=== PATIENT | female | born 1960 | race Caucasian/White ===

== ENCOUNTER 2018-01-19 13:10 | Outpatient (CLI) | payer MEDICAID ==
[~2018-01-19] VITALS: Ht 165.1 cm; Wt 91.6 kg
[~2018-01-19 13:10] MED LIST: ALBUNEBRX IH; BLAC80CA PO; CMBV14.7IN IH; CYCL10TA45 GT; DEXL60CA PO; DICL100G13 TOP; DULO60CA6 PO; FENO145T20 PO; FLUT1DIS26 IH; FLUT50DI IH; GABA600T PO; GINK120C PO; LEVO125T6 PO; LISI10TA2 PO; OMG1KC PO; ROSU20TA14 PO; VIT1CAPS16 PO; VIT1TABL57 PO; ZINC50TA49 PO
[2018-01-19] MEDS ORDERED: PREG300C PO (15:22)
[2018-01-19] MEDS ORDERED: DEXL60CA PO (15:22)
[2018-01-19] MEDS ORDERED: ARIP5TAB12 PO (15:22)
[2018-01-19] MEDS ORDERED: FLUT16SP22 NSEACH (15:22)
[2018-01-19] MEDS ORDERED: CYAN10006 PO (15:22)
[2018-01-19] MEDS ORDERED: DULO60CA58 PO (15:22)
[2018-01-19] MEDS ORDERED: GINK120C PO (15:22)
[2018-01-19] MEDS ORDERED: LEVO112T55 PO (15:22)
[2018-01-19] MEDS ORDERED: IPRA4AER IH (15:22)
[2018-01-19] MEDS ORDERED: CYCL10TA9 PO (15:22)
[2018-01-19] MEDS ORDERED: ROSU20TA31 PO (15:22)
[2018-01-19] MEDS ORDERED: CHOL100045 PO (15:22)
[2018-01-19] MEDS ORDERED: LOSA100T8 PO (15:22)
[2018-01-19] MEDS ORDERED: BUDE10.2 IH (15:22)
[2018-01-19] MEDS ORDERED: DICL100G18 TP (15:22)
== END 2018-01-19 15:23 | disposition home or self-care (01) ==
LOC: PREOP 13:10
PROVIDERS: ATTEND Surgery
DX: Z01.818 Encounter for other preprocedural examination (principal)

== ENCOUNTER 2018-01-25 09:16 | Day surgery (SDC) | payer MEDICARE, MEDICAID ==
[~2018-01-25] VITALS: Ht 165.1 cm; Wt 91.6 kg
[~2018-01-25 09:16] MED LIST changes: +ARIP5TAB12 PO; +BUDE10.2 IH; +CHOL100045 PO; +CYAN10006 PO; +CYCL10TA9 PO; +DICL100G18 TP; +DULO60CA58 PO; +FLUT16SP22 NSEACH; +IPRA4AER IH; +LEVO112T55 PO; +LOSA100T8 PO; +PREG300C PO; +ROSU20TA31 PO
--- OUTSIDE RECORDS SUMMARY | 2018-01-25 09:20 | XMS REPORT | Continuity of Care Document ---
Author Author [facility] Organization [facility] Address Unknown Phone Unavailable Allergies Active Description Code Type Severity Reaction Onset Reported/Identified Relationship to Patient Clinical Status Yes No Known Drug Allergies [id number] Drug Allergy Unknown N/A 10/10/2010 Medications There is no data. Problems Date Dx Coded Attending Type Code Diagnosis Diagnosed By 01/19/2018 CHACE BASSETT, JASMIN Myers Ot Z01.818 ENCOUNTER FOR OTHER PREPROCEDURAL EXAMIN 01/19/2018 JASMIN MAS MD Ot Z01.818 ENCOUNTER FOR OTHER PREPROCEDURAL EXAMIN 01/19/2018 JASMIN MAS MD Ot Z01.818 ENCOUNTER FOR OTHER PREPROCEDURAL EXAMIN Procedures There is no data. Results There is no data. Encounters ACCT No. Visit Date/Time Discharge Status Pt. Type Provider Facility Loc./Unit Complaint [id number] 01/19/2018 13:10:00 01/19/2018 15:23:00 DIS Outpatient JASMIN MAS MD [facility] PREOP EGD [id number] 04/11/2013 09:17:00 04/11/2013 12:00:00 DIS Outpatient [id number] 04/07/2013 07:11:00 04/07/2013 23:59:59 CLS Outpatient [id number] 01/25/2018 09:16:00 ACT Outpatient JASMIN MAS MD [facility] ENDO MORRIS'S/GERD 61 01/25/2018 08:51:52 ACT Outpatient Pamela Edwards
[2018-01-25] MEDS ORDERED: NS IV 500 ML 500 ML IV PRN (09:24)
[2018-01-25] MEDS ORDERED: HURRICAINE EXT TUBE (BENZOCAINE) XX PRN (09:30)
[2018-01-25] MEDS ORDERED: MIDAZOLAM 2 MG/2 ML (VERSED) VIAL IVP ONE (09:30)
[2018-01-25] MEDS ORDERED: fentaNYL INJECTION 100 MCG/2 ML AMP IVP ONE (09:30)
[2018-01-25] MEDS ORDERED: MIDAZOLAM 2 MG/2 ML (VERSED) VIAL ONE ×3 (09:36→09:37)
--- NOTE | 2018-01-25 09:36 | History & Physicial ---
History of Present Illness History of Present Illness Reason for visit/HPI to undergo an upper endoscopy regarding previously found Frances's esophagitis and ongoing symptoms of reflux. Date of Admission 01/25/18 Date Seen by a Provider: Jan 25, 2018 Time Seen by a Provider: 09:31 I consulted on this patient on 01/25/18 09:31 Attending Physician Jasmin Diaz MD Admitting Physician Pamela Edwards DO Consult Allergies and Home Medications Allergies Coded Allergies: No Known Drug Allergies (Unverified , 10/10/10) Home Medications Albuterol/Ipratropium 4 Gm Aero, 2 PUFF IH Q4H PRN for WHEEZING, (Reported) Aripiprazole 5 Mg Tablet, 5 MG PO DAILY, (Reported) Budesonide/Formoterol Fumarate 10.2 Gm Hfa.aer.ad, 2 PUFF IH BID, (Reported) Cholecalciferol (Vitamin D3) 1,000 Unit Tablet, 4,000 UNIT PO DAILY, (Reported) Cyanocobalamin (Vitamin B-12) 1,000 Mcg Tablet, 1,000 MCG PO DAILY, (Reported) Cyclobenzaprine HCl 10 Mg Tablet, 10 MG PO TID, (Reported) Dexlansoprazole 60 Mg Cap.dr.bp, 60 MG PO DAILY, (Reported) Diclofenac Sodium 100 Gm Gel..gram., 2 GM TP TID PRN for JOINT PAIN, (Reported) Duloxetine HCl 60 Mg Capsule.dr, 60 MG PO BID, (Reported) Fluticasone Propionate 16 Gm [place].susp, 2 SPRAY NSEACH DAILY, (Reported) Ginkgo Biloba Extract 120 Mg Capsule, 120 MG PO DAILY, (Reported) Levothyroxine Sodium 112 Mcg Tablet, 112 MCG PO DAILY, (Reported) Losartan Potassium 100 Mg Tablet, 100 MG PO DAILY, (Reported) Pregabalin 300 Mg Capsule, 300 MG PO TID, (Reported) Rosuvastatin Calcium 20 Mg Tablet, 20 MG PO DAILY, (Reported) Patient Home Medication List Home Medication List Reviewed: Yes Past Cyfqswe-Pzkddg-Uxxtpn Hx Patient Social History Marrital Status: Employed/Student: retired Type Used: Cigarettes Recent Foreign Travel: No Contact w/other who traveled: No Recent Hopitalizations: No Immunizations Up To Date Date of Pneumonia Vaccine: Mar 03, 2012 Date of Influenza Vaccine: Jan 11, 2018 Seasonal Allergies Seasonal Allergies: Yes Surgeries Adenoidectomy, Gallbladder, Hysterectomy, Thyroidectomy, Tonsillectomy, Tubal Ligation Respiratory Yes COPD Cardiovascular Yes Hypertension Neurological Yes Headaches /Migraines, Neuropathy 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 0.0oz. [id number]; 33.6 BMI Method: General Appearance: Anxious Neck: Normal Inspection Respiratory: Lungs Clear Cardiovascular: Regular Rate, Rhythm Gastrointestinal: Non Tender, Soft Extremity: Normal Inspection Neurologic/Psychiatric: Alert, Oriented x3 Skin: Warm/Dry Assessment/Plan Assessment and Plan lady with symptoms of reflux disease and previous Frances's esophagitis. Reports of dysphagia. For upper endoscopy with possible balloon dilatation Admission Diagnosis Admission Status: Other (Outpt Proc) JASMIN DIAZ MD Jan 25, 2018 09:36
[2018-01-25] MEDS ORDERED: HURRICAINE EXT TUBE (BENZOCAINE) ONE (09:37)
[2018-01-25] MEDS ORDERED: fentaNYL INJECTION 100 MCG/2 ML AMP ONE (09:37)
--- NOTE | 2018-01-25 09:38 | Conscious Sedation/ASA ---
Conscious Sedation Pre-Proced Time 09:38 ASA Score 2 For ASA 3 and 4: Consider anesthesia and medical clearance. Also, for patients with a history of failed moderate sedation consider anesthesia. Airway Lungs Heart ASA score ASA 1: a normal healthy patient ASA 2: a patient with a mild systemic disease (mid diabetes, controlled hypertension, obesity ASA 3: a patient with a severe systemic disease that limits activity (angina , COPD, prior Myocardial infarction) ASA 4: a patient with an incapacitating disease that is a constant threat to life (CHF, renal failure) ASA 5: a moribund patient not expected to survive 24 hrs. (ruptured aneurysm) ASA 6: a declared brain patient whose organs are being harvested. For emergent operations, add the letter E after the classification Mallampati Classification Grade 2 Sedation Plan Discussed options with patient/fam The patient is an appropriate candidate to undergo the planned procedure, sedation, and anesthesia. The patient immediately re-assessed prior to indication. JASMIN MAS MD Jan 25, 2018 09:38
[2018-01-25 09:41] VITALS: BP 110/86
--- NOTE | 2018-01-25 09:47 | Endo Procedure Record ---
Endo Procedure Report Date of Procedure Last Colonoscopy: No Jan 25, 2018 Surgeon (s) JASMIN MAS MD Post Procedure/Op Diagnosis Hiatal hernia with esophagitis. Distal esophageal stricture Procedure Performed EGD with antral biopsy for H. pylori Balloon dilatation of esophageal stricture Description of Procedure Anesthesia Type: Conscious Sedation Specimen(s) collected/removed antral mucosa for H. pylori Description of the Procedure indication for the procedure: This LADY came in for an upper endoscopy to evaluate and possibly treat ongoing dysphagia. In the past, she had undergone balloon dilatation of an esophageal stricture with relief of her symptoms. Informed consent was obtained after reviewing the procedure in detail. Description of procedure: She was placed in left lateral decubitus position and her vital signs were monitored. Conscious sedation was achieved using Versed and fentanyl. The FLEXIBLE gastroscope was then introduced down the esophagus, past the stomach, into proximal DUODENUM. Findings: Esophagus: Hiatal hernia with esophagitis. Strips of gastric mucosa creeping up the distal esophagus, up to 38 cm were also identified. In addition, a smooth, concentric peptic stricture was encountered at the distal end of the esophagus. It was dilated to 20 mm with a balloon. Stomach: Previously found gastric ulcers have healed. Antral biopsy was repeated. Duodenum: Normal She tolerated the procedure well and was taken back to the nursing area in a stable condition. Impression Recurrent peptic esophageal stricture. Balloon dilatation completed. Copy Copies To 1: GAVIN WAGNER XAVIER M MD Jan 25, 2018 09:47
--- NOTE | 2018-01-25 10:11 | Discharge Inst-Simple/Standard ---
Discharge Inst-Standard Discharge Medications New, Converted or Re-Newed RX: Other Patient Instructions/Follow Up Plan of Care/Instructions/FU: follow-up with Dr. Edwards Activity as Tolerated: Yes Discharge Diet: No Restrictions JASMIN MAS MD Jan 25, 2018 10:11
[2018-01-25 10:30] VITALS: BP 116/63
[2018-01-25 10:50] VITALS: BP 118/65
[2018-01-25 10:56] VITALS: BP 118/65
== END 2018-01-25 10:57 | disposition home or self-care (01) ==
LOC: ENDO 09:16
PROVIDERS: ATTEND Surgery
DX: K22.2 Esophageal obstruction (principal); K44.9 Diaphragmatic hernia without obstruction or gangrene; K21.0 Gastro-esophageal reflux disease with esophagitis; F17.210 Nicotine dependence, cigarettes, uncomplicated; J44.9 Chronic obstructive pulmonary disease, unspecified; I10 Essential (primary) hypertension; F41.9 Anxiety disorder, unspecified; F32.9 Major depressive disorder, single episode, unspecified; G62.9 Polyneuropathy, unspecified; Z79.899 Other long term (current) drug therapy
CPT/HCPCS: 88305

== ENCOUNTER 2018-08-22 15:52 | Inpatient (IN) | payer MEDICARE, MEDICAID ==
[~2018-08-22] VITALS: Ht 162.6 cm; Wt 93.0 kg
[~2018-08-22 15:52] MED LIST changes: +FLUT16SP22 NS; -FLUT16SP22 NSEACH; +LOSA100T57 PO; -LOSA100T8 PO
[2018-08-22] MEDS ORDERED: RT-ALBUTEROL SULF 2.5 MG/3 ML PRE-MIX VIAL INH STA ×2 (16:11→18:16)
[2018-08-22] MEDS ORDERED: methylPREDNISolone 125 MG (Solu-MEDROL) VIAL IV STA (16:11)
[2018-08-22] MEDS ORDERED: RT-ALBUTEROL/IPRATROPIUM 3 ML (DUONEB) VIAL INH ONE (16:15)
--- NOTE | 2018-08-22 16:33 | ED General ---
General Chief Complaint: Lower Extremity Stated Complaint: LEG NUMBNESS Nursing Triage Note: pt was trying to get in her car et her bilateral legs were numb. Pt doesn't feel numb upon arrival. Pt was seen for this not to long ago and nothing was done she states. No other symptoms. No pain. Pt is wheezy bialterally. Pt is a smoker Nursing Sepsis Screen: No Definite Risk Source of Information: Patient Exam Limitations: No Limitations History of Present Illness Date Seen by Provider: Aug 22, 2018 Time Seen by Provider: 16:05 Initial Comments Here with report of numbness to the lower legs. She gets this occasionally. She was at the [facility] and was trying to get back to her car. She got there and was weak and was unable to get in. She was assisted to the ground. EMS was summoned and found her to have an initial O2 sat of 83% on room air. She is not normally on oxygen but does have COPD. She was initiated on oxygen and that did help. States her numbness is actually getting a little better now. She is wheezing quite a bit. Still has some weakness but that is better. Follows with Dr. Edwards. Timing/Duration: 1/2 Hour Severity: Moderate Modifying Factors: improves with Rest Associated Systoms: No Chest Pain, No Cough, No Fever/Chills, No Headaches, No Nausea/Vomiting; Shortness of Air, Weakness Allergies and Home Medications Allergies Coded Allergies: No Known Drug Allergies (Unverified , 10/10/10) Home Medications Albuterol/Ipratropium 4 Gm Aero, 2 PUFF IH Q4H PRN for WHEEZING, (Reported) Aripiprazole 5 Mg Tablet, 5 MG PO DAILY, (Reported) Budesonide/Formoterol Fumarate 10.2 Gm Hfa.aer.ad, 2 PUFF IH BID, (Reported) Cholecalciferol (Vitamin D3) 1,000 Unit Tablet, 4,000 UNIT PO DAILY, (Reported) Cyanocobalamin (Vitamin B-12) 1,000 Mcg Tablet, 1,000 MCG PO DAILY, (Reported) Cyclobenzaprine HCl 10 Mg Tablet, 10 MG PO TID, (Reported) Dexlansoprazole 60 Mg Jorge.bp, 60 MG PO DAILY, (Reported) Diclofenac Sodium 100 Gm Gel..gram., 2 GM TP TID PRN for JOINT PAIN, (Reported) Duloxetine HCl 60 Mg Capsule.dr, 60 MG PO BID, (Reported) Fluticasone Propionate 16 Gm [place].susp, 2 SPRAY NSEACH DAILY, (Reported) Ginkgo Biloba Extract 120 Mg Capsule, 120 MG PO DAILY, (Reported) Levothyroxine Sodium 112 Mcg Tablet, 112 MCG PO DAILY, (Reported) Losartan Potassium 100 Mg Tablet, 100 MG PO DAILY, (Reported) Pregabalin 300 Mg Capsule, 300 MG PO TID, (Reported) Rosuvastatin Calcium 20 Mg Tablet, 20 MG PO DAILY, (Reported) Patient Home Medication List Home Medication List Reviewed: Yes Review of Systems Review of Systems Constitutional: see HPI; No chills, No fever; weakness EENTM: no symptoms reported Respiratory: see HPI, dyspnea on exertion, wheezing Cardiovascular: No edema, No palpitations Gastrointestinal: No abdominal pain, No nausea, No vomiting Genitourinary: decreased output; No dysuria : No Musculoskeletal: No muscle pain; muscle weakness Skin: No change in color, No dryness Psychiatric/Neurological: Numbness, Tingling Hematologic/Lymphatic: No Symptoms Reported Immunological/Allergic: no symptoms reported All Other Systems Reviewed Negative Unless Noted: Yes Past Cbogemz-Gbbfkr-Iwonjv Hx Past Med/Social Hx: Reviewed Nursing Past Med/Soc Hx Patient Social History Alcohol Use: Denies Use Recreational Drug Use: No Smoking Status: Current Everyday Smoker Type Used: Cigarettes Recent Foreign Travel: No Contact w/Someone Who Travel: No Recent Infectious Disease Expo: No Recent Hopitalizations: No Immunizations Up To Date Date of Pneumonia Vaccine: Mar 03, 2012 Date of Influenza Vaccine: Jan 11, 2018 Seasonal Allergies Seasonal Allergies: Yes Past Medical History Adenoidectomy, Gallbladder, Hysterectomy, Thyroidectomy, Tonsillectomy, Tubal Ligation Respiratory: Yes COPD Cardiac: Yes Hypertension Neurological: Yes 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 0.0oz. 95.213111no; 33.6 BMI Method:Stated General Appearance: No Apparent Distress, WD/WN HEENT: PERRL/EOMI, Pharynx Normal Neck: Non Tender, Supple Respiratory: Lungs Clear, Decreased Breath Sounds, Wheezing Cardiovascular: Regular Rate, Rhythm, No Murmur Gastrointestinal: Non Tender, Soft Back: Normal Inspection, No CVA Tenderness, No Vertebral Tenderness Extremity: Normal Range of Motion, No Pedal Edema Neurologic/Psychiatric: Alert, Oriented x3, Sensory Deficit (reports tingling to both feet) Skin: Normal Color, Warm/Dry Comments Dorsalis pedis and posterior tibial pulses normal and equal bilateral Progress/Results/Core Measures Suspected Sepsis Recent Fever Within 48 Hours: No Infection Criteria Present: None New/Unexplained Altered Menta: No Sepsis Screen: No Definite Risk SIRS Temperature:98.9 Pulse: 95 Respiratory Rate: 22 Laboratory Tests 08/22/18 16:37: White Blood Count 11.8H Blood Pressure 99 /53 Mean: 68 Laboratory Tests 08/22/18 16:37: Creatinine 0.84, Platelet Count 256, Total Bilirubin 0.4 Results/Orders Lab Results Laboratory Tests Test 08/22/18 16:37 08/22/18 17:43 Range/Units White Blood Count 11.8 H 4.3-11.0 10^3/uL Red Blood Count 3.99 L 4.35-5.85 10^6/uL Hemoglobin 11.8 11.5-16.0 G/DL Hematocrit 34 L 35-52 % Mean Corpuscular Volume 85 80-99 FL Mean Corpuscular Hemoglobin 30 25-34 PG Mean Corpuscular Hemoglobin Concent 35 32-36 G/DL Red Cell Distribution Width 16.7 H 10.0-14.5 % Platelet Count 256 130-400 10^3/uL Mean Platelet Volume 9.6 7.4-10.4 FL Neutrophils (%) (Auto) 80 H 42-75 % Lymphocytes (%) (Auto) 16 12-44 % Monocytes (%) (Auto) 4 0-12 % Eosinophils (%) (Auto) 0 0-10 % Basophils (%) (Auto) 0 0-10 % Neutrophils # (Auto) 9.4 H 1.8-7.8 X 10^3 Lymphocytes # (Auto) 1.9 1.0-4.0 X 10^3 Monocytes # (Auto) 0.5 0.0-1.0 X 10^3 Eosinophils # (Auto) 0.0 0.0-0.3 10^3/uL Basophils # (Auto) 0.0 0.0-0.1 10^3/uL Sodium Level 125 *L 135-145 MMOL/L Potassium Level 3.2 L 3.6-5.0 MMOL/L Chloride Level 91 L 98-107 MMOL/L Carbon Dioxide Level 21 21-32 MMOL/L Anion Gap 13 5-14 MMOL/L Blood Urea Nitrogen 4 L 7-18 MG/DL Creatinine 0.84 0.60-1.30 MG/DL Estimat Glomerular Filtration Rate > 60 BUN/Creatinine Ratio 5 Glucose Level 90 70-105 MG/DL Calcium Level 7.4 L 8.5-10.1 MG/DL Corrected Calcium 8.4 L 8.5-10.1 MG/DL Magnesium Level 1.2 L 1.8-2.4 MG/DL Total Bilirubin 0.4 0.1-1.0 MG/DL Aspartate Amino Transf (AST/SGOT) 11 5-34 U/L Alanine Aminotransferase (ALT/SGPT) 9 0-55 U/L Alkaline Phosphatase 123 40-136 U/L C-Reactive Protein High Sensitivity 4.89 H 0.00-0.50 MG/DL Total Protein 4.9 L 6.4-8.2 GM/DL Albumin 2.8 L 3.2-4.5 GM/DL Urine Color YELLOW Urine Clarity CLEAR Urine pH 6 5-9 Urine Specific [place] 1.010 L 1.016-1.022 Urine Protein NEGATIVE NEGATIVE Urine Glucose (UA) NEGATIVE NEGATIVE Urine Ketones NEGATIVE NEGATIVE Urine Nitrite NEGATIVE NEGATIVE Urine Bilirubin NEGATIVE NEGATIVE Urine Urobilinogen NORMAL NORMAL MG/DL Urine Leukocyte Esterase NEGATIVE NEGATIVE Urine RBC (Auto) NEGATIVE NEGATIVE Urine RBC NONE /HPF Urine WBC NONE /HPF Urine Squamous Epithelial Cells 0-2 /HPF Urine Crystals NONE /LPF Urine Bacteria NEGATIVE /HPF Urine Casts NONE /LPF Urine Mucus NEGATIVE /LPF Urine Culture Indicated NO My Orders Orders - ASTRID PONCE MD Chest 1 View, Ap/Pa Only (08/22/18 16:11) Cbc With Automated Diff (08/22/18 16:11) Comprehensive Metabolic Panel (08/22/18 16:11) Hs C Reactive Protein (08/22/18 16:11) Magnesium (08/22/18 16:11) Ua Culture If Indicated (08/22/18 16:11) Albuterol Pre-Mix Nebs (Rt) (Proventil (08/22/18 16:11) Albuterol/Ipra Inhalation Soln (Duoneb I (08/22/18 16:15) Methylprednisolone Sod Succ (Solu-Medrol (08/22/18 16:11) Svn Small Volume Nebulizer (08/22/18 16:11) Svn Small Volume Nebulizer (08/22/18 16:11) Albuterol Pre-Mix Nebs (Rt) (Proventil (08/22/18 18:16) Ipratropium 0.02% Neb Solution (Atrovent (08/22/18 18:30) Svn Small Volume Nebulizer (08/22/18 18:16) Svn Small Volume Nebulizer (08/22/18 18:16) Medications Given in ED Current Medications Medications Dose Ordered Sig/Allan Route Start Time Stop Time Status Last Admin Dose Admin Albuterol/ Ipratropium 3 ml ONCE ONCE INH 08/22/18 16:15 08/22/18 16:16 DC 08/22/18 16:21 3 ML Vital Signs/I&O 08/22/18 08/22/18 15:58 16:22 Temp 98.9 Pulse 95 Resp 22 B/P (MAP) 99/53 (68) Pulse Ox 95 97 O2 Delivery Room Air Nasal Cannula O2 Flow Rate 2.00 2.00 Capillary Refill : Less Than 3 Seconds Blood Pressure Mean: 68 Progress Note : Progress Note Seen and evaluated. IV by EMS with normal saline 1 L bolus running. This will continue. Solu-Medrol 125 mg IV ordered. Duo neb treatment and albuterol treatment 3 ordered. Monitor patient. This did improve her symptoms a bit. 1816: Patient now requiring oxygen again. States not at baseline. COPD acute exacerbation noted. Continuous hour-long treatment ordered. Patient also noted to have hyponatremia. We will fluid restrict and continue normal saline. I did discuss the case with Dr. Ni and she accepts patient for admission, inpatient status for Dr. Edwards. We will continue inpatient nebulizer treatments as well as Solu-Medrol 60 mg IV every 6 hours. Patient agrees with admission. Diagnostic Imaging Diagonstic Imaging: Xray Plain Films/CT/US/NM/MRI: chest Comments [facility], [place] NAME: [facility] REC#: [id number] PT STATUS: REG ER : 1960 PHYSICIAN: ASTRID PONCE MD ADMIT DATE: 08/22/18/ER Draft Date of Exam:08/22/18 CHEST 1 VIEW, AP/PA ONLY INDICATION: Wheezing. Comparison with 10/10/2010. FINDINGS: Portable chest. Lungs are well-aerated without evidence of air trapping. There are no infiltrates. Heart is not enlarged. No pulmonary edema. No hilar adenopathy. No bony abnormalities. IMPRESSION: Normal portable chest. Dictated on workstation # [id number] Dict: 08/22/18 1724 Trans: 08/22/18 1727 [id number] Interpreted by: LUCRECIA KIRAN MD Electronically signed by: Departure Communication (Admissions) Time/Spoke to Admitting Phy: 18:17 Impression Primary Impression: COPD with acute exacerbation Additional Impression: Hyponatremia Disposition: ADMITTED INPATIENT Condition: Stable Admissions Decision to Admit Reason: Admit from ER (General) Decision to Admit/Date: Aug 22, 2018 Time/Decision to Admit Time: 18:17 Departure-Patient Inst. Referrals: GAVIN EDWARDS DO (PCP/Family) Primary Care Physician ASTRID PONCE MD Aug 22, 2018 16:33
[2018-08-22 16:44] LABS: BASOPHILS % (AUTO) 0 % (0-10); EOSINOPHILS % (AUTO) 0 % (0-10); HEMATOCRIT 34 % (35-52); HEMOGLOBIN 11.8 G/DL (11.5-16.0); LYMPHOCYTES # (AUTO) 1.9 X 10^3 (1.0-4.0); LYMPHOCYTES % (AUTO) 16 % (12-44); MEAN CORPUSCULAR HEMOGLOBIN 30 PG (25-34); MEAN CORPUSCULAR HGB CONC 35 G/DL (32-36); MEAN CORPUSCULAR VOLUME 85 FL (80-99); MEAN PLATELET VOLUME 9.6 FL (7.4-10.4); MONOCYTES # (AUTO) 0.5 X 10^3 (0.0-1.0); MONOCYTES % (AUTO) 4 % (0-12); NEUTROPHILS # (AUTO) 9.4 X 10^3 (1.8-7.8); NEUTROPHILS % (AUTO) 80 % (42-75); PLATELET COUNT 256 10^3/uL (130-400); RED CELL DISTRIBUTION WIDTH 16.7 % (10.0-14.5); WHITE BLOOD COUNT 11.8 10^3/uL (4.3-11.0)
--- NOTE | 2018-08-22 16:52 | NUR ---
pt resting with eyes closed. In no apparent distress at this time
[2018-08-22 17:07] LABS: ALANINE AMINOTRANSFERASE 9 U/L (0-55); ALBUMIN 2.8 GM/DL (3.2-4.5); ALKALINE PHOSPHATASE 123 U/L (40-136); BILIRUBIN,TOTAL 0.4 MG/DL (0.1-1.0); BUN/CREATININE RATIO 5; CALCIUM 7.4 MG/DL (8.5-10.1); CARBON DIOXIDE 21 MMOL/L (21-32); CHLORIDE 91 MMOL/L (98-107); CREATININE SERUM 0.84 MG/DL (0.60-1.30); GFR ESTIMATED > 60; GLUCOSE 90 MG/DL (70-105); MAGNESIUM 1.2 MG/DL (1.8-2.4); POTASSIUM 3.2 MMOL/L (3.6-5.0); TOTAL PROTEIN 4.9 GM/DL (6.4-8.2)
[2018-08-22 17:13] LABS: SODIUM 125 MMOL/L (135-145)
--- NOTE | 2018-08-22 17:13 | NUR ---
lab called, sodium is 125
--- NOTE | 2018-08-22 17:21 | NUR ---
pt has two pressure sores on her buttocks, she says it has had drainage
--- NOTE | 2018-08-22 17:27 | Diagnostic Imaging Report ---
INDICATION: Wheezing. Comparison with 10/10/2010. FINDINGS: Portable chest. Lungs are well-aerated without evidence of air trapping. There are no infiltrates. Heart is not enlarged. No pulmonary edema. No hilar adenopathy. No bony abnormalities. IMPRESSION: Normal portable chest. Dictated by: Dictated on workstation # [id number]
[2018-08-22 17:48] LABS: BILIRUBIN,URINE NEGATIVE (NEGATIVE); CLARITY,URINE CLEAR; COLOR,URINE YELLOW; GLUCOSE, URINE (UA) NEGATIVE (NEGATIVE); KETONES,URINE NEGATIVE (NEGATIVE); LEUKOCYTE ESTERASE ,URINE NEGATIVE (NEGATIVE); NITRITE,URINE NEGATIVE (NEGATIVE); PH,URINE 6 (5-9); PROTEIN,URINE NEGATIVE (NEGATIVE); UROBILINOGEN,URINE NORMAL (NORMAL)
[2018-08-22 17:54] LABS: BACTERIA,URINE NEGATIVE /HPF; SQUAMOUS EPITHELIAL CELL,UR 0-2 /HPF
--- NOTE | 2018-08-22 18:00 | NUR ---
tried to wean pt off oxygen since she is now on oxygen at home but patient did not tolerate.
--- NOTE | 2018-08-22 18:26 | NUR ---
pt lungs sound clear bilateral. Pt is complaining of pain on her buttocks from the sores
[2018-08-22] MEDS ORDERED: RT-IPRATROPIUM (ATROVENT) 0.5MG/2.5ML AMP IH ONE (18:30)
--- NOTE | 2018-08-22 18:55 | NUR ---
REC'D PER CART FROM ED. ORIENTED TO ROOM AND SURROUNDINGS. REPORT TO ONCOMING RN JUAN DAVID FOR ADMISSION. IV INFUSING AND RT RX CONTINUES.
[2018-08-22 19:07] VITALS: BP 109/57
[2018-08-22 19:47] VITALS: BP 109/57
[2018-08-22] MEDS ORDERED: RT-ALBUTEROL SULF 2.5 MG/3 ML PRE-MIX VIAL INH PRN (20:30)
[2018-08-22] MEDS: RT-ALBUTEROL/IPRATROPIUM 3 ML (DUONEB) VIAL INH SCH (21:14)
[2018-08-22] MEDS: NS IV 1000 ML 1,000 ML IV SCH (21:45)
[2018-08-22] MEDS: methylPREDNISolone 125 MG (Solu-MEDROL) VIAL IVP SCH (21:54)
[2018-08-23] VITALS: BP 92/55
[2018-08-23] MEDS: RT-ALBUTEROL/IPRATROPIUM 3 ML (DUONEB) VIAL INH SCH ×6 (01:02→21:52)
[2018-08-23 04:00] VITALS: BP 101/51
[2018-08-23] MEDS: methylPREDNISolone 125 MG (Solu-MEDROL) VIAL IVP SCH ×4 (04:18→21:16)
[2018-08-23 06:39] LABS: BASOPHILS % (AUTO) 0 % (0-10); EOSINOPHILS % (AUTO) 0 % (0-10); HEMATOCRIT 36 % (35-52); LYMPHOCYTES # (AUTO) 0.6 X 10^3 (1.0-4.0); LYMPHOCYTES % (AUTO) 6 % (12-44); MEAN CORPUSCULAR HEMOGLOBIN 29 PG (25-34); MEAN CORPUSCULAR HGB CONC 33 G/DL (32-36); MEAN CORPUSCULAR VOLUME 87 FL (80-99); MEAN PLATELET VOLUME 9.7 FL (7.4-10.4); MONOCYTES # (AUTO) 0.2 X 10^3 (0.0-1.0); MONOCYTES % (AUTO) 2 % (0-12); NEUTROPHILS # (AUTO) 10.5 X 10^3 (1.8-7.8); NEUTROPHILS % (AUTO) 93 % (42-75); PLATELET COUNT 249 10^3/uL (130-400); RED CELL DISTRIBUTION WIDTH 17.1 % (10.0-14.5); WHITE BLOOD COUNT 11.3 10^3/uL (4.3-11.0)
[2018-08-23 07:03] LABS: ALANINE AMINOTRANSFERASE 11 U/L (0-55); ALBUMIN 2.9 GM/DL (3.2-4.5); ALKALINE PHOSPHATASE 123 U/L (40-136); BILIRUBIN,TOTAL 0.2 MG/DL (0.1-1.0); BUN/CREATININE RATIO 6; CALCIUM 8.4 MG/DL (8.5-10.1); CARBON DIOXIDE 24 MMOL/L (21-32); CHLORIDE 98 MMOL/L (98-107); CREATININE SERUM 0.81 MG/DL (0.60-1.30); GFR ESTIMATED > 60; GLUCOSE 191 MG/DL (70-105); POTASSIUM 3.6 MMOL/L (3.6-5.0); SODIUM 131 MMOL/L (135-145); TOTAL PROTEIN 5.2 GM/DL (6.4-8.2)
[2018-08-23 07:24] LABS: BAND NEUTROPHILS 0 %; BASOPHILS % (MANUAL) 0 %; EOSINOPHILS % (MANUAL) 0 %; LYMPHOCYTES % (MANUAL) 1 %; MONOCYTES % (MANUAL) 3 %; NEUTROPHILS % (MANUAL) 96 %
[2018-08-23 07:25] LABS: ANISOCYTOSIS MODERATE
[2018-08-23 08:00] VITALS: BP 120/67
[2018-08-23] MEDS ORDERED: PREG100C PO (11:34)
[2018-08-23] MEDS ORDERED: ARIP5TAB20 PO (11:34)
[2018-08-23] MEDS ORDERED: CALC-901 PO (11:34)
[2018-08-23] MEDS ORDERED: ALBU2.5V4 NEB (11:41)
--- NOTE | 2018-08-23 11:41 | NUR ---
SPOKE WITH THE PATIENT ABOUT HER MEDICATIONS. WE WENT OVER THE EXT MED HX AND SHE STATES SHE HAD REQUESTED A MED LIST BE SENT OVER FROM HER DR.OFFICE. SHE VERIFIED HOW SHE TAKES THE MEDICATIONS FILLED ON THE EXT MED HX AND I COMPARED THAT WITH THE LIST FROM THE DR. OFFICE. SHE TAKES VITAMIN B 12, CALCIUM +D, AND GINKGO BILOBA OTC. SHE STATES SHE HAS RECEIVED SAMPLES OF HER SYMBICORT IN THE PAST. I ADDED ALBUTEROL NEBULIZER SOLUTION TO THE MED REC SINCE IT WAS RECENTLY ORDERED ON THE LIST FROM THE OFFICE.
[2018-08-23 12:00] VITALS: BP 105/58
[2018-08-23 15:30] VITALS: BP 106/55
[2018-08-23] MEDS: NS IV 1000 ML 1,000 ML IV SCH (16:10)
[2018-08-23] MEDS: CALCIUM CARB + VIT D 600 MG (CALCARB + D) TAB PO SCH (16:10)
[2018-08-23] MEDS: RT-ADVAIR HFA 115/21 MCG PER PUFF IH SCH (18:20)
[2018-08-23 19:58] VITALS: BP 143/65
--- NOTE | 2018-08-23 20:55 | History & Physicial ---
History of Present Illness History of Present Illness Reason for visit/HPI This is a 58 year old female who was at the [facility] and was on her way back to her car when she became weak and her legs went numb. She was brought to the emergency room where she was found to be hypoxic with an oxygen saturation of 83%. She was also found to be hyponatremic with a sodium of 125. She was found to be in an acute COPD exacerbation. She placed on oxygen, started on IVFs and admitted for further treatment. Date of Admission Aug 22, 2018 at 18:17 Date Seen by a Provider: Aug 23, 2018 Time Seen by a Provider: 12:30 I consulted on this patient on 08/23/18 20:49 Attending Physician Pamela Edwards DO Admitting Physician Pamela Edwards DO Consult Allergies and Home Medications Allergies Coded Allergies: No Known Drug Allergies (Unverified , 10/10/10) Home Medications Albuterol Sulfate 2.5 Mg/3 Ml Vial.neb, 2.5 MG NEB EVERY 4-6 HOURS PRN for SHORTNESS OF BREATH, (Reported) Albuterol/Ipratropium 4 Gm Aero, 2 PUFF IH Q4H PRN for WHEEZING, (Reported) Aripiprazole 5 Mg Tablet, 5 MG PO DAILY, (Reported) Budesonide/Formoterol Fumarate 10.2 Gm Hfa.aer.ad, 2 PUFF IH BID, (Reported) Calcium Carbonate/Vitamin D3 1 Each Tablet, 1 TAB PO HS, (Reported) Cyanocobalamin (Vitamin B-12) 1,000 Mcg Tablet, 1,000 MCG PO HS, (Reported) Cyclobenzaprine HCl 10 Mg Tablet, 10 MG PO TID, (Reported) Dexlansoprazole 60 Mg Cap.dr.bp, 60 MG PO DAILY, (Reported) Diclofenac Sodium 100 Gm Gel..gram., 2 GM TP TID PRN for JOINT PAIN, (Reported) Duloxetine HCl 60 Mg Capsule.dr, 60 MG PO BID, (Reported) Fluticasone Propionate 16 Gm [place].susp, 2 SPRAYS NS DAILY, (Reported) Ginkgo Biloba Extract 120 Mg Capsule, 120 MG PO HS, (Reported) Levothyroxine Sodium 112 Mcg Tablet, 112 MCG PO DAILY, (Reported) Losartan Potassium 100 Mg Tablet, 100 MG PO DAILY, (Reported) Pregabalin 100 Mg Capsule, 100 MG PO TID, (Reported) Rosuvastatin Calcium 20 Mg Tablet, 20 MG PO DAILY, (Reported) Patient Home Medication List Home Medication List Reviewed: Yes Past Ckjmaeq-Gvuooi-Sjtynu Hx Patient Social History Alcohol Use: Denies Use Recreational Drug Use: No Smoking Status: Current Everyday Smoker Type Used: Cigarettes Recent Foreign Travel: No Contact w/other who traveled: No Recent Hopitalizations: No Recent Infectious Disease Expo: No Immunizations Up To Date Date of Pneumonia Vaccine: Mar 03, 2012 Date of Influenza Vaccine: Jan 11, 2018 Seasonal Allergies Seasonal Allergies: Yes Surgeries Adenoidectomy, Gallbladder, Hysterectomy, Thyroidectomy, Tonsillectomy, Tubal Ligation Respiratory Yes COPD Cardiovascular Yes Hypertension Neurological Yes Headaches /Migraines, Neuropathy Reproductive System [employer] History: Hysterectomy Gastrointestinal Yes Gastroesophageal Reflux Musculoskeletal Yes Arthritis Psychosocial History of Psychiatric Problem: Yes Behavioral Health Disorders: Anxiety, Depression Family Medical History Significant Family History: No Pertinent Family Hx Family Hx: Copd 19 FATHER 19 MOTHER Diabetes mellitus 19 MOTHER Hypertension 19 FATHER G8 SISTER Myocardial infarction 19 FATHER 19 MOTHER Review of Systems Constitutional: weakness EENTM: No see HPI, No no symptoms reported, No ear discharge, No hearing loss, No ear pain, No blurred vision, No double vision, No eye pain, No tearing, No vision loss, No dental problems, No hoarseness, No mouth pain, No mouth swelling, No epistaxis, No nose congestion, No nose pain, No throat pain, No throat swelling, No other Respiratory: cough, dyspnea on exertion, short of breath, wheezing Cardiovascular: No no symptoms reported, No see HPI, No chest pain, No edema, No Hx of Intervention, No palpitations, No syncope, No vascular heart diseas, No other Gastrointestinal: No RUQ, No LUQ, No RLQ, No LLQ, No no symptoms reported, No see HPI, No abdominal pain, No constipation, No diarrhea, No dysphagia, No hematemesis, No heartburn, No jaundice, No loss of appetite, No melena, No nausea, No vomiting, No other Genitourinary: No no symptoms reported, No see HPI, No decreased output, No discharge, No dysuria, No frequency, No hematuria, No hesitancy, No incontinenc e, No nocturia, No pain, No other Musculoskeletal: muscle weakness Skin: No no symptoms reported, No see HPI, No change in color, No change in hair/nails, No dryness, No hx of skin cancer, No lesions, No lumps, No pruritus, No rash, No other Psychiatric/Neurological: Numbness (of legs) Physical Exam Vital Signs Vital Signs - First Documented 08/22/18 08/22/18 15:58 20:11 Temp 98.9 Pulse 95 Resp 22 B/P (MAP) 99/53 (68) Pulse Ox 95 O2 Delivery Room Air O2 Flow Rate 2.00 FiO2 28 Capillary Refill : Less Than 3 Seconds Height, Weight, BMI Height: 5'4.00" Weight: 205lbs. 0.0oz. 92.287894di; 35.2 BMI Method:Stated General Appearance: No Apparent Distress HEENT: Normal ENT Inspection Neck: Supple Respiratory: Lungs Clear, Decreased Breath Sounds Cardiovascular: Regular Rate, Rhythm, Systolic Murmur Gastrointestinal: Normal Bowel Sounds, Non Tender, Soft Rectal: Deferred Back: No CVA Tenderness Extremity: Non Tender, No Calf Tenderness, No Pedal Edema Neurologic/Psychiatric: Alert, Oriented x3 Skin: Warm/Dry Comments Laboratory Tests 08/23/18 06:30: White Blood Count 11.3H, Red Blood Count 4.12L, Hemoglobin 12.0, Hematocrit 36, Mean Corpuscular Volume 87, Mean Corpuscular Hemoglobin 29, Mean Corpuscular Hemoglobin Concent 33, Red Cell Distribution Width 17.1H, Platelet Count 249, Mean Platelet Volume 9.7, Neutrophils (%) (Auto) 93H, Lymphocytes (%) (Auto) 6L, Monocytes (%) (Auto) 2, Eosinophils (%) (Auto) 0, Basophils (%) (Auto) 0, Neutrophils # (Auto) 10.5H, Lymphocytes # (Auto) 0.6L, Monocytes # (Auto) 0.2, Eosinophils # (Auto) 0.0, Basophils # (Auto) 0.0, Neutrophils % (Manual) 96, Lym phocytes % (Manual) 1, Monocytes % (Manual) 3, Eosinophils % (Manual) 0, Basophils % (Manual) 0, Band Neutrophils 0, Anisocytosis MODERATE, Blood Morphology Comment , Sodium Level 131L, Potassium Level 3.6, Chloride Level 98, Carbon Dioxide Level 24, Anion Gap 9, Blood Urea Nitrogen 5L, Creatinine 0.81, Estimat Glomerular Filtration Rate > 60, BUN/Creatinine Ratio 6, Glucose Level 191H, Calcium Level 8.4L, Corrected Calcium 9.3, Total Bilirubin 0.2, Aspartate Amino Transf (AST/SGOT) 12, Alanine Aminotransferase (ALT/SGPT) 11, Alkaline Phosphatase 123, Total Protein 5.2L, Albumin 2.9L Assessment/Plan Assessment and Plan 1. Acute Hypoxia--improved with oxygen 2. Acute Exacerbation of COPD--SVNs with duoneb, IV solumedrol 3. Acute Hyponatremia--IVFs and monitor Admission Diagnosis Admission Status: Inpatient Order (span 2 midnights) Reason for Inpatient Admission: Will need IV solumedrol, IVFs and monitoring Clinical Quality Measures DVT/VTE Risk/Contraindication: Risk Factor Score Per Nursin RFS Level Per Nursing on Admit: 4+=Very High PAMELA EDWARDS DO Aug 23, 2018 20:55
[2018-08-23] MEDS ORDERED: NON-FORMULARY MEDICATION 1 EA EA (Calcium Carbonate/Vitamin D3 (Calcium 600 + Vit D 800 Ta PO SCH (21:00)
[2018-08-23] MEDS ORDERED: NON-FORMULARY MEDICATION 1 EA EA (Budesonide/Formoterol Fumarate (Symbicort 160-4.5 Mcg In IH SCH (21:00)
[2018-08-23] MEDS ORDERED: NON-FORMULARY MEDICATION 1 EA EA (Duloxetine HCl 60 MG) PO SCH (21:00)
[2018-08-23] MEDS: CYCLOBENZAPRINE 10 MG (FLEXERIL) TAB PO PRN (21:15)
[2018-08-23] MEDS: DULoxetine 30 MG (CYMBALTA) CAP PO SCH (21:15)
[2018-08-23] MEDS ORDERED: ACETAMINOPHEN 325 MG TABLET PO PRN (21:15)
[2018-08-23] MEDS: PREGABALIN 100 MG (LYRICA) CAPSULE PO SCH (21:15)
[2018-08-24 00:20] VITALS: BP 126/60
[2018-08-24] MEDS: RT-ALBUTEROL/IPRATROPIUM 3 ML (DUONEB) VIAL INH SCH ×6 (02:51→22:24)
[2018-08-24] MEDS: methylPREDNISolone 125 MG (Solu-MEDROL) VIAL IVP SCH ×2 (03:13→10:50)
[2018-08-24 04:00] VITALS: BP 113/64
[2018-08-24 05:49] LABS: BASOPHILS % (AUTO) 0 % (0-10); EOSINOPHILS % (AUTO) 0 % (0-10); HEMATOCRIT 35 % (35-52); HEMOGLOBIN 11.4 G/DL (11.5-16.0); LYMPHOCYTES # (AUTO) 0.6 X 10^3 (1.0-4.0); LYMPHOCYTES % (AUTO) 3 % (12-44); MEAN CORPUSCULAR HEMOGLOBIN 29 PG (25-34); MEAN CORPUSCULAR HGB CONC 32 G/DL (32-36); MEAN CORPUSCULAR VOLUME 89 FL (80-99); MEAN PLATELET VOLUME 9.5 FL (7.4-10.4); MONOCYTES # (AUTO) 0.4 X 10^3 (0.0-1.0); MONOCYTES % (AUTO) 2 % (0-12); NEUTROPHILS # (AUTO) 17.2 X 10^3 (1.8-7.8); NEUTROPHILS % (AUTO) 94 % (42-75); PLATELET COUNT 295 10^3/uL (130-400); WHITE BLOOD COUNT 18.2 10^3/uL (4.3-11.0)
[2018-08-24] MEDS: NS IV 1000 ML 1,000 ML IV SCH (05:58)
[2018-08-24 06:01] LABS: ALANINE AMINOTRANSFERASE 10 U/L (0-55); ALBUMIN 2.9 GM/DL (3.2-4.5); ALKALINE PHOSPHATASE 107 U/L (40-136); BILIRUBIN,TOTAL 0.2 MG/DL (0.1-1.0); BUN/CREATININE RATIO 12; CALCIUM 8.8 MG/DL (8.5-10.1); CARBON DIOXIDE 26 MMOL/L (21-32); CHLORIDE 100 MMOL/L (98-107); CREATININE SERUM 0.77 MG/DL (0.60-1.30); GFR ESTIMATED > 60; GLUCOSE 154 MG/DL (70-105); MAGNESIUM 1.9 MG/DL (1.8-2.4); POTASSIUM 3.9 MMOL/L (3.6-5.0); SODIUM 137 MMOL/L (135-145); TOTAL PROTEIN 5.1 GM/DL (6.4-8.2)
[2018-08-24] MEDS: LEVOTHYROXINE 112 MCG (LEVOTHROID) TAB PO SCH (06:26)
[2018-08-24] MEDS: PANTOPRAZOLE 40 MG (PROTONIX) TAB PO SCH (06:26)
[2018-08-24] MEDS: RT-ADVAIR HFA 115/21 MCG PER PUFF IH SCH ×3 (07:08→18:45)
[2018-08-24 08:00] VITALS: BP 133/74
[2018-08-24] MEDS ORDERED: NON-FORMULARY MEDICATION 1 EA EA (Aripiprazole 5 MG) PO SCH (09:00)
[2018-08-24] MEDS ORDERED: NON-FORMULARY MEDICATION 1 EA EA (Dexlansoprazole (Dexilant) 60 MG) PO SCH (09:00)
[2018-08-24] MEDS: DULoxetine 30 MG (CYMBALTA) CAP PO SCH ×2 (09:10→21:15)
[2018-08-24] MEDS: FLUTICASONE NASAL SPRAY (FLONASE) 16 GM BTL NS SCH (09:10)
[2018-08-24] MEDS: PREGABALIN 100 MG (LYRICA) CAPSULE PO SCH ×3 (09:10→21:15)
[2018-08-24] MEDS: LOSARTAN 100 MG (COZAAR) TABLET PO SCH (09:10)
[2018-08-24] MEDS: ROSUVASTATIN 20 MG (CRESTOR) TABLET PO SCH (09:10)
[2018-08-24 12:00] VITALS: BP 138/71
--- NOTE | 2018-08-24 14:14 | Progress Note (SOAP) ---
Subjective Date Seen by a Provider: Aug 24, 2018 Time Seen by a Provider: 12:35 Subjective/Events-last exam Fwup hypoxia, COPD exacerbation, leg numbness, hyponatremia. C/O pain with urination and low back pain. Objective Exam Vital Signs Date Time Temp Pulse Resp B/P (MAP) Pulse Ox O2 Delivery O2 Flow Rate FiO2 08/24/18 12:00 97.1 114 20 138/71 (93) 96 Nasal Cannula 2.00 08/24/18 11:17 92 Room Air 08/24/18 08:00 98.1 98 20 133/74 (93) 94 Nasal Cannula 2.00 08/24/18 08:00 93 Nasal Cannula 2.00 08/24/18 07:08 84 Room Air 08/24/18 04:00 96.5 94 20 113/64 (80) 96 Nasal Cannula 2.00 08/24/18 02:51 90 Nasal Cannula 2.00 08/24/18 00:20 96.8 86 18 126/60 (82) 95 Nasal Cannula 2.00 08/23/18 21:52 90 Room Air 08/23/18 20:00 93 Nasal Cannula 2.00 08/23/18 19:58 98.2 103 20 143/65 (91) 93 Nasal Cannula 2.00 08/23/18 18:20 90 Room Air 08/23/18 15:46 93 Nasal Cannula 2.00 08/23/18 15:30 96.0 94 20 106/55 (72) 99 Nasal Cannula 2.00 I & O 08/24/18 07:00 Intake Total 1242 ml Output Total 2200 ml Balance -958 ml Capillary Refill : Less Than 3 Seconds General Appearance: No Apparent Distress Neck: Supple Respiratory: Lungs Clear Cardiovascular: Regular Rate, Rhythm Gastrointestinal: normal bowel sounds, non tender, soft Extremity: Non Tender, No Calf Tenderness, No Pedal Edema Neurologic/Psychiatric: Alert, Oriented x3 Results Lab Laboratory Tests 08/24/18 05:20: White Blood Count 18.2H, Red Blood Count 3.99L, Hemoglobin 11.4L, Hematocrit 35, Mean Corpuscular Volume 89, Mean Corpuscular Hemoglobin 29, Mean Corpuscular Hemoglobin Concent 32, Red Cell Distribution Width 18.0H, Platelet Count 295, Mean Platelet Volume 9.5, Neutrophils (%) (Auto) 94H, Lymphocytes (%) (Auto) 3L, Monocytes (%) (Auto) 2, Eosinophils (%) (Auto) 0, Basophils (%) (Auto) 0, Melodie trophils # (Auto) 17.2H, Lymphocytes # (Auto) 0.6L, Monocytes # (Auto) 0.4, Eosinophils # (Auto) 0.0, Basophils # (Auto) 0.0, Sodium Level 137, Potassium Level 3.9, Chloride Level 100, Carbon Dioxide Level 26, Anion Gap 11, Blood Urea Nitrogen 9, Creatinine 0.77, Estimat Glomerular Filtration Rate > 60, BUN/Creatinine Ratio 12, Glucose Level 154H, Calcium Level 8.8, Corrected Calcium 9.7, Magnesium Level 1.9, Total Bilirubin 0.2, Aspartate Amino Transf (AST/SGOT) 9, Alanine Aminotransferase (ALT/SGPT) 10, Alkaline Phosphatase 107, Total Protein 5.1L, Albumin 2.9L Assessment/Plan Assessment/Plan Assess & Plan/Chief Complaint 1. Acute Exacerbation of COPD--improving so will decrease IV solumedrol dose 2. Hypoxia--improved with O2 3. Hyponatremia--improved, [place] IV fluids and lift fluid restriction and repeat labs in AM 4. Dysuria with Leukocytosis--check UA 5. Leg Numbness/Weakness--up to chair and start PT Clinical Quality Measures Admission Status Admission Dx 1. Acute Hypoxia--improved with oxygen 2. Acute Exacerbation of COPD--SVNs with duoneb, IV solumedrol 3. Acute Hyponatremia--IVFs and monitor DVT/VTE Risk/Contraindication: Risk Factor Score Per Nursin RFS Level Per Nursing on Admit: 4+=Very High GAVIN WAGNER DO Aug 24, 2018 14:14
[2018-08-24] MEDS ORDERED: KETOROLAC 30 MG/ML VIAL IVP NR (14:15)
--- NOTE | 2018-08-24 15:21 | Physical Therapy Evaluation ---
PT Evaluation-General Medical Diagnosis Admission Date Aug 22, 2018 at 18:17 Medical Diagnosis: COPD/hyponatremia Onset Date: Aug 22, 2018 Therapy Diagnosis Therapy Diagnosis: debility Height/Weight Height (Feet): 5 Height (Inches): 4.00 Weight (Pounds): 205 Weight (Ounces): 0.0 Precautions Precautions/Isolations: Fall Prevention, Standard Precautions Referral Physician: Jerry Reason for Referral: Evaluation/Treatment Medical History Pertinent Medical History: COPD, GERD, HTN, Smoking Current History ED secondary to bilateral LE numbness assisted [place] 83% RA Reviewed History: Yes Social History Home: Apartment Current Living Status: Spouse Entry Into Home: Level Entry Prior/Core FIM Prior Level of Function Therapy Code Descriptions/Definitions Functional [place] Measure: 0=Not Assessed/NA 4=Minimal Assistance 1=Total Assistance 5=Supervision or Setup 2=Maximal Assistance 6=Modified [place] 3=Moderate Assistance 7=Complete [place] Therapy Quality Codes: 6 Independent with activity with or without an assistive device 5 Patient requires set up or clean up by helper. Patient completes activity by themselves 4 Supervision or touching assist (CGA). [place] provide cues , steadying assist 3 The helper provides less than half the effort to complete the activity 2 The helper provides more than half the effort to complete the activity 1 Dependent. The helper does all the effort to complete an activity 7 Patient refused to complete or attempt activity 9 The patient did not perform the activity before the current illness or injury 88 Not attempted due to Medical conditions or safety concerns Functional Abilities and Goals: Independent: Patient completed the activities by him/herself, with or without an assistive device, with no assistance from a helper. Needed Some Help: Patient needed partial assistance from another person to complete activities. Dependent: A helper completed the activities for the patient. Unknown: Not Applicable: Bed Mobility: 6 Transfers (B,C,W/C) (FIM): 6 Gait: 6 Indoor Mobility (Ambulation): Independent Prior Devices Use: Walker Prior Device Use: 4WW PT Evaluation-Current Subjective Patient agrees to PT. Objective Patient Orientation: Normal For Age Problem Solving: Good ROM/Strength ROM Lower Extremities bilateral LE WFL Strength Lower Extremities 4/5 bilateral LE Integumentary/Posture Integumentary refer to nursing notes Bowel Incontinence: No Bladder Incontinence: Yes Posture slight trunk flexed posture Neuromuscular (Tone, Coordination, Reflexes) grossly intact Sensory Vision: Functional Hearing: Functional Sensation Right Lower Extremit: Impaired Sensation Left Lower Extremity: Impaired Transfers Therapy Code Descriptions/Definitions Functional [place] Measure: 0=Not Assessed/NA 4=Minimal Assistance 1=Total Assistance 5=Supervision or Setup 2=Maximal Assistance 6=Modified [place] 3=Moderate Assistance 7=Complete [place] Transfers (B, C, W/C) (FIM): 6 Scootin Rollin Supine to/from Sit: 6 Sit to/from Stand: 6 Gait Mode of Locomotion: Walk Anticipated Mode of Locomotion: Walk Gait (FIM): 6 Distance (FIM): 3=150 ft Distance: 275' Gait Level of Assist: 6 Gait Assistive Device: FWW Comments/Gait Description safe and steady gait sequence with FWW Balance Sitting Static: Normal Sitting Dynamic: Normal Standing Static: Normal Standing Dynamic: Normal Assessment/Needs 58 y.o. female, is currently at [facility] with all gross motor skills and does not require skilled therapy intervention. Patient has been instructed to ambulate PRN in hallway with supervision of nursing staff. Rehab Potential: Fair Post Rehab Potential-Barriers: compliance PT Plan Treatment/Plan Treatment Plan: Discontinue PT, goals met Treatment Plan: Other Treatment Duration: Aug 24, 2018 Frequency: 1 time per week Estimated Hrs Per Day: .25 hour per day Patient and/or Family Agrees t: Yes Time/GCodes Time In: 1500 Time Out: 1512 Total Billed Treatment Time: 12 Total Billed Treatment 1 visit EVLowC 12 min PITA COLBY PT Aug 24, 2018 15:21
[2018-08-24 16:26] VITALS: BP 147/77
--- NOTE | 2018-08-24 17:26 | Diagnostic Imaging Report ---
EXAMINATION: Lumbar spine series. INDICATION: Low back pain. COMPARISON: No comparison available. FINDINGS: There is mild dextroscoliosis of the lumbar spine. Lateral view demonstrates slight anterolisthesis of L5 on S1. The vertebral body heights are maintained. Disc space height loss most advanced at L5-S1 appearing mild. There is advanced L5-S1 facet arthropathy and also moderate facet arthropathy at L4-L5. There are no findings to suggest a pars defect. The visualized bones of the pelvis demonstrate no acute process. There are osteoarthritic changes of the SI joints and within both hips. IMPRESSION: 1. Lumbar degenerative disc disease and facet arthropathy most advanced at L5-S1 where there is a slight grade 1 anterolisthesis. 2. SI joint and hip osteoarthritic changes. Dictated by: Dictated on workstation # [id number]
[2018-08-24] MEDS: CALCIUM CARB + VIT D 600 MG (CALCARB + D) TAB PO SCH (17:44)
[2018-08-24] MEDS ORDERED: methylPREDNISolone 125 MG (Solu-MEDROL) VIAL IVP SCH (21:00)
[2018-08-24] MEDS: methylPREDNISolone 40 MG/ML (Solu-MEDROL) VIAL IV SCH (21:15)
[2018-08-25] VITALS: BP 150/80
[2018-08-25] MEDS: CYCLOBENZAPRINE 10 MG (FLEXERIL) TAB PO PRN (00:10)
[2018-08-25] MEDS: RT-ALBUTEROL/IPRATROPIUM 3 ML (DUONEB) VIAL INH SCH ×6 (02:33→21:49)
[2018-08-25] MEDS: LEVOTHYROXINE 112 MCG (LEVOTHROID) TAB PO SCH (05:10)
[2018-08-25] MEDS: PANTOPRAZOLE 40 MG (PROTONIX) TAB PO SCH (05:10)
[2018-08-25] MEDS: RT-ADVAIR HFA 115/21 MCG PER PUFF IH SCH ×2 (07:11→07:18)
[2018-08-25 08:15] VITALS: BP 153/70
--- NOTE | 2018-08-25 08:38 | NUR ---
CM/CELESTE spoke with the patient. She would like a standard FWW. She has a walker with a seat on it and feels it is too big to navigate in her home well. Information was sent to [facility] to see if her insurance will cover another walker, if has been long enough. Addendum: 08/25/18 at 1002 by TARA ALONSO DME returned call and patient is not eligible for insurance to pay for walker until 2019. That will be the five yrs since coverage of last walker. Updated the patient.
[2018-08-25] MEDS: DULoxetine 30 MG (CYMBALTA) CAP PO SCH ×2 (09:31→20:54)
[2018-08-25] MEDS: FLUTICASONE NASAL SPRAY (FLONASE) 16 GM BTL NS SCH (09:31)
[2018-08-25] MEDS: methylPREDNISolone 40 MG/ML (Solu-MEDROL) VIAL IV SCH (09:31)
[2018-08-25] MEDS: ROSUVASTATIN 20 MG (CRESTOR) TABLET PO SCH (09:31)
[2018-08-25] MEDS: LOSARTAN 100 MG (COZAAR) TABLET PO SCH (09:31)
[2018-08-25] MEDS: PREGABALIN 100 MG (LYRICA) CAPSULE PO SCH ×3 (09:31→20:54)
[2018-08-25] MEDS ORDERED: AZITHROMYCIN INJECTION 500 MG in NS (IVPB) 250 ML IV SCH (13:00)
[2018-08-25 13:53] LABS: BILIRUBIN,URINE NEGATIVE (NEGATIVE); CLARITY,URINE CLEAR; COLOR,URINE YELLOW; GLUCOSE, URINE (UA) NEGATIVE (NEGATIVE); KETONES,URINE NEGATIVE (NEGATIVE); LEUKOCYTE ESTERASE ,URINE 2+ (NEGATIVE); NITRITE,URINE POSITIVE (NEGATIVE); PH,URINE 6 (5-9); PROTEIN,URINE NEGATIVE (NEGATIVE); UROBILINOGEN,URINE NORMAL (NORMAL)
[2018-08-25 14:04] LABS: BACTERIA,URINE FEW /HPF; SQUAMOUS EPITHELIAL CELL,UR RARE /HPF
[2018-08-25] MEDS: cefTRIAXone FOR IV USE 1,000 MG in WATER (STERILE) FOR INJECTION 10 ML IV SCH (15:00)
[2018-08-25 16:13] VITALS: BP_SYST 153; BP_SYST 164; BP_DIAS 70; BP_DIAS 76
[2018-08-25] MEDS: CALCIUM CARB + VIT D 600 MG (CALCARB + D) TAB PO SCH (18:09)
[2018-08-25] MEDS: predniSONE 20 MG TAB PO SCH (20:54)
[2018-08-26 00:18] VITALS: BP 130/95
[2018-08-26] MEDS: RT-ALBUTEROL/IPRATROPIUM 3 ML (DUONEB) VIAL INH SCH ×3 (02:40→09:21)
[2018-08-26] MEDS: LEVOTHYROXINE 112 MCG (LEVOTHROID) TAB PO SCH (05:43)
[2018-08-26] MEDS: PANTOPRAZOLE 40 MG (PROTONIX) TAB PO SCH (05:44)
[2018-08-26 06:07] LABS: BASOPHILS % (AUTO) 0 % (0-10); EOSINOPHILS % (AUTO) 0 % (0-10); HEMATOCRIT 37 % (35-52); HEMOGLOBIN 11.9 G/DL (11.5-16.0); LYMPHOCYTES # (AUTO) 1.3 X 10^3 (1.0-4.0); LYMPHOCYTES % (AUTO) 12 % (12-44); MEAN CORPUSCULAR HEMOGLOBIN 28 PG (25-34); MEAN CORPUSCULAR HGB CONC 32 G/DL (32-36); MEAN CORPUSCULAR VOLUME 87 FL (80-99); MEAN PLATELET VOLUME 9.3 FL (7.4-10.4); MONOCYTES # (AUTO) 0.7 X 10^3 (0.0-1.0); MONOCYTES % (AUTO) 7 % (0-12); NEUTROPHILS # (AUTO) 8.8 X 10^3 (1.8-7.8); NEUTROPHILS % (AUTO) 82 % (42-75); PLATELET COUNT 277 10^3/uL (130-400); RED CELL DISTRIBUTION WIDTH 17.2 % (10.0-14.5); WHITE BLOOD COUNT 10.8 10^3/uL (4.3-11.0)
[2018-08-26 06:27] LABS: BUN/CREATININE RATIO 16; CALCIUM 9.2 MG/DL (8.5-10.1); CARBON DIOXIDE 26 MMOL/L (21-32); CHLORIDE 95 MMOL/L (98-107); CREATININE SERUM 0.73 MG/DL (0.60-1.30); GFR ESTIMATED > 60; GLUCOSE 99 MG/DL (70-105); POTASSIUM 4.7 MMOL/L (3.6-5.0); SODIUM 133 MMOL/L (135-145)
[2018-08-26 08:00] VITALS: BP 114/61
[2018-08-26] MEDS ORDERED: AZITHROMYCIN 250 MG TAB (ZITHROMAX) PO SCH (09:00)
[2018-08-26] MEDS: RT-ADVAIR HFA 115/21 MCG PER PUFF IH SCH (09:21)
[2018-08-26] MEDS: predniSONE 20 MG TAB PO SCH (09:46)
[2018-08-26] MEDS: ROSUVASTATIN 20 MG (CRESTOR) TABLET PO SCH (09:46)
[2018-08-26] MEDS: LOSARTAN 100 MG (COZAAR) TABLET PO SCH (09:46)
[2018-08-26] MEDS: DULoxetine 30 MG (CYMBALTA) CAP PO SCH (09:47)
[2018-08-26] MEDS: PREGABALIN 100 MG (LYRICA) CAPSULE PO SCH ×2 (09:47→14:18)
[2018-08-26] MEDS: FLUTICASONE NASAL SPRAY (FLONASE) 16 GM BTL NS SCH (09:49)
--- NOTE | 2018-08-26 10:58 | NUR ---
PTS SP02 DROPPED TO 83% ON RA AFTER 15MINS. 3LPM APPLIED. SP02 RETURNED TO 94% AFTER 3 MINS. PT QUALIFIES FOR HOME 02 AT 3LPM. Addendum: 08/26/18 at 1059 by HENRRY SOLANO RT Amended: Links added.
--- NOTE | 2018-08-26 12:00 | NUR ---
FLEXERIL 10 PO FOR MUSCLE SPASMS.
[2018-08-26] MEDS: CYCLOBENZAPRINE 10 MG (FLEXERIL) TAB PO PRN (12:02)
[2018-08-26] MEDS ORDERED: AZIT250T12 PO (12:59)
[2018-08-26] MEDS ORDERED: PRD20T PO (12:59)
[2018-08-26] MEDS ORDERED: CEFD300C3 PO (12:59)
--- NOTE | 2018-08-26 13:00 | NUR ---
IV REMOVED. AWAITING O2 DELIVERY. READY FOR DC.
--- NOTE | 2018-08-26 14:16 | NUR ---
RX UNABLE TO BE TRANSMITTED. CALLED TO [facility] PT REQUESTED.
[2018-08-26] MEDS: cefTRIAXone FOR IV USE 1,000 MG in WATER (STERILE) FOR INJECTION 10 ML IV SCH (14:17)
--- NOTE | 2018-08-26 15:04 | NUR ---
CM/SS spoke with patient for discharge planning. patient qualifies for home oxygen and would like to use [facility]. Information faxed to [facility] and they will deliver portable oxygen this day. Choice form in chart.
--- NOTE | 2018-08-26 15:31 | NUR ---
O2 DELIVERED. INSTRUCTIONS GIVEN AND VERBALIZED UNDERSTANDING. DC'D PER WC WITH FRIEND AND BLOOD BANK CALENDAR CONTROL CLERK.
== END 2018-08-26 15:35 | disposition home or self-care (01) | DRG 191 ==
LOC: EDUNIT# 15:52 → ER 15:54 → 4TH 18:17
PROVIDERS: ADMIT Internal Medicine; ATTEND Family Medicine
DX: J44.1 Chronic obstructive pulmonary disease with (acute) exacerbation (principal); R09.02 Hypoxemia; E87.1 Hypo-osmolality and hyponatremia; R30.0 Dysuria; M54.5 Low back pain; I10 Essential (primary) hypertension; F17.210 Nicotine dependence, cigarettes, uncomplicated; E89.0 Postprocedural hypothyroidism; R20.0 Anesthesia of skin; R53.1 Weakness; J30.2 Other seasonal allergic rhinitis; G43.909 Migraine, unspecified, not intractable, without status migrainosus; G62.9 Polyneuropathy, unspecified; K21.9 Gastro-esophageal reflux disease without esophagitis; M19.91 Primary osteoarthritis, unspecified site; F41.9 Anxiety disorder, unspecified; F32.9 Major depressive disorder, single episode, unspecified
CPT/HCPCS: 36415; 51702; 71045; 72110; 80048; 80053; 81000; 83735; 85007; 85025; 85027; 86141; 87077; 87088; 87186; 94640; 94664; 94760; 94761; 96374

== ENCOUNTER → 2018-09-16 | Outpatient (CLI) | payer MEDICARE, MEDICAID ==
[~2018-09-16] MED LIST changes: +ALBU2.5V4 NEB; +ARIP5TAB20 PO; +AZIT250T12 PO; +CALC-901 PO; +CEFD300C3 PO; +PRD20T PO; +PREG100C PO
== END ==
LOC: WOUNDCARE 09:14
PROVIDERS: ATTEND Nurse Practitioner
DX: L89.313 Pressure ulcer of right buttock, stage 3 (principal); L89.323 Pressure ulcer of left buttock, stage 3
CPT/HCPCS: 99214

== ENCOUNTER 2018-09-20 13:32 | Outpatient (RCR) | payer MEDICARE, MEDICAID ==
[~2018-09-20] VITALS: Ht 162.6 cm; Wt 89.4 kg
[~2018-09-20 13:32] MED LIST changes: +CYAN-41 PO; -CYAN10006 PO; -DULO60CA58 PO; +DULO60CA59 PO; -ROSU20TA31 PO; +ROSU20TA32 PO
[2018-09-20 13:40] VITALS: BP 115/60
== END 2018-12-19 | disposition home or self-care (01) ==
LOC: PULM 13:32
PROVIDERS: ATTEND Family Medicine
DX: J44.1 Chronic obstructive pulmonary disease with (acute) exacerbation (principal)
CPT/HCPCS: 99211

== ENCOUNTER → 2018-09-30 | Outpatient (CLI) | payer MEDICARE, MEDICAID ==
[~2018-09-30] MED LIST changes: -CYAN-41 PO; +CYAN10006 PO; +DULO60CA58 PO; -DULO60CA59 PO; +ROSU20TA31 PO; -ROSU20TA32 PO
== END ==
LOC: WOUNDCARE 10:27
PROVIDERS: ATTEND Nurse Practitioner
DX: L89.323 Pressure ulcer of left buttock, stage 3 (principal); L89.313 Pressure ulcer of right buttock, stage 3
CPT/HCPCS: 11042; 87070; 87075; 87077; 87186; 87205

== ENCOUNTER → 2018-10-07 | Outpatient (CLI) | payer MEDICARE, MEDICAID | LOC: WOUNDCARE 10:21 | PROVIDERS: ATTEND Nurse Practitioner | DX: L89.323 Pressure ulcer of left buttock, stage 3 (principal); L89.313 Pressure ulcer of right buttock, stage 3; I96 Gangrene, not elsewhere classified | CPT/HCPCS: 11042 ==

== ENCOUNTER → 2018-10-14 | Outpatient (CLI) | payer MEDICARE, MEDICAID ==
[~2018-10-14] MED LIST changes: +CYAN-41 PO; -CYAN10006 PO; -DULO60CA58 PO; +DULO60CA59 PO; -ROSU20TA31 PO; +ROSU20TA32 PO
== END ==
LOC: WOUNDCARE 10:27
PROVIDERS: ATTEND Nurse Practitioner
DX: L97.313 Non-pressure chronic ulcer of right ankle with necrosis of muscle (principal); L97.323 Non-pressure chronic ulcer of left ankle with necrosis of muscle; I96 Gangrene, not elsewhere classified
CPT/HCPCS: 11042

== ENCOUNTER → 2018-10-21 | Outpatient (CLI) | payer MEDICARE, MEDICAID | LOC: WOUNDCARE 10:26 | PROVIDERS: ATTEND Surgery | DX: L89.323 Pressure ulcer of left buttock, stage 3 (principal); L89.313 Pressure ulcer of right buttock, stage 3; T65.222A Toxic effect of tobacco cigarettes, intentional self-harm, initial encounter; F17.218 Nicotine dependence, cigarettes, with other nicotine-induced disorders | CPT/HCPCS: 99213 ==

== ENCOUNTER → 2018-10-28 | Outpatient (CLI) | payer MEDICARE, MEDICAID | LOC: WOUNDCARE 10:23 | PROVIDERS: ATTEND Nurse Practitioner | DX: L89.323 Pressure ulcer of left buttock, stage 3 (principal); L89.313 Pressure ulcer of right buttock, stage 3; I96 Gangrene, not elsewhere classified; T65.222A Toxic effect of tobacco cigarettes, intentional self-harm, initial encounter; F17.218 Nicotine dependence, cigarettes, with other nicotine-induced disorders | CPT/HCPCS: 99213 ==

== ENCOUNTER → 2018-11-04 | Outpatient (CLI) | payer MEDICARE, MEDICAID | LOC: WOUNDCARE 10:18 | PROVIDERS: ATTEND Nurse Practitioner | DX: L89.313 Pressure ulcer of right buttock, stage 3 (principal); L89.323 Pressure ulcer of left buttock, stage 3; I96 Gangrene, not elsewhere classified; T65.222A Toxic effect of tobacco cigarettes, intentional self-harm, initial encounter; F17.218 Nicotine dependence, cigarettes, with other nicotine-induced disorders | CPT/HCPCS: 11042 ==

== ENCOUNTER → 2018-11-11 | Outpatient (CLI) | payer MEDICARE, MEDICAID | LOC: WOUNDCARE 09:56 | PROVIDERS: ATTEND Nurse Practitioner | DX: L89.323 Pressure ulcer of left buttock, stage 3 (principal); L89.313 Pressure ulcer of right buttock, stage 3; T65.222A Toxic effect of tobacco cigarettes, intentional self-harm, initial encounter; F17.218 Nicotine dependence, cigarettes, with other nicotine-induced disorders; I96 Gangrene, not elsewhere classified | CPT/HCPCS: 11042 ==

== ENCOUNTER → 2018-11-18 | Outpatient (CLI) | payer MEDICARE, MEDICAID | LOC: WOUNDCARE 10:27 | PROVIDERS: ATTEND Nurse Practitioner | DX: L89.323 Pressure ulcer of left buttock, stage 3 (principal); L89.313 Pressure ulcer of right buttock, stage 3; T65.222A Toxic effect of tobacco cigarettes, intentional self-harm, initial encounter; F17.219 Nicotine dependence, cigarettes, with unspecified nicotine-induced disorders; I96 Gangrene, not elsewhere classified | CPT/HCPCS: 11042 ==

== ENCOUNTER → 2018-11-25 | Outpatient (CLI) | payer OTHER, MEDICAID | LOC: WOUNDCARE 10:18 | PROVIDERS: ATTEND Nurse Practitioner | DX: L89.313 Pressure ulcer of right buttock, stage 3 (principal); L89.323 Pressure ulcer of left buttock, stage 3; T65.222A Toxic effect of tobacco cigarettes, intentional self-harm, initial encounter; F17.218 Nicotine dependence, cigarettes, with other nicotine-induced disorders; I96 Gangrene, not elsewhere classified | CPT/HCPCS: 97597 ==

== ENCOUNTER → 2018-12-02 | Outpatient (CLI) | payer OTHER, MEDICAID | LOC: WOUNDCARE 10:29 | PROVIDERS: ATTEND Nurse Practitioner | DX: L89.313 Pressure ulcer of right buttock, stage 3 (principal); L89.323 Pressure ulcer of left buttock, stage 3; T65.222A Toxic effect of tobacco cigarettes, intentional self-harm, initial encounter; F17.218 Nicotine dependence, cigarettes, with other nicotine-induced disorders | CPT/HCPCS: 99212 ==

== ENCOUNTER 2018-12-23 18:21 | Inpatient (IN) | payer OTHER, MEDICAID ==
[~2018-12-23] VITALS: Ht 165 cm; Wt 87.0 kg
[2018-12-23] MEDS ORDERED: NS IV 1000 ML 2,000 ML ONE (18:37)
--- NOTE | 2018-12-23 18:44 | ED Integumentary General ---
General Chief Complaint: Skin/Wound Problems Stated Complaint: BOIL ON R LEG Source: patient Exam Limitations: no limitations History of Present Illness Date Seen by Provider: Dec 23, 2018 Time Seen by Provider: 18:42 Initial Comments To ER with an "boil" on the right leg for about 2-3 days. she tried popping this herself at home twice with minimal drainage. This affects the right labia. No history of this. Timing/Duration: constant, getting worse Severity: moderate Possible Cause: no cause identified Associated Symptoms: denies symptoms Lactate Level 12/23/18 18:35: Lactic Acid Level 2.09*H 12/23/18 20:35: Time of Focused Exam: 19:58 Respiratory: Wheezing Cardiovascular: Tachycardia Skin: normal color, warm/dry Lactic Acid Level Laboratory Tests Test 12/23/18 18:35 12/23/18 20:35 Lactic Acid Level 2.09 MMOL/L (0.50-2.00) *H Within 3hrs of presentation: Admin fluids, Admin 30ml/kg IBW due to BMI>30, Admin ABX, Blood cultures prior to ABX's, Focus exam, Lactate level Allergies and Home Medications Allergies Coded Allergies: No Known Drug Allergies (Unverified , 10/10/10) Home Medications Albuterol Sulfate 2.5 Mg/3 Ml Vial.neb, 2.5 MG NEB EVERY 4-6 HOURS PRN for SHORTNESS OF BREATH, (Reported) Albuterol/Ipratropium 4 Gm Aero, 2 PUFF IH Q4H PRN for WHEEZING, (Reported) Aripiprazole 5 Mg Tablet, 5 MG PO DAILY, (Reported) Azithromycin 250 Mg Tablet, 500 MG PO DAILY Prescribed by: GAVIN EDWARDS on 08/26/18 1259 Budesonide/Formoterol Fumarate 10.2 Gm Hfa.aer.ad, 2 PUFF IH BID, (Reported) Calcium Carbonate/Vitamin D3 1 Each Tablet, 1 TAB PO HS, (Reported) Cefdinir 300 Mg Capsule, 300 MG PO BID Prescribed by: GAVIN EDWARDS on 08/26/18 1259 Cyanocobalamin (Vitamin B-12) 1,000 Mcg Tablet, 1,000 MCG PO HS, (Reported) Cyclobenzaprine HCl 10 Mg Tablet, 10 MG PO TID, (Reported) Dexlansoprazole 60 Mg bp, 60 MG PO DAILY, (Reported) Diclofenac Sodium 100 Gm Gel..gram., 2 GM TP TID PRN for JOINT PAIN, (Reported) Duloxetine HCl 60 Mg Capsule.dr, 60 MG PO BID, (Reported) Fluticasone Propionate 16 Gm Magnolia.susp, 2 SPRAYS NS DAILY, (Reported) Ginkgo Biloba Extract 120 Mg Capsule, 120 MG PO HS, (Reported) Levothyroxine Sodium 112 Mcg Tablet, 112 MCG PO DAILY, (Reported) Losartan Potassium 100 Mg Tablet, 100 MG PO DAILY, (Reported) Prednisone 20 Mg Tab, 20 MG PO BID Prescribed by: GAVIN EDWARDS on 08/26/18 1259 Pregabalin 100 Mg Capsule, 100 MG PO TID, (Reported) Rosuvastatin Calcium 20 Mg Tablet, 20 MG PO DAILY, (Reported) Patient Home Medication List Home Medication List Reviewed: Yes Review of Systems Review of Systems Constitutional: see HPI; No chills, No fever EENTM: see HPI Respiratory: no symptoms reported Cardiovascular: no symptoms reported Genitourinary: no symptoms reported Musculoskeletal: no symptoms reported Skin: no symptoms reported Psychiatric/Neurological: No Symptoms Reported Endocrine: No Symptoms Reported Past Fqnehsn-Vgmtgu-Psacsw Hx Patient Social History Type Used: Cigarettes Recent Foreign Travel: No Contact w/Someone Who Travel: No Recent Hopitalizations: No Immunizations Up To Date Date of Pneumonia Vaccine: Mar 03, 2012 Date of Influenza Vaccine: Jan 11, 2018 Seasonal Allergies Seasonal Allergies: Yes Past Medical History Adenoidectomy, Gallbladder, Hysterectomy, Thyroidectomy, Tonsillectomy, Tubal Ligation Respiratory: Yes COPD Cardiac: Yes Hypertension Neurological: Yes Headaches /Migraines, Neuropathy [employer] History: Hysterectomy Gastrointestinal: Yes Gastroesophageal Reflux Musculoskeletal: Yes Arthritis Psychosocial: Yes Anxiety, Depression Family Medical History Copd 19 FATHER 19 MOTHER Diabetes mellitus 19 MOTHER Hypertension 19 FATHER G8 SISTER Myocardial infarction 19 FATHER 19 MOTHER No Pertinent Family Hx Physical Exam Vital Signs Vital Signs - First Documented 12/23/18 18:37 Temp 37.8 Pulse 122 Resp 20 B/P (MAP) 84/35 (51) Pulse Ox 93 O2 Delivery Nasal Cannula O2 Flow Rate 3.00 Capillary Refill : General Appearance: WD/WN, no apparent distress, other (initial blood pressure on arrival 85/34 on the first reading, consistently in the mid 80s systolic checked twice on 1 arm and a third time on the other arm to verify and exclude a subclavian stenosis. ) HEENT: normal ENT inspection Neck: non-tender, full range of motion Respiratory: no respiratory distress, no accessory muscle use, wheezing Gastrointestinal: normal bowel sounds, non tender Extremities: normal range of motion, non-tender Neurologic/Psychiatric: alert, normal mood/affect, oriented x 3 Skin: normal color, warm/dry Skin Problem Location: other (to the mons pubis there is edema without crepitus or fluctuance. There is induration erythema and a quarter-sized area of ecchymosis to the right labia. The erythema extends anteriorly to the mons pubis and posteriorly to the mid right buttock, inferiorly to the right inguinal fold.) Procedures/Interventions Lumen: triple Central Line Procedure: betadine prep, sterile drapes applied, sterile dressing applied Position: internal jugular (R) Anesthesia: Lidocaine Post Position: sutured, good blood return, position confirmed w/ CXR Progress/Results/Core Measures Results/Orders Lab Results Laboratory Tests Test 12/23/18 18:35 12/23/18 20:35 Range/Units White Blood Count 30.1 *H 4.3-11.0 10^3/uL Red Blood Count 4.54 4.35-5.85 10^6/uL Hemoglobin 14.0 11.5-16.0 G/DL Hematocrit 40 35-52 % Mean Corpuscular Volume 87 80-99 FL Mean Corpuscular Hemoglobin 31 25-34 PG Mean Corpuscular Hemoglobin Concent 35 32-36 G/DL Red Cell Distribution Width 16.4 H 10.0-14.5 % Platelet Count 293 130-400 10^3/uL Mean Platelet Volume 9.9 7.4-10.4 FL Neutrophils (%) (Auto) 84 H 42-75 % Lymphocytes (%) (Auto) 6 L 12-44 % Monocytes (%) (Auto) 10 0-12 % Eosinophils (%) (Auto) 0 0-10 % Basophils (%) (Auto) 0 0-10 % Neutrophils # (Auto) 25.3 H 1.8-7.8 X 10^3 Lymphocytes # (Auto) 1.8 1.0-4.0 X 10^3 Monocytes # (Auto) 2.9 H 0.0-1.0 X 10^3 Eosinophils # (Auto) 0.1 0.0-0.3 10^3/uL Basophils # (Auto) 0.0 0.0-0.1 10^3/uL Neutrophils % (Manual) 82 % Lymphocytes % (Manual) 6 % Monocytes % (Manual) 8 % Eosinophils % (Manual) 1 % Basophils % (Manual) 0 % Band Neutrophils 3 % Toxic Granulation 1+ Anisocytosis SLIGHT Sodium Level 123 *L 135-145 MMOL/L Potassium Level 3.8 3.6-5.0 MMOL/L Chloride Level 89 L 98-107 MMOL/L Carbon Dioxide Level 23 21-32 MMOL/L Anion Gap 11 5-14 MMOL/L Blood Urea Nitrogen 22 H 7-18 MG/DL Creatinine 1.55 H 0.60-1.30 MG/DL Estimat Glomerular Filtration Rate 34 BUN/Creatinine Ratio 14 Glucose Level 121 H 70-105 MG/DL Lactic Acid Level 2.09 *H 0.50-2.00 MMOL/L Calcium Level 8.3 L 8.5-10.1 MG/DL Corrected Calcium 8.7 8.5-10.1 MG/DL Total Bilirubin 1.2 H 0.1-1.0 MG/DL Aspartate Amino Transf (AST/SGOT) 18 5-34 U/L Alanine Aminotransferase (ALT/SGPT) 14 0-55 U/L Alkaline Phosphatase 131 40-136 U/L Total Protein 6.7 6.4-8.2 GM/DL Albumin 3.5 3.2-4.5 GM/DL My Orders Orders - OLIVER GUTIERREZ DEXTRINE MIXER Cbc With Automated Diff (12/23/18 18:35) Comprehensive Metabolic Panel (12/23/18 18:35) Ua Culture If Indicated (12/23/18 18:35) Ed Iv/Invasive Line Start (12/23/18 18:35) Blood Culture (12/23/18 18:35) Lactic Acid Analyzer (12/23/18 18:35) Ns Iv 1000 Ml (Sodium Chloride 0.9%) (12/23/18 18:37) Ns Iv 1000 Ml (Sodium Chloride 0.9%) (12/23/18 18:45) Ns Iv 1000 Ml (Sodium Chloride 0.9%) (12/23/18 18:45) Manual Differential (12/23/18 18:35) Piperacillin Sodium/Tazobactam (Zosyn Vi (12/23/18 19:15) Iohexol Injection (Omnipaque 350 Mg/Ml 1 (12/23/18 19:15) Received Contrast (Hold Metformin- Contr (12/23/18 19:15) Ns (Ivpb) (Sodium Chloride 0.9% Ivpb Bag (12/23/18 19:15) Albuterol/Ipra Inhalation Soln (Duoneb I (12/23/18 19:15) Svn Small Volume Nebulizer (12/23/18 19:09) Albuterol/Ipra Inhalation Soln (Duoneb I (12/23/18 19:16) Ct Abdomen/Pelvis Wo (12/23/18 19:18) Chest 1 View, Ap/Pa Only (12/23/18 20:29) Medications Given in ED Current Medications Medications Dose Ordered Sig/Allan Route Start Time Stop Time Status Last Admin Dose Admin Albuterol/ Ipratropium 3 ml ONCE ONCE INH 12/23/18 19:15 12/23/18 19:17 DC 12/23/18 19:20 3 ML Piperacillin Sod/ Tazobactam Sod 4.5 gm/Sodium Chloride 100 ml @ 200 mls/hr ONCE ONCE IV 12/23/18 19:15 12/23/18 19:44 DC 12/23/18 19:49 200 MLS/HR Vital Signs/I&O 12/23/18 12/23/18 18:37 19:22 Temp 37.8 Pulse 122 Resp 20 B/P (MAP) 84/35 (51) Pulse Ox 93 99 O2 Delivery Nasal Cannula Nasal Cannula O2 Flow Rate 3.00 3.00 Diagnostic Imaging Diagonstic Imaging: CT Comments NAME: TOMI [place] [facility] REC#: [id number] PT STATUS: REG ER : 1960 PHYSICIAN: OLIVER GUTIERREZ APRN ADMIT DATE: 12/23/18/ER Draft Date of Exam:12/23/18 CT ABDOMEN/PELVIS WO PROCEDURE: CT abdomen and pelvis without contrast. TECHNIQUE: Multiple contiguous axial images were obtained through the abdomen and pelvis without the use of intravenous contrast. Auto Exposure Controls were utilized during the CT exam to meet ALARA standards for radiation dose reduction. INDICATION: Abdominal pain. COMPARISON: None. FINDINGS: Cholecystectomy. The liver, pancreas, spleen, adrenals, kidneys, collecting systems and bladder are negative on this noncontrast exam. Hysterectomy. The appendix is not identified and may be surgically absent. No suspicious inflammatory findings in the region of the cecum. No free intraperitoneal air/fluid, lymphadenopathy or evidence of bowel obstruction. No acute osseous findings. IMPRESSION: No acute CT findings in the abdomen or pelvis on this noncontrast exam. Dictated on workstation # [id number] Dict: 12/23/182020 Trans: 12/23/182025 [facility] [id number] Interpreted by: BETTINA RAE MD Electronically signed by: Departure Communication (Admissions) Time/Spoke to Admitting Phy: 20:[address] Edwards, we'll admit to the ICU, consult Dr. Gunn from surgery. Spoke with Dr. Gunn agrees with plan of care. There is no fluctuant draining abscess visualized no free air or subcutaneous air seen on the CT. I spoke with the radiologist directly about this as it was not mentioned on the initial CT report. There is no drainable fluid collection. 1756-2 IVs were started she was given 2 L bolus of IV fluids. Blood pressure alice only to about 96 systolic. She states that she did take her daily dose of losartan 100 mg today. Will proceed with central line placement. Impression Primary Impression: Right labial cellulitis Disposition: ADMITTED INPATIENT Condition: Stable Admissions Decision to Admit Reason: Admit from ER (General) Decision to Admit/Date: Dec 23, 2018 Time/Decision to Admit Time: 19:53 Departure-Patient Inst. Referrals: GAVIN EDWARDS DO (PCP/Family) Primary Care Physician OLIVER GUTIERREZ APRN Dec 23, 2018 18:44
[2018-12-23 18:45] LABS: BASOPHILS % (AUTO) 0 % (0-10); EOSINOPHILS # (AUTO) 0.1 10^3/uL (0.0-0.3); EOSINOPHILS % (AUTO) 0 % (0-10); HEMATOCRIT 40 % (35-52); LYMPHOCYTES # (AUTO) 1.8 X 10^3 (1.0-4.0); LYMPHOCYTES % (AUTO) 6 % (12-44); MEAN CORPUSCULAR HEMOGLOBIN 31 PG (25-34); MEAN CORPUSCULAR HGB CONC 35 G/DL (32-36); MEAN CORPUSCULAR VOLUME 87 FL (80-99); MEAN PLATELET VOLUME 9.9 FL (7.4-10.4); MONOCYTES # (AUTO) 2.9 X 10^3 (0.0-1.0); MONOCYTES % (AUTO) 10 % (0-12); NEUTROPHILS # (AUTO) 25.3 X 10^3 (1.8-7.8); NEUTROPHILS % (AUTO) 84 % (42-75); PLATELET COUNT 293 10^3/uL (130-400); RED CELL DISTRIBUTION WIDTH 16.4 % (10.0-14.5)
[2018-12-23] MEDS ORDERED: NS IV 1000 ML 1,000 ML IV SCH ×2 (18:45)
[2018-12-23 18:53] LABS: WHITE BLOOD COUNT 30.1 10^3/uL (4.3-11.0)
[2018-12-23] MEDS ORDERED: HOLD METFORMIN - RECEIVED CONTRAST 20 ML VIAL IV SCH (19:15)
[2018-12-23] MEDS ORDERED: RT-ALBUTEROL/IPRATROPIUM 3 ML (DUONEB) VIAL INH ONE (19:15)
[2018-12-23] MEDS ORDERED: IOHEXOL 350 MG/ML 100 ML (OMNIPAQUE 350) VIAL IV ONE (19:15)
[2018-12-23] MEDS ORDERED: PIPERACILLIN SODIUM/TAZOBACTAM 4.5 GM in NS (IVPB) 100 ML IV ONE (19:15)
[2018-12-23] MEDS ORDERED: NS 100 ML (IVPB) BAG IV ONE (19:15)
[2018-12-23 19:16] LABS: ALBUMIN 3.5 GM/DL (3.2-4.5); BILIRUBIN,TOTAL 1.2 MG/DL (0.1-1.0); CALCIUM 8.3 MG/DL (8.5-10.1); CREATININE SERUM 1.55 MG/DL (0.60-1.30); POTASSIUM 3.8 MMOL/L (3.6-5.0); TOTAL PROTEIN 6.7 GM/DL (6.4-8.2)
[2018-12-23] MEDS ORDERED: RT-ALBUTEROL/IPRATROPIUM 3 ML (DUONEB) VIAL ONE (19:16)
--- NOTE | 2018-12-23 19:24 | NUR ---
pt to CT to obtain images at this time
[2018-12-23 19:39] LABS: BAND NEUTROPHILS 3 %; BASOPHILS % (MANUAL) 0 %; EOSINOPHILS % (MANUAL) 1 %; LYMPHOCYTES % (MANUAL) 6 %; MONOCYTES % (MANUAL) 8 %; NEUTROPHILS % (MANUAL) 82 %
[2018-12-23 19:41] LABS: ANISOCYTOSIS SLIGHT
[2018-12-23 19:42] LABS: TOXIC GRANULATION/VACUOLAZATIO 1+
--- NOTE | 2018-12-23 20:26 | Diagnostic Imaging Report ---
PROCEDURE: CT abdomen and pelvis without contrast. TECHNIQUE: Multiple contiguous axial images were obtained through the abdomen and pelvis without the use of intravenous contrast. Auto Exposure Controls were utilized during the CT exam to meet ALARA standards for radiation dose reduction. INDICATION: Abdominal pain. COMPARISON: None. FINDINGS: Cholecystectomy. The liver, pancreas, spleen, adrenals, kidneys, collecting systems and bladder are negative on this noncontrast exam. Hysterectomy. The appendix is not identified and may be surgically absent. No suspicious inflammatory findings in the region of the cecum. No free intraperitoneal air/fluid, lymphadenopathy or evidence of bowel obstruction. No acute osseous findings. Nonspecific edema in the subcutaneous tissues overlying the anterior pelvis extending into the perineum, right greater than left. There are no associated fluid collections or subcutaneous gas. IMPRESSION: 1. No acute CT findings in the abdomen or pelvis on this noncontrast exam. 2. Nonspecific subcutaneous edema in the soft tissues overlying the anterior pelvis extending into the perineum. No fluid collections or subcutaneous gas. Dictated by: Dictated on workstation # [id number]
--- NOTE | 2018-12-23 20:28 | NUR ---
tony Styles with Central line placement, consent signed prior to procedure, pt claribel procedure well, vs assessed and stable, pt denies any needs or c/o at this time, will continue to monitor
--- NOTE | 2018-12-23 20:35 | NUR ---
REPEAT LACTIC ACID OBTAINED FROM CENTRAL LINE AND SENT TO LAB
[2018-12-23] MEDS ORDERED: CYAN500T44 PO (20:49)
--- NOTE | 2018-12-23 21:07 | Diagnostic Imaging Report ---
EXAM: CHEST 1 VIEW, AP/PA ONLY INDICATION: Lower extremity swelling. COMPARISON: 08/22/2018. FINDINGS: Normal heart size and pulmonary vascularity. No dense consolidation, pleural effusion or pneumothorax. No acute osseous findings. No significant change. IMPRESSION: 1. No acute cardiopulmonary findings. 2. Unidentified catheter overlying the upper mediastinum may be external to the patient. Dictated by: Dictated on workstation # [id number]
[2018-12-23 21:15] VITALS: BP 90/80
--- NOTE | 2018-12-23 21:20 | NUR ---
pt to ICU room 6 via stretcher, with monitor and chart, report given to Shea RIVAS
[2018-12-23] MEDS ORDERED: NS IV 1000 ML 1,000 ML ONE (21:21)
[2018-12-23] MEDS ORDERED: VANCOMYCIN 1000 MG/VIAL ONE (21:23)
[2018-12-23] MEDS ORDERED: NS (IVPB) 250 ML ONE (21:24)
[2018-12-23 22:00] VITALS: BP 106/45
[2018-12-23] MEDS ORDERED: EPINEPHrine 1 MG INJECTION 2 MG in NS (IVPB) 250 ML IV SCH (22:15)
[2018-12-23] MEDS ORDERED: ONDANSETRON 4 MG/2 ML (SDV) Z0FRAN IV PRN (22:15)
[2018-12-23] MEDS ORDERED: NS IV ONE (22:15)
[2018-12-23] MEDS ORDERED: IBUPROFEN 600 MG (MOTRIN) TAB PO PRN (22:15)
[2018-12-23] MEDS ORDERED: ACETAMINOPHEN 325 MG TABLET PO PRN (22:15)
[2018-12-23] MEDS ORDERED: VANCOMYCIN 750 MG/NS 250 ML IVPB IV ONE ×2 (22:30)
[2018-12-23] MEDS: VASOPRESSIN INJECTION 20 UNIT in NORMAL SALINE 100 ML IV SCH (22:57)
[2018-12-23] MEDS: NOREPINEPHRINE 4 MG in NS (IVPB) 250 ML IV SCH (22:57)
[2018-12-23 23:00] VITALS: BP 102/53
[2018-12-23] MEDS: NS IV 1000 ML 1,000 ML IV SCH ×3 (23:22)
[2018-12-24] VITALS (29 sets, daily range): BP systolic 73–126; BP diastolic 42–96
[2018-12-24] MEDS ORDERED: NS (IVPB) 100 ML ONE (01:04)
[2018-12-24] MEDS ORDERED: PIPERACILLIN/TAZO 4.5 GM VIAL (ZOSYN) IV ONE (01:04)
[2018-12-24] MEDS: NS IV 1000 ML 1,000 ML IV SCH ×11 (01:20→22:44)
[2018-12-24] MEDS: PIPERACILLIN/TAZOBACTAM (BULK) 4.5 GM in NS (IVPB) 100 ML IV SCH ×3 (01:21→18:08)
[2018-12-24] MEDS: HYDROcodone/APAP 5 MG/325 MG (LORTAB) TAB PO PRN (03:20)
[2018-12-24 03:29] LABS: BASOPHILS % (AUTO) 0 % (0-10); EOSINOPHILS % (AUTO) 0 % (0-10); HEMATOCRIT 33 % (35-52); HEMOGLOBIN 11.2 G/DL (11.5-16.0); LYMPHOCYTES % (AUTO) 5 % (12-44); MEAN CORPUSCULAR HEMOGLOBIN 30 PG (25-34); MEAN CORPUSCULAR HGB CONC 34 G/DL (32-36); MEAN CORPUSCULAR VOLUME 89 FL (80-99); MEAN PLATELET VOLUME 9.7 FL (7.4-10.4); MONOCYTES # (AUTO) 1.9 X 10^3 (0.0-1.0); MONOCYTES % (AUTO) 9 % (0-12); NEUTROPHILS # (AUTO) 18.7 X 10^3 (1.8-7.8); NEUTROPHILS % (AUTO) 86 % (42-75); PLATELET COUNT 221 10^3/uL (130-400); RED CELL DISTRIBUTION WIDTH 16.3 % (10.0-14.5); WHITE BLOOD COUNT 21.7 10^3/uL (4.3-11.0)
[2018-12-24 03:47] LABS: ALANINE AMINOTRANSFERASE 13 U/L (0-55); ALBUMIN 2.5 GM/DL (3.2-4.5); ALKALINE PHOSPHATASE 90 U/L (40-136); BILIRUBIN,TOTAL 0.9 MG/DL (0.1-1.0); BUN/CREATININE RATIO 16; CARBON DIOXIDE 19 MMOL/L (21-32); CHLORIDE 99 MMOL/L (98-107); CREATININE SERUM 0.88 MG/DL (0.60-1.30); GFR ESTIMATED > 60; GLUCOSE 114 MG/DL (70-105); MAGNESIUM 1.3 MG/DL (1.6-2.4); PHOSPHORUS 2.3 MG/DL (2.3-4.7); POTASSIUM 3.3 MMOL/L (3.6-5.0); SODIUM 127 MMOL/L (135-145); TOTAL PROTEIN 4.9 GM/DL (6.4-8.2)
[2018-12-24] MEDS: POTASSIUM CL 10MEQ/50ML IVPB 50 ML IV SCH ×3 (04:02→06:01)
[2018-12-24] MEDS: KCL 20 MEQ TAB (K-DUR) PO SCH (04:02)
[2018-12-24] MEDS: MAGNESIUM 1 GM/100 ML IVPB 100 ML IV SCH ×3 (04:02→06:01)
[2018-12-24] MEDS: NOREPINEPHRINE 4 MG in NS (IVPB) 250 ML IV SCH ×3 (04:40→20:37)
[2018-12-24] MEDS: VASOPRESSIN INJECTION 20 UNIT in NORMAL SALINE 100 ML IV SCH ×3 (06:36→23:18)
--- NOTE | 2018-12-24 07:50 | Consultation - Surgery ---
KEIKO FLORES,MED STUDENT 12/24/18 0750: History of Present Illness History of Present Illness Patient Consulted On(mimi/time) 12/24/18 07:44 Date Seen by Provider: Dec 24, 2018 Time Seen by Provider: 07:40 History of Present Illness Surgical consult for right labial cellulitis HPI per ED:To ER with an "boil" on the right leg for about 2-3 days. she tried popping this herself at home twice with minimal drainage. This affects the right labia. No history of this. Timing/Duration: constant, getting worse Severity: moderate Possible Cause: no cause identified Associated Symptoms: denies symptoms Patient states she began to notice a "boil" on her right inner leg 3 days ago. She states it has increased in pain and size since then. She states she has boils in her vaginal area previously but has never been hospitalized or had to have them drained prior and they have never been this large. She pushed a safety pin in the area twice and drained blood. She continues to have pain and swelling in the area. No dysuria, fevers, or chills. She complains of shortness of breath but states it is typical for her and no worse than usual. She requires 3L O2 at home Allergies and Home Medications Allergies Coded Allergies: No Known Drug Allergies (Unverified , 10/10/10) Home Medications Albuterol Sulfate 2.5 Mg/3 Ml Vial.neb, 2.5 MG NEB EVERY 4-6 HOURS PRN for SHORTNESS OF BREATH, (Reported) Albuterol/Ipratropium 4 Gm Aero, 2 PUFF IH Q4H PRN for WHEEZING, (Reported) Aripiprazole 5 Mg Tablet, 5 MG PO DAILY, (Reported) Azithromycin 250 Mg Tablet, 500 MG PO DAILY Prescribed by: GAVIN WAGNER on 08/26/18 1259 Budesonide/Formoterol Fumarate 10.2 Gm Hfa.aer.ad, 2 PUFF IH BID, (Reported) Calcium Carbonate/Vitamin D3 1 Each Tablet, 1 TAB PO HS, (Reported) Cefdinir 300 Mg Capsule, 300 MG PO BID Prescribed by: GAVIN WAGNER on 08/26/18 1259 Cyanocobalamin (Vitamin B-12) 1,000 Mcg Tablet, 1,000 MCG PO HS, (Reported) Cyanocobalamin (Vitamin B-12) 500 Mcg Tablet, 500 MCG PO DAILY, (Reported) Cyclobenzaprine HCl 10 Mg Tablet, 10 MG PO TID, (Reported) Dexlansoprazole 60 Mg Cap.dr.bp, 60 MG PO DAILY, (Reported) Diclofenac Sodium 100 Gm Gel..gram., 2 GM TP TID PRN for JOINT PAIN, (Reported) Duloxetine HCl 60 Mg Capsule.dr, 60 MG PO BID, (Reported) Fluticasone Propionate 16 Gm [place].susp, 2 SPRAYS NS DAILY, (Reported) Ginkgo Biloba Extract 120 Mg Capsule, 120 MG PO HS, (Reported) Levothyroxine Sodium 112 Mcg Tablet, 112 MCG PO DAILY, (Reported) Losartan Potassium 100 Mg Tablet, 100 MG PO DAILY, (Reported) Prednisone 20 Mg Tab, 20 MG PO BID Prescribed by: GAVIN WAGNER on 08/26/18 1259 Pregabalin 100 Mg Capsule, 100 MG PO TID, (Reported) Rosuvastatin Calcium 20 Mg Tablet, 20 MG PO DAILY, (Reported) Past Zhlymjm-Mwlstj-Abyyfl Hx Patient Social History Alcohol Use: Denies Use Recreational Drug Use: No Smoking Status: Current Everyday Smoker Cigarettes Per Day: 20 Type Used: Cigarettes 2nd Hand Smoke Exposure: Yes Recent Foreign Travel: No Contact w/Someone Who Travel: No Recent Infectious Disease Expo: No Recent Hopitalizations: No Immunizations Up To Date Tetanus Booster (TDap): Unknown Date of Pneumonia Vaccine: Mar 03, 2012 Date of Influenza Vaccine: Jan 11, 2018 Seasonal Allergies Seasonal Allergies: Yes Surgeries History of Surgeries: Yes (neck, rotator cuff repair) Surgeries: Adenoidectomy, Gallbladder, Hysterectomy, Thyroidectomy, Tonsillectomy, Tubal Ligation Respiratory History of Respiratory Disorde: Yes Respiratory Disorders: COPD (on home O2 at 3L) Cardiovascular History of Cardiac Disorders: Yes Cardiac Disorders: Hypertension Neurological History of Neurological Disord: Yes Neurological Disorders: Headaches /Migraines, Neuropathy Reproductive System : No 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 Gastrointestinal History of Gastrointestinal Di: Yes Gastrointestinal Disorders: Gastroesophageal Reflux Musculoskeletal History of Musculoskeletal Dis: Yes Musculoskeletal Disorders: Arthritis Endocrine History of Endocrine Disorders: Yes HEENT Loss of Vision: Denies Hearing Impairment: Denies Cancer History of Cancer: No Psychosocial History of Psychiatric Problem: Yes Behavioral Health Disorders: Anxiety, Depression Integumentary History of Skin or Integumenta: No Blood Transfusions History of Blood Disorders: No Family Medical History Significant Family History: Heart Disease, Cancer (mother: cervical), COPD, Diabetes (mother and grandmother), Hypertension Family Medial History: Copd 19 FATHER 19 MOTHER Diabetes mellitus 19 MOTHER Hypertension 19 FATHER G8 SISTER Myocardial infarction 19 FATHER 19 MOTHER Review of Systems-General Constitutional: No chills, No fever EENTM: nose congestion (with seasonal allergies); No blurred vision, No throat pain Respiratory: cough (chronic), short of breath Cardiovascular: No chest pain, No edema Gastrointestinal: No constipation; diarrhea, heartburn; No melena, No nausea, No vomiting Genitourinary: No dysuria, No hematuria Musculoskeletal: back pain, joint pain (left shoulder) Skin: No pruritus; other (right labial swelling) Psychiatric/Neurological: Denies Anxiety, Denies Depressed, Denies Headache, Denies Weakness Other no history of easy bleeding Physical Exam-General Problems Physical Exam Vital Signs Vital Signs - First Documented 12/23/18 12/23/18 18:37 23:08 Temp 37.8 Pulse 122 Resp 20 B/P (MAP) 84/35 (51) Pulse Ox 93 O2 Delivery Nasal Cannula O2 Flow Rate 3.00 FiO2 96 Capillary Refill : Less Than 3 Seconds General Appearance: WD/WN, no apparent distress Eyes: Bilateral Eye PERRL, Bilateral Eye EOMI HEENT: PERRL/EOMI, other (mucous membrances moist) Neck: non-tender, supple Respiratory: no respiratory distress, decreased breath sounds, wheezing Cardiovascular: regular rate, rhythm, no murmur Peripheral Pulses: 2+ Radial Pulses (R), 2+ Radial Pulses (L) Gastrointestinal: normal bowel sounds, non tender, soft Genital/Rectal: other (see skin exam) Extremities: no pedal edema, no calf tenderness Neurologic/Psychiatric: alert, oriented x 3 Skin: other (swelling and erythema nothed along right labia and mons pubis that extends to the back and the right groin. small area on right labia of broken skin with small bleeding ) Data Review Labs Laboratory Tests 12/23/18 18:35: White Blood Count 30.1*H, Red Blood Count 4.54, Hemoglobin 14.0, Hematocrit 40, Mean Corpuscular Volume 87, Mean Corpuscular Hemoglobin 31, Mean Corpuscular Hemoglobin Concent 35, Red Cell Distribution Width 16.4H, Platelet Count 293, Mean Platelet Volume 9.9, Neutrophils (%) (Auto) 84H, Lymphocytes (%) (Auto) 6L, Monocytes (%) (Auto) 10, Eosinophils (%) (Auto) 0, Basophils (%) (Auto) 0, Neutrophils # (Auto) 25.3H, Lymphocytes # (Auto) 1.8, Monocytes # (Auto) 2.9H, Eosinophils # (Auto) 0.1, Basophils # (Auto) 0.0, Neutrophils % (Manual) 82, Lymphocytes % (Manual) 6, Monocytes % (Manual) 8, Eosinophils % (Manual) 1, Basophils % (Manual) 0, Band Neutrophils 3, Toxic Granulation 1+, Anisocytosis SLIGHT, Sodium Level 123*L, Potassium Level 3.8, Chloride Level 89L, Carbon Dioxide Level 23, Anion Gap 11, Blood Urea Nitrogen 22H, Creatinine 1.55H, Estimat Glomerular Filtration Rate 34, BUN/Creatinine Ratio 14, Glucose Level 121H, Lactic Acid Level 2.09*H, Calcium Level 8.3L, Corrected Calcium 8.7, Total Bilirubin 1.2H, Aspartate Amino Transf (AST/SGOT) 18, Alanine Aminotransferase (ALT/SGPT) 14, Alkaline Phosphatase 131, Total Protein 6.7, Albumin 3.5 12/23/18 20:35: Lactic Acid Level 0.87 12/24/18 03:20: White Blood Count 21.7H, Red Blood Count 3.70L, Hemoglobin 11.2L, Hematocrit 33L , Mean Corpuscular Volume 89, Mean Corpuscular Hemoglobin 30, Mean Corpuscular Hemoglobin Concent 34, Red Cell Distribution Width 16.3H, Platelet Count 221, Mean Platelet Volume 9.7, Neutrophils (%) (Auto) 86H, Lymphocytes (%) (Auto) 5L, Monocytes (%) (Auto) 9, Eosinophils (%) (Auto) 0, Basophils (%) (Auto) 0, Neutrophils # (Auto) 18.7H, Lymphocytes # (Auto) 1.0, Monocytes # (Auto) 1.9H, Eosinophils # (Auto) 0.0, Basophils # (Auto) 0.0, Sodium Level 127L, Potassium Level 3.3L, Chloride Level 99, Carbon Dioxide Level 19L, Anion Gap 9, Blood Urea Nitrogen 14, Creatinine 0.88, Estimat Glomerular Filtration Rate > 60, BUN/Creatinine Ratio 16, Glucose Level 114H, Calcium Level 7.0L, Corrected Calcium 8.2L, Total Bilirubin 0.9, Aspartate Amino Transf (AST/SGOT) 14, Alanine Aminotransferase (ALT/SGPT) 13, Alkaline Phosphatase 90, Total Protein 4.9L, Albumin 2.5L, Phosphorus Level 2.3, Magnesium Level 1.3L Radiology Abdomen/Pelvis CT: No acute CT findings in the abdomen or pelvis on this noncontrast exam. Nonspecific subcutaneous edema in the soft tissues overlying the anterior pelvis extending into the perineum. No fluid collections or subcutaneous gas. Assessment/Plan Assessment/Plan Assessment/Plan Right Labial Cellulitis continue IVF, IV Abx. Antiemetics and pain control as needed. Will continue to monitor to see if surgical intervention or debridement is needed. Clinical Quality Measures DVT/VTE Risk/Contraindication: Risk Factor Score Per Nursin RFS Level Per Nursing on Admit: 3=High LUCRECIA BELLA DO 12/24/18 1000: History of Present Illness History of Present Illness Time Seen by Provider: 09:23 History of Present Illness Pt states she can't see down there, so she does not know if it is worse. Thinks pain is about the same. Allergies and Home Medications Allergies Coded Allergies: No Known Drug Allergies (Unverified , 10/10/10) Home Medications Albuterol Sulfate 2.5 Mg/3 Ml Vial.neb, 2.5 MG NEB EVERY 4-6 HOURS PRN for SHORTNESS OF BREATH, (Reported) Albuterol/Ipratropium 4 Gm Aero, 2 PUFF IH Q4H PRN for WHEEZING, (Reported) Aripiprazole 5 Mg Tablet, 5 MG PO DAILY, (Reported) Azithromycin 250 Mg Tablet, 500 MG PO DAILY Prescribed by: GAVIN WAGNER on 08/26/18 1259 Budesonide/Formoterol Fumarate 10.2 Gm Hfa.aer.ad, 2 PUFF IH BID, (Reported) Calcium Carbonate/Vitamin D3 1 Each Tablet, 1 TAB PO HS, (Reported) Cefdinir 300 Mg Capsule, 300 MG PO BID Prescribed by: GAVIN WAGNER on 08/26/18 1259 Cyanocobalamin (Vitamin B-12) 1,000 Mcg Tablet, 1,000 MCG PO HS, (Reported) Cyanocobalamin (Vitamin B-12) 500 Mcg Tablet, 500 MCG PO DAILY, (Reported) Cyclobenzaprine HCl 10 Mg Tablet, 10 MG PO TID, (Reported) Dexlansoprazole 60 Mg Cap.bp, 60 MG PO DAILY, (Reported) Diclofenac Sodium 100 Gm Gel..gram., 2 GM TP TID PRN for JOINT PAIN, (Reported) Duloxetine HCl 60 Mg Capsule.dr, 60 MG PO BID, (Reported) Fluticasone Propionate 16 Gm [place].susp, 2 SPRAYS NS DAILY, (Reported) Ginkgo Biloba Extract 120 Mg Capsule, 120 MG PO HS, (Reported) Levothyroxine Sodium 112 Mcg Tablet, 112 MCG PO DAILY, (Reported) Losartan Potassium 100 Mg Tablet, 100 MG PO DAILY, (Reported) Prednisone 20 Mg Tab, 20 MG PO BID Prescribed by: GAVIN WAGNER on 08/26/18 1259 Pregabalin 100 Mg Capsule, 100 MG PO TID, (Reported) Rosuvastatin Calcium 20 Mg Tablet, 20 MG PO DAILY, (Reported) Patient Home Medication List Home Medication List Reviewed: Yes Past Jffysgy-Wqngqc-Naccbn Hx Family Medical History Family Medial History: Copd 19 FATHER 19 MOTHER Diabetes mellitus 19 MOTHER Hypertension 19 FATHER G8 SISTER Myocardial infarction 19 FATHER 19 MOTHER Physical Exam-General Problems Physical Exam Skin: other (swelling and erythema nothed along right labia and mons pubis that extends to the back and the right groin. small area on right labia of broken skin with small bleeding and possible area of necrosis on right gluteal area just below the labia) Assessment/Plan Assessment/Plan Assessment/Plan Pelvic and inguinal cellulitis - covering labia, gluteal cheek, and Mons Pubis Hypotension - improved now CT does not show any gas in soft tissue or fluid collection. Continue IV ABX and will monitor, may still need surgical debridement. The main concern would b e necrotizing fasciitis; I have signed this out to Dr. Rich. Supervisory-Addendum Brief Verification & Attestation Participated in pt care: history, MDM, physical Personally performed: exam, history, MDM Care discussed with: Medical Student Procedures: n/a Verification and Attestation of Medical Student E/M Service A medical student performed and documented this service in my presence. I reviewed and verified all information documented by the medical student and made modifications to such information, when appropriate. I personally performed the physical exam and medical decision making. Lucrecia Bella, Dec 24, 2018,10:01 KEIKO FLORES,MED STUDENT Dec 24, 2018 07:50 LUCRECIA BELLA DO Dec 24, 2018 10:00
[2018-12-24] MEDS: VANCOMYCIN INJECTION 1,250 MG in NS (IVPB) 250 ML IV SCH ×2 (08:03→20:36)
--- NOTE | 2018-12-24 08:44 | Diagnostic Imaging Report ---
EXAMINATION: Portable AP chest at 349h. INDICATION: Dyspnea The heart size is within normal limits and stable when compared to 12/23/2018. The central venous catheter on the right seen previously is again evident and seems unchanged in position with the tip overlying the proximal superior vena cava. The lungs are clear. There is no evidence for failure, pneumonia or for a pleural effusion. The mediastinum is not widened. The osseous structures are intact. IMPRESSION: Stable chest. There has been no adverse change since the prior exam. Dictated by: Dictated on workstation # [id number]
[2018-12-24] MEDS ORDERED: FLU QUADRIvalent (5+ YOA) 2019-2020 (AFLURIA) 0.5 ML IM ONE (11:00)
--- NOTE | 2018-12-24 11:00 | NUR ---
PATIENT DOES NOT HAVE HER MEDICATION LIST HERE WITH HER ANYMORE. I REQUESTED A LIST TO BE FAXED FROM PHARMACY. WHEN I RECEIVE THAT I WILL GO OVER IT WITH THE PATIENT. Addendum: 12/24/18 at [address]13 [address]ON [facility] WHEN I RECEIVED THE FAX FROM PHARMACY [facility] TODAY THE PATIENT HAD ALREADY BEEN TAKEN TO SURGERY. SHE IS NOW IN HER ROOM HOWEVER IS UNABLE TO WAKE UP TO GO OVER HER MEDICATIONS WITH ME IN DETAIL. NURSE HAD A COPY OF THE PATIENTS HOME MED LIST. I COMPARED IT WITH WHAT HAS BEEN FILLED AT PHARMACY. SHE TAKES THE FOLLOWING OTC: B12 500MCG DAILY GINKGO BILOBA 120MG DAILY CALCIUM 1200MG +D DAILY SHE ALSO HAS COMBIVENT AND FLONASE ON HER LIST WHICH I DO NOT SEE FROM PHARMACY RECENTLY BUT I LEFT THEM ON THE MED REC PER HER LIST. PHARMACY FILLED: 12-22-18 ARIPIPRAZOLE 5MG DAILY #30 12-21-18 COMBIVENT RESPIMAT PRN 12-20-18 DULOXETINE 60MG BID #60 12-15-18 LYRICA 100MG TID #90 12-08-18 LEVOTHYROXINE 112MCG DAILY #90 12-06-18 FLEXERIL 10MG TID PRN #90 11-16-18 VOLTAREN GEL PRN 11-04-18 LOSARTAN 100MG DAILY #90 10-22-18 DEXILANT 60MG DAILY #90 09-28-18 ROSUVASTATIN 20MG DAILY #90 08-03-18 ALBUTEROL NEBS 0.083% Q4-6H PRN
[2018-12-24] MEDS ORDERED: LACTATED RINGERS 1,000 ML IV PRN (12:13)
[2018-12-24] MEDS ORDERED: proPOfol 200 MG/20 ML (DIPRIVAN) VIAL IV ONE (12:14)
[2018-12-24] MEDS ORDERED: MIDAZOLAM 2 MG/2 ML (VERSED) VIAL ONE (12:14)
[2018-12-24] MEDS ORDERED: LIDOCAINE PF 2% 5 ML (XYLOCAINE) VIAL ONE (12:14)
[2018-12-24] MEDS ORDERED: fentaNYL INJECTION 100 MCG/2 ML AMP ONE (12:14)
[2018-12-24] MEDS ORDERED: SEVOFLURANE (ULTANE) 15 ML INHAL SOLN ONE (12:14)
[2018-12-24] MEDS ORDERED: ROCURONIUM 10 MG/ML 5 ML SYRINGE IV ONE (12:14)
[2018-12-24] MEDS ORDERED: ONDANSETRON 4 MG/2 ML (SDV) Z0FRAN ONE (12:14)
[2018-12-24] MEDS ORDERED: ONDANSETRON 4 MG/2 ML (SDV) Z0FRAN IV ONE (12:15)
[2018-12-24] MEDS ORDERED: FAMOTIDINE 20MG/2ML IV (PEPCID) IV ONE (12:15)
[2018-12-24] MEDS ORDERED: RT-ALBUTEROL SULF 2.5 MG/3 ML PRE-MIX VIAL INH ONE (12:15)
[2018-12-24] MEDS ORDERED: SUCCINYLCHOLINE INJ 100 MG/5 ML SYR ONE (13:26)
--- NOTE | 2018-12-24 13:38 | Progress Note-Post Operative ---
Post-Operative Progess Note Surgeon (s)/Refining Still Operator (s) Surgeon KELSEY MC DO Refining Still Operator: NA Pre-Operative Diagnosis right pelvic cellulitis abscess Post-Operative Diagnosis necrotic soft tissue/abscess of right mons, labia and buttock Procedure & Operative Findings Date of Procedure 12/24/18 Procedure Performed/Findings Incision and drainage and debridement of right buttock, labia and mons 4x14.5x4 cm Anesthesia Type gen Estimated Blood Loss Estimated blood loss (mL): min Specimens/Packing Specimens Removed culture KELSEY MC DO Dec 24, 2018 13:37
[2018-12-24] MEDS ORDERED: morphine INJ 10 MG/ML 1ML (SYR OR VIAL) ONE (14:07)
[2018-12-24] MEDS ORDERED: morphine INJ 10 MG/ML 1ML (SYR OR VIAL) IVP ONE (14:15)
--- NOTE | 2018-12-24 21:12 | OPERATIVE REPORT ---
DATE OF SERVICE: 12/24/2018 PREOPERATIVE DIAGNOSIS: Right pelvic cellulitis abscess. POSTOPERATIVE DIAGNOSIS: Necrotic soft tissue abscess of the right mons, labia and buttock. PROCEDURE: Incision and drainage and debridement of right buttock, labia, and mons, 4 x 14.5 x 4 cm. SURGEON: Kelsey Rich DO ANESTHESIA: General. ESTIMATED BLOOD LOSS: Minimal. COMPLICATIONS: None. SPECIMENS: Culture. INDICATIONS: The patient is a 58-year-old female admitted for right labial cellulitis. She had worsening of her cellulitis and began having some slight drainage and necrotic appearing skin. The patient was discussed risks and benefits of procedure and concern for necrotizing fasciitis. She understands risks and benefits of procedure and wished to proceed with procedure. Consent was signed in the chart. DESCRIPTION OF PROCEDURE: The patient was taken to the operating suite, placed in lithotomy position, prepped and draped in sterile fashion. Timeout was performed. The right labia, mons and buttock were opened using cautery. Purulent material erupted. The culture was obtained. Lots of necrotic subcutaneous fat present and some necrotic skin. Cautery was used to remove the necrotic skin and subcutaneous tissue with the overall dimensions being 4 x 14.5 x 4 cm. The wound was irrigated with copious amounts of irrigation greater than 3 liters. Hemostasis was achieved. The patient then had the wound packed with Kerlix and 0.25% Dakin. The area was washed and dried and sterile bandage was applied. The patient was taken back to the Intensive Care Unit in critical condition. The patient will need continued to be monitored closely, may need further debridement if this continues to expand. Job ID: [id number] DocumentID: [id number] Dictated Date: 12/24/2018 17:04:53 Sanitation Director Date: 12/24/2018 21:10:40 Dictated By: KELSEY RICH DO
[2018-12-25] VITALS (23 sets, daily range): BP systolic 85–144; BP diastolic 44–96
[2018-12-25] MEDS: NS IV 1000 ML 1,000 ML IV SCH ×7 (01:39→22:26)
[2018-12-25] MEDS: PIPERACILLIN/TAZOBACTAM (BULK) 4.5 GM in NS (IVPB) 100 ML IV SCH ×3 (01:52→18:21)
[2018-12-25] MEDS: NOREPINEPHRINE 4 MG in NS (IVPB) 250 ML IV SCH ×3 (04:14→19:27)
[2018-12-25 04:37] LABS: BASOPHILS % (AUTO) 0 % (0-10); EOSINOPHILS # (AUTO) 0.3 10^3/uL (0.0-0.3); EOSINOPHILS % (AUTO) 2 % (0-10); HEMATOCRIT 34 % (35-52); HEMOGLOBIN 11.3 G/DL (11.5-16.0); LYMPHOCYTES % (AUTO) 6 % (12-44); MEAN CORPUSCULAR HEMOGLOBIN 31 PG (25-34); MEAN CORPUSCULAR HGB CONC 33 G/DL (32-36); MEAN CORPUSCULAR VOLUME 93 FL (80-99); MONOCYTES # (AUTO) 0.8 X 10^3 (0.0-1.0); MONOCYTES % (AUTO) 5 % (0-12); NEUTROPHILS # (AUTO) 15.2 X 10^3 (1.8-7.8); NEUTROPHILS % (AUTO) 87 % (42-75); PLATELET COUNT 257 10^3/uL (130-400); RED CELL DISTRIBUTION WIDTH 16.9 % (10.0-14.5); WHITE BLOOD COUNT 17.4 10^3/uL (4.3-11.0)
[2018-12-25 05:04] LABS: BUN/CREATININE RATIO 7; CALCIUM 7.6 MG/DL (8.5-10.1); CARBON DIOXIDE 21 MMOL/L (21-32); CHLORIDE 109 MMOL/L (98-107); CREATININE SERUM 0.71 MG/DL (0.60-1.30); GFR ESTIMATED > 60; GLUCOSE 121 MG/DL (70-105); MAGNESIUM 2.1 MG/DL (1.6-2.4); PHOSPHORUS 2.4 MG/DL (2.3-4.7); POTASSIUM 3.8 MMOL/L (3.6-5.0); SODIUM 138 MMOL/L (135-145)
[2018-12-25] MEDS ORDERED: TROUGH ORDER-PHARMACY XX ONE (06:00)
--- NOTE | 2018-12-25 07:20 | Diagnostic Imaging Report ---
Indication: Dyspnea. Comparison: 12/24/2018. Discussion: Single portable upright view of the chest was obtained. Stable normal heart size. Right IJ central venous catheter is stable. No new consolidation, pleural fluid, or pneumothorax. No osseous abnormality. Impression: 1. Stable negative chest. Dictated by: Dictated on workstation # [id number]
--- NOTE | 2018-12-25 07:30 | NUR ---
pt noted to be on Levophed at 0.02mcg/kg/min
[2018-12-25] MEDS: POTASSIUM CL 10MEQ/50ML IVPB 50 ML IV SCH (07:43)
[2018-12-25] MEDS: MAGNESIUM 1 GM/100 ML IVPB 100 ML IV SCH (07:43)
[2018-12-25] MEDS: KCL 20 MEQ TAB (K-DUR) PO SCH (07:44)
[2018-12-25] MEDS: VASOPRESSIN INJECTION 20 UNIT in NORMAL SALINE 100 ML IV SCH ×2 (07:45→15:55)
--- NOTE | 2018-12-25 08:04 | History & Physical ---
History of Present Illness History of Present Illness Reason for visit/HPI This is a 58 year old female who presented to the emergency room with redness, pain and swelling to the vaginal and pubic area. She stated that she had what appeared to be a pimple in her pubic area a few days prior and she tried to squeeze it but nothing came out. The area worsened and when she arrived in the emergency room she was found to have a warm indurated area to her entire mons p ubis area and right labia majora. She was also hypotensive and her WBC count was 30,000. It was decided to admit her to the ICU on sepsis protocol and consult surgery. Date of Admission Dec 23, 2018 at 19:44 Date Seen by a Provider: Dec 24, 2018 Time Seen by a Provider: 08:35 I consulted on this patient on 12/25/18 07:59 Attending Physician Pamela Edwards DO Admitting Physician Pamela Edwards DO Consult Allergies and Home Medications Allergies Coded Allergies: No Known Drug Allergies (Unverified , 10/10/10) Home Medications Albuterol Sulfate 2.5 Mg/3 Ml Vial.neb, 2.5 MG NEB Q4H PRN for SHORTNESS OF BREATH, (Reported) Albuterol/Ipratropium 4 Gm Aero, 1 PUFF IH QID PRN for SHORTNESS OF BREATH, (Reported) Aripiprazole 5 Mg Tablet, 5 MG PO DAILY, (Reported) Budesonide/Formoterol Fumarate 10.2 Gm Hfa.aer.ad, 2 PUFF IH BID, (Reported) Calcium Carbonate/Vitamin D3 1 Each Tablet, 1 TAB PO HS, (Reported) Cyanocobalamin (Vitamin B-12) 500 Mcg Tablet, 500 MCG PO DAILY, (Reported) Cyclobenzaprine HCl 10 Mg Tablet, 10 MG PO TID PRN for MUSCLE SPASMS, (Reported) Dexlansoprazole 60 Mg Cap.dr.bp, 60 MG PO DAILY, (Reported) Diclofenac Sodium 100 Gm Gel..gram., 2 GM TP TID PRN for JOINT PAIN, (Reported) Duloxetine HCl 60 Mg Capsule.dr, 60 MG PO BID, (Reported) Fluticasone Propionate 16 Gm Conley.susp, 2 SPRAYS NS DAILY, (Reported) Ginkgo Biloba Extract 120 Mg Capsule, 120 MG PO HS, (Reported) Levothyroxine Sodium 112 Mcg Tablet, 112 MCG PO DAILY, (Reported) Losartan Potassium 100 Mg Tablet, 100 MG PO DAILY, (Reported) Pregabalin 100 Mg Capsule, 100 MG PO TID, (Reported) Rosuvastatin Calcium 20 Mg Tablet, 20 MG PO DAILY, (Reported) Patient Home Medication List Home Medication List Reviewed: Yes Past Exwoqqr-Fqacqx-Rirben Hx Past Med/Social Hx: Reviewed Nursing Past Med/Soc Hx Patient Social History Alcohol Use: Denies Use Recreational Drug Use: No Smoking Status: Current Everyday Smoker Cigaretts per day: 20 Type Used: Cigarettes 2nd Hand Smoke Exposure: Yes Recent Foreign Travel: No Contact w/other who traveled: No Recent Hopitalizations: No Recent Infectious Disease Expo: No Immunizations Up To Date Tetanus Booster (TDap): Unknown Date of Pneumonia Vaccine: Mar 03, 2012 Date of Influenza Vaccine: Jan 11, 2018 Seasonal Allergies Seasonal Allergies: Yes Past Medical History Surgeries: Adenoidectomy, Gallbladder, Hysterectomy, Thyroidectomy, Tonsillectomy, Tubal Ligation Respiratory: COPD Cardiac: Hypertension Neurological: Headaches /Migraines, Neuropathy : No Hysterectomy Gastrointestinal: Gastroesophageal Reflux Musculoskeletal: Arthritis Loss of Vision: Denies Hearing Impairment: Denies Psychosocial: Anxiety, Depression History of Blood Disorders: No Family History Copd 19 FATHER 19 MOTHER Diabetes mellitus 19 MOTHER Hypertension 19 FATHER G8 SISTER Myocardial infarction 19 FATHER 19 MOTHER Heart Disease, Cancer (mother: cervical), COPD, Diabetes (mother and grandmother), Hypertension Review of Systems Constitutional: weakness EENTM: No see HPI, No no symptoms reported, No ear discharge, No hearing loss, No ear pain, No blurred vision, No double vision, No eye pain, No tearing, No vision loss, No dental problems, No hoarseness, No mouth pain, No mouth swelling, No epistaxis, No nose congestion, No nose pain, No throat pain, No throat swelling, No other Respiratory: dyspnea on exertion Cardiovascular: No no symptoms reported, No see HPI, No chest pain, No edema, No Hx of Intervention, No palpitations, No syncope, No vascular heart diseas, No other Gastrointestinal: No RUQ, No LUQ, No RLQ, No LLQ, No no symptoms reported, No see HPI, No abdominal pain, No constipation, No diarrhea, No dysphagia, No hematemesis, No heartburn, No jaundice, No loss of appetite, No melena, No nausea, No vomiting, No other Genitourinary: pain (pubic area) Musculoskeletal: back pain Skin: change in color (pubic/labia area red/swollen/tender) Psychiatric/Neurological: Weakness Physical Exam Vital Signs Vital Signs - First Documented 12/23/18 12/23/18 18:37 23:08 Temp 37.8 Pulse 122 Resp 20 B/P (MAP) 84/35 (51) Pulse Ox 93 O2 Delivery Nasal Cannula O2 Flow Rate 3.00 FiO2 96 Capillary Refill : Less Than 3 Seconds Height, Weight, BMI Height: 5'4.00" Weight: 197lbs. 0.0oz. [id number]; 33.05 BMI Method:Stated General Appearance: No Apparent Distress HEENT: Normal ENT Inspection Neck: Supple Respiratory: Lungs Clear Cardiovascular: Regular Rate, Rhythm Gastrointestinal: Normal Bowel Sounds, Non Tender, Soft Rectal: Deferred Genital/Rectal: Other (mons pubis and right labia majora with erythema/warmth/induration) Extremity: Non Tender, No Calf Tenderness, No Pedal Edema Neurologic/Psychiatric: Alert, Oriented x3 Skin: Erythema (to mons pubis/labia major) Comments Laboratory Tests 12/23/18 18:35: White Blood Count 30.1*H, Red Blood Count 4.54, Hemoglobin 14.0, Hematocrit 40, Mean Corpuscular Volume 87, Mean Corpuscular Hemoglobin 31, Mean Corpuscular Hemoglobin Concent 35, Red Cell Distribution Width 16.4H, Platelet Count 293, Mean Platelet Volume 9.9, Neutrophils (%) (Auto) 84H, Lymphocytes (%) (Auto) 6L, Monocytes (%) (Auto) 10, Eosinophils (%) (Auto) 0, Basophils (%) (Auto) 0, Neutrophils # (Auto) 25.3H, Lymphocytes # (Auto) 1.8, Monocytes # (Auto) 2.9H, Eosinophils # (Auto) 0.1, Basophils # (Auto) 0.0, Neutrophils % (Manual) 82, Lymphocytes % (Manual) 6, Monocytes % (Manual) 8, Eosinophils % (Manual) 1, Basophils % (Manual) 0, Band Neutrophils 3, Toxic Granulation 1+, Anisocytosis SLIGHT, Sodium Level 123*L, Potassium Level 3.8, Chloride Level 89L, Carbon Dioxide Level 23, Anion Gap 11, Blood Urea Nitrogen 22H, Creatinine 1.55H, Estimat Glomerular Filtration Rate 34, BUN/Creatinine Ratio 14, Glucose Level 121H, Lactic Acid Level 2.09*H, Calcium Level 8.3L, Corrected Calcium 8.7, Total Bilirubin 1.2H, Aspartate Amino Transf (AST/SGOT) 18, Alanine Aminotransferase (ALT/SGPT) 14, Alkaline Phosphatase 131, Total Protein 6.7, Albumin 3.5 12/23/18 20:35: Lactic Acid Level 0.87 12/24/18 03:20: White Blood Count 21.7H, Red Blood Count 3.70L, Hemoglobin 11.2L, Hematocrit 33L , Mean Corpuscular Volume 89, Mean Corpuscular Hemoglobin 30, Mean Corpuscular Hemoglobin Concent 34, Red Cell Distribution Width 16.3H, Platelet Count 221, Mean Platelet Volume 9.7, Neutrophils (%) (Auto) 86H, Lymphocytes (%) (Auto) 5L, Monocytes (%) (Auto) 9, Eosinophils (%) (Auto) 0, Basophils (%) (Auto) 0, Neutrophils # (Auto) 18.7H, Lymphocytes # (Auto) 1.0, Monocytes # (Auto) 1.9H, Eosinophils # (Auto) 0.0, Basophils # (Auto) 0.0, Sodium Level 127L, Potassium Level 3.3L, Chloride Level 99, Carbon Dioxide Level 19L, Anion Gap 9, Blood Urea Nitrogen 14, Creatinine 0.88, Estimat Glomerular Filtration Rate > 60, BUN/Creatinine Ratio 16, Glucose Level 114H, Calcium Level 7.0L, Corrected Calcium 8.2L, Total Bilirubin 0.9, Aspartate Amino Transf (AST/SGOT) 14, Alanine Aminotransferase (ALT/SGPT) 13, Alkaline Phosphatase 90, Total Protein 4.9L, Albumin 2.5L, Phosphorus Level 2.3, Magnesium Level 1.3L 12/24/18 18:07: Glucometer 118H 12/25/18 04:00: White Blood Count 17.4H, Red Blood Count 3.70L, Hemoglobin 11.3L, Hematocrit 34L , Mean Corpuscular Volume 93, Mean Corpuscular Hemoglobin 31, Mean Corpuscular Hemoglobin Concent 33, Red Cell Distribution Width 16.9H, Platelet Count 257, Mean Platelet Volume 10.0, Neutrophils (%) (Auto) 87H, Lymphocytes (%) (Auto) 6L , Monocytes (%) (Auto) 5, Eosinophils (%) (Auto) 2, Basophils (%) (Auto) 0, Neutrophils # (Auto) 15.2H, Lymphocytes # (Auto) 1.0, Monocytes # (Auto) 0.8, Eosinophils # (Auto) 0.3, Basophils # (Auto) 0.0, Sodium Level 138, Potassium Level 3.8, Chloride Level 109H, Carbon Dioxide Level 21, Anion Gap 8, Blood Urea Nitrogen 5L, Creatinine 0.71, Estimat Glomerular Filtration Rate > 60, BUN/Creatinine Ratio 7, Glucose Level 121H, Calcium Level 7.6L, Phosphorus Level 2.4, Magnesium Level 2.1 12/25/18 07:00: Vancomycin Level Trough 14.8 Microbiology 12/24/18 Gram Stain - Final, Resulted 12/24/18 Anaerobic Culture, Resulted Pending 12/24/18 Surgical Culture, Resulted Pending Assessment/Plan Assessment and Plan 1. Acute Sepsis--to ICU on sepsis protocol, currently on levaphed for hypotension, lovenox for DVT prophylaxis 2. Abscess of mons pubis/right labia majora--IV antibiotics and surgical consult for possible I and D 3. COPD--start SVNS with duoneb and IS 4. GERD--start protonix 5. Hyponatremia/electrolyte abnormalities--hydrate per protocol and treat infection and monitor electrolytes Admission Diagnosis Admission Status: Inpatient Order (span 2 midnights) Reason for Inpatient Admission: septic in ICU and will need surgery for debridement Clinical Quality Measures DVT/VTE Risk/Contraindication: Risk Factor Score Per Nursin RFS Level Per Nursing on Admit: 3=High PAMELA EDWARDS DO Dec 25, 2018 08:04
[2018-12-25] MEDS: VANCOMYCIN INJECTION 1,250 MG in NS (IVPB) 250 ML IV SCH ×2 (08:16→18:56)
[2018-12-25] MEDS: DAKIN'S 1/2 STRENGTH (0.25%) 473 ML BTL TOP SCH (08:17)
[2018-12-25] MEDS ORDERED: DAKIN'S 1/2 STRENGTH (0.25%) 473 ML BTL TOP SCH (09:00)
[2018-12-25] MEDS: DULoxetine 30 MG (CYMBALTA) CAP PO SCH ×2 (09:33→22:05)
[2018-12-25] MEDS: HYDROcodone/APAP 5 MG/325 MG (LORTAB) TAB PO PRN ×2 (09:33→22:33)
[2018-12-25] MEDS: LEVOTHYROXINE 112 MCG (LEVOTHROID) TAB PO SCH (09:33)
[2018-12-25] MEDS: PANTOPRAZOLE 40 MG (PROTONIX) TAB PO SCH (09:33)
[2018-12-25] MEDS: FLUTICASONE NASAL SPRAY (FLONASE) 16 GM BTL NS SCH (09:34)
[2018-12-25] MEDS: ENOXAPARIN 40 MG/0.4 ML (LOVENOX) SYR SC SCH (09:34)
[2018-12-25] MEDS: RT-ALBUTEROL/IPRATROPIUM 3 ML (DUONEB) VIAL INH SCH ×4 (10:07→21:06)
--- NOTE | 2018-12-25 10:37 | Progress Note - Surgery ---
KEIKO FLORES,MED STUDENT 12/25/18 1037: Subjective Date Seen by a Provider: Dec 25, 2018 Time Seen by a Provider: 08:15 Subjective/Events-last exam Patient seen and examined. Nkechi states that the area feels similar to yesterday but possibly less painful at rest. She described the pain as a burning that is a 3-4/10 on a pain scale. She does note some itching along her left groin that is new. She denies any fever or chills. She is unsure if the area has worsened or improved because she cannot visualize it. Review of Systems General: No Chills, No Fatigue HEENT: No Head Aches Pulmonary: Dyspnea (improved), Cough Cardiovascular: No: Chest Pain, Edema Gastrointestinal: No: Nausea, Vomiting, Abdominal Pain, Diarrhea, Constipation Genitourinary: No Dysuria, No Retention Musculoskeletal: shoulder pain (left) Neurological: No: Weakness, Confusion Focused Exam Lactate Level 12/23/18 18:35: Lactic Acid Level 2.09*H 12/23/18 20:35: Lactic Acid Level 0.87 Time of Focused Exam: 19:58 Objective Exam Vital Signs Date Time Temp Pulse Resp B/P (MAP) Pulse Ox O2 Delivery O2 Flow Rate FiO2 12/25/18 10:15 98 Nasal Cannula 4.00 12/25/18 09:00 91 124/58 (80) 99 Nasal Cannula 3.00 12/25/18 07:00 88 34 92/44 (60) 99 Nasal Cannula 3.00 12/25/18 07:00 86 12/25/18 06:00 85 24 108/57 (74) 98 Nasal Cannula 3.00 12/25/18 05:00 81 20 91/49 (63) 96 Nasal Cannula 3.00 12/25/18 04:00 80 21 144/96 (112) 96 Nasal Cannula 3.00 12/25/18 04:00 96 Nasal Cannula 3.00 12/25/18 04:00 36.0 12/25/18 03:00 94 15 85/60 (68) 98 Nasal Cannula 3.00 12/25/18 02:00 77 15 141/78 (99) 95 Nasal Cannula 3.00 12/25/18 01:00 83 12/25/18 01:00 85 16 131/73 (92) 95 Nasal Cannula 3.00 12/25/18 00:00 35.7 12/25/18 00:00 95 Nasal Cannula 3.00 12/25/18 00:00 83 17 125/60 (81) 96 Nasal Cannula 3.00 12/24/18 23:00 83 16 118/56 (76) 97 Nasal Cannula 3.00 12/24/18 22:00 90 21 91/56 (68) 95 Nasal Cannula 3.00 12/24/18 21:00 94 17 103/65 (78) 96 Nasal Cannula 3.00 12/24/18 20:11 [id number] 12/24/18 20:00 96 Nasal Cannula 3.00 12/24/18 20:00 101 18 110/96 (101) 100 Nasal Cannula 3.00 12/24/18 19:45 36.0 12/24/18 19:00 83 22 119/69 (86) 100 Nasal Cannula 3.00 12/24/18 18:54 85 12/24/18 18:00 81 15 125/61 (82) Nasal Cannula 3.00 12/24/18 17:00 86 19 86/47 (60) 92 Nasal Cannula 3.00 12/24/18 16:41 35.94771 12/24/18 16:00 85 12 99/47 (64) Nasal Cannula 3.00 12/24/18 16:00 94 Nasal Cannula 3.00 12/24/18 15:00 86 34 113/64 (80) Nasal Cannula 3.00 12/24/18 14:50 Nasal Cannula 3 12/24/18 14:50 36.6 18 107/52 (70) 93 Nasal Cannula 3 12/24/18 14:40 18 109/50 (69) 93 Nasal Cannula 3 12/24/18 14:36 Nasal Cannula 3 12/24/18 14:32 OxyMask 6 12/24/18 14:30 18 97/75 (82) 97 OxyMask 6 12/24/18 14:20 18 116/72 (87) 97 OxyMask 6 12/24/18 14:20 OxyMask 6 12/24/18 14:10 18 126/50 (75) 99 OxyMask 6 12/24/18 14:05 OxyMask 6 12/24/18 14:00 22 123/70 (87) 99 OxyMask 6 12/24/18 13:52 OxyMask 6 12/24/18 13:52 36.7 24 121/62 (81) 95 OxyMask 6 12/24/18 12:26 81 Nasal Cannula 4.00 12/24/18 12:00 86 22 108/55 (72) Nasal Cannula 3.00 12/24/18 12:00 96 Nasal Cannula 3.00 12/24/18 11:00 87 11 108/68 (81) Nasal Cannula 3.00 I & O 12/25/18 07:00 Intake Total 3910 ml Output Total 4400 ml Balance -490 ml Capillary Refill : Less Than 3 Seconds General Appearance: No Apparent Distress, WD/WN HEENT: PERRL/EOMI, Moist Mucous Membranes Neck: Supple Respiratory: Chest Non Tender, No Accessory Muscle Use, No Respiratory Distress, Wheezing Cardiovascular: Regular Rate, Rhythm, No Murmur Peripheral Pulses: 2+ Radial Pulses (R), 2+ Radial Pulses (L) Gastrointestinal: normal bowel sounds, non tender, soft; No distended, No guarding, No rebound Extremity: No Calf Tenderness, No Pedal Edema Neurologic/Psychiatric: Alert, Oriented x3 Skin: Other (erythema over the mons pubis, right labia, and right buttock similar to exam yesterday,4x14.5x4cm anterior to posterier surgica incision and area of debridement packed and clean) Lymphatic: No Adenopathy Results Lab Laboratory Tests 12/24/18 18:07: Glucometer 118H 12/25/18 04:00: White Blood Count 17.4H, Red Blood Count 3.70L, Hemoglobin 11.3L, Hematocrit 34L , Mean Corpuscular Volume 93, Mean Corpuscular Hemoglobin 31, Mean Corpuscular Hemoglobin Concent 33, Red Cell Distribution Width 16.9H, Platelet Count 257, Mean Platelet Volume 10.0, Neutrophils (%) (Auto) 87H, Lymphocytes (%) (Auto) 6L , Monocytes (%) (Auto) 5, Eosinophils (%) (Auto) 2, Basophils (%) (Auto) 0, Neutrophils # (Auto) 15.2H, Lymphocytes # (Auto) 1.0, Monocytes # (Auto) 0.8, Eosinophils # (Auto) 0.3, Basophils # (Auto) 0.0, Sodium Level 138, Potassium Level 3.8, Chloride Level 109H, Carbon Dioxide Level 21, Anion Gap 8, Blood Urea Nitrogen 5L, Creatinine 0.71, Estimat Glomerular Filtration Rate > 60, BUN/Creatinine Ratio 7, Glucose Level 121H, Calcium Level 7.6L, Phosphorus Level 2.4, Magnesium Level 2.1 12/25/18 07:00: Vancomycin Level Trough 14.8 Microbiology 12/23/18 Blood Culture - Preliminary, Resulted No growth 12/24/18 Gram Stain - Final, Resulted 12/24/18 Anaerobic Culture, Resulted Pending 12/24/18 Surgical Culture - Preliminary, Resulted Staphylococcus aureus Assessment/Plan Assessment/Plan Assessment/Plan Necrotic soft tissue.abscess of Right mons pubis, labia, and buttock Continue IV Abx anf IVF. Pain control as needed. Dakins solution and packing to area daily. Gram stain showed gram + cocci in clusters, other cultures still pending I & D done in OR yesterday, will continue to closely monitor the area for need of continued surgical debridement. Clinical Quality Measures DVT/VTE Risk/Contraindication: Risk Factor Score Per Nursin RFS Level Per Nursing on Admit: 3=High KELSEY RICH D DO 12/25/18 1406: Subjective Subjective/Events-last exam Patient pain slightly better. No worsening of erythema. No significant drainage. Slight different sensation in the left groin. Denies n/v fever sweats chills shortness of breath or chest pain. WBC slightly down. Objective Exam General Appearance: No Apparent Distress HEENT: PERRL/EOMI Neck: Supple Respiratory: Chest Non Tender, No Accessory Muscle Use, No Respiratory Distress Cardiovascular: Regular Rate, Rhythm Gastrointestinal: non tender, soft Extremity: No Calf Tenderness Neurologic/Psychiatric: Alert, Oriented x3 Skin: Other (erythema over the mons pubis, right labia, and right buttock similar to exam yesterday,4x14.5x4cm anterior to posterier surgical incision and area of debridement still with no necrotic tissue) Lymphatic: No Adenopathy Assessment/Plan Assessment/Plan Assessment/Plan mons, right labial and buttock cellulitis and necrotic soft tissue infection s/p i and d debridement continue with antibiotics and close monitoring for may need further surgical intervention patient understands seriousness of infection at this time. Supervisory-Addendum Brief Verification & Attestation Participated in pt care: history, MDM, physical Personally performed: exam, history, MDM, supervision of care Care discussed with: Medical Student Procedures: n/a Results interpretation: Verified all documentation Verification and Attestation of Medical Student E/M Service A medical student performed and documented this service in my presence. I reviewed and verified all information documented by the medical student and made modifications to such information, when appropriate. I personally performed the physical exam and medical decision making. Kelsey Rich, Dec 25, 2018,14:06 KEIKO FLORES MED STUDENT Dec 25, 2018 10:37 KELSEY RICH DO Dec 25, 2018 14:06
--- NOTE | 2018-12-25 16:16 | Progress Note - Hospitalist ---
Subjective HPI/CC On Admission Date Seen by Provider: Dec 25, 2018 Time Seen by Provider: 08:50 boil Subjective/Events-last exam She reports continued groin pain. She denies fevers and chills. She denies chest pain, dyspnea, abdominal pain, nausea, vomiting, diarrhea. Focused Exam Lactate Level 12/23/18 18:35: Lactic Acid Level 2.09*H 12/23/18 20:35: Lactic Acid Level 0.87 Time of Focused Exam: 19:58 Objective Exam Vital Signs Vital Signs Date Time Temp Pulse Resp B/P (MAP) Pulse Ox O2 Delivery O2 Flow Rate FiO2 12/25/18 16:00 90 19 123/69 (87) 99 Nasal Cannula 3.00 12/25/18 12:45 35.8 12/23/18 23:08 96 Capillary Refill : Less Than 3 Seconds General Appearance: No Apparent Distress, WD/WN, Obese, Other (pink hair) HEENT: PERRL/EOMI, Pharynx Normal Neck: Normal Inspection, Supple Respiratory: Lungs Clear, Normal Breath Sounds, No Respiratory Distress Cardiovascular: Regular Rate, Rhythm, No Edema, No Murmur Gastrointestinal: Normal Bowel Sounds, Non Tender, Soft Genital/Rectal: Other (right labial wound with surrounding erythema and tenderness without drainage) Extremity: Normal Inspection, Non Tender, No Pedal Edema Neurologic/Psychiatric: Alert, Oriented x3, No Motor/Sensory Deficits, Normal Mood/Affect Skin: Other (labial lesion) Results/Procedures Lab Laboratory Tests 12/25/18 04:00 Patient resulted labs reviewed. Imaging: Reviewed Imaging Report Assessment/Plan Assessment and Plan Assess & Plan/Chief Complaint Septic shock due to labial abscess -Surgery performed debridement yesterday -WBC improving -Continue Vancomycin and Zosyn -Await culture results -Wound consulted -Remains on low dose Levophed, attempt to wean as BP tolerates Acute kidney injury, resolved Hyponatremia, resolved Hypokalemia, resolved Hypomagnesemia, resolved Diagnosis/Problems Diagnosis/Problems (1) Septic shock Status: Acute (2) Abscess of right genital labia Status: Acute (3) Acute kidney injury Status: Resolved Resolution Date/Time: 12/25/18 @ 16:21 (4) Hyponatremia Status: Resolved Resolution Date/Time: 12/25/18 @ 16:21 (5) Hypokalemia Status: Resolved Resolution Date/Time: 12/25/18 @ 16:21 (6) Hypomagnesemia Status: Resolved Resolution Date/Time: 12/25/18 @ 16:21 Clinical Quality Measures DVT/VTE Risk/Contraindication: Risk Factor Score Per Nursin RFS Level Per Nursing on Admit: 3=High NORAH AMES MD Dec 25, 2018 16:16
--- NOTE | 2018-12-25 16:28 | Anesthesia-General Post-Op ---
General Patient Condition Mental Status/LOC: Same as Preop Cardiovascular: Satisfactory Nausea/Vomiting: Absent Respiratory: Satisfactory Pain: Controlled Complications: Absent Post Op Complications Complications None Follow Up Care/Instructions Patient Instructions None needed. Anesthesia/Patient Condition Patient Condition Patient is doing well, no complaints, stable vital signs, no apparent adverse anesthesia problems. No complications reported per nursing. PEREZ ARCINIEGA CRNA Dec 25, 2018 16:28
[2018-12-25] MEDS: RT-ADVAIR HFA 115/21 MCG PER PUFF IH SCH (18:42)
[2018-12-25] MEDS ORDERED: VANCOMYCIN 750 MG/VIAL IV ONE (18:42)
[2018-12-25] MEDS ORDERED: VANCOMYCIN 500 MG/VIAL IV ONE (18:42)
[2018-12-26] VITALS (23 sets, daily range): BP systolic 109–170; BP diastolic 42–92
[2018-12-26] MEDS: VASOPRESSIN INJECTION 20 UNIT in NORMAL SALINE 100 ML IV SCH ×3 (00:21→11:13)
[2018-12-26] MEDS: RT-ALBUTEROL/IPRATROPIUM 3 ML (DUONEB) VIAL INH SCH ×7 (01:14→22:46)
[2018-12-26] MEDS: NS IV 1000 ML 1,000 ML IV SCH ×4 (02:00→23:34)
[2018-12-26] MEDS: PIPERACILLIN/TAZOBACTAM (BULK) 4.5 GM in NS (IVPB) 100 ML IV SCH ×3 (02:30→17:38)
[2018-12-26] MEDS ORDERED: NS (IVPB) 100 ML ONE (02:32)
[2018-12-26] MEDS ORDERED: PIPERACILLIN/TAZO 4.5 GM VIAL (ZOSYN) IV ONE (02:32)
[2018-12-26] MEDS: NOREPINEPHRINE 4 MG in NS (IVPB) 250 ML IV SCH ×4 (02:45→23:35)
[2018-12-26] MEDS: MAGNESIUM 1 GM/100 ML IVPB 100 ML IV SCH ×3 (02:47→08:57)
[2018-12-26] MEDS: KCL 20 MEQ TAB (K-DUR) PO SCH (02:47)
[2018-12-26] MEDS: POTASSIUM CL 10MEQ/50ML IVPB 50 ML IV SCH (02:47)
[2018-12-26 04:18] LABS: BASOPHILS % (AUTO) 0 % (0-10); EOSINOPHILS # (AUTO) 0.1 10^3/uL (0.0-0.3); EOSINOPHILS % (AUTO) 2 % (0-10); HEMATOCRIT 31 % (35-52); HEMOGLOBIN 10.1 G/DL (11.5-16.0); LYMPHOCYTES # (AUTO) 1.2 X 10^3 (1.0-4.0); LYMPHOCYTES % (AUTO) 13 % (12-44); MEAN CORPUSCULAR HEMOGLOBIN 30 PG (25-34); MEAN CORPUSCULAR HGB CONC 32 G/DL (32-36); MEAN CORPUSCULAR VOLUME 93 FL (80-99); MEAN PLATELET VOLUME 9.9 FL (7.4-10.4); MONOCYTES # (AUTO) 0.4 X 10^3 (0.0-1.0); MONOCYTES % (AUTO) 5 % (0-12); NEUTROPHILS # (AUTO) 7.2 X 10^3 (1.8-7.8); NEUTROPHILS % (AUTO) 80 % (42-75); PLATELET COUNT 259 10^3/uL (130-400); RED CELL DISTRIBUTION WIDTH 17.2 % (10.0-14.5)
[2018-12-26 04:42] LABS: BUN/CREATININE RATIO 6; CALCIUM 7.8 MG/DL (8.5-10.1); CARBON DIOXIDE 22 MMOL/L (21-32); CHLORIDE 108 MMOL/L (98-107); CREATININE SERUM 0.68 MG/DL (0.60-1.30); GFR ESTIMATED > 60; GLUCOSE 84 MG/DL (70-105); MAGNESIUM 1.5 MG/DL (1.6-2.4); PHOSPHORUS 2.4 MG/DL (2.3-4.7); POTASSIUM 3.7 MMOL/L (3.6-5.0); SODIUM 138 MMOL/L (135-145)
[2018-12-26] MEDS: RT-ADVAIR HFA 115/21 MCG PER PUFF IH SCH ×2 (07:13→18:50)
[2018-12-26] MEDS: HYDROcodone/APAP 5 MG/325 MG (LORTAB) TAB PO PRN ×3 (07:27→23:34)
[2018-12-26] MEDS: VANCOMYCIN INJECTION 1,250 MG in NS (IVPB) 250 ML IV SCH ×2 (08:09→20:19)
[2018-12-26] MEDS: ENOXAPARIN 40 MG/0.4 ML (LOVENOX) SYR SC SCH (08:52)
[2018-12-26] MEDS: LEVOTHYROXINE 112 MCG (LEVOTHROID) TAB PO SCH (08:52)
[2018-12-26] MEDS: PANTOPRAZOLE 40 MG (PROTONIX) TAB PO SCH (08:54)
[2018-12-26] MEDS: FLUTICASONE NASAL SPRAY (FLONASE) 16 GM BTL NS SCH (08:54)
[2018-12-26] MEDS: DULoxetine 30 MG (CYMBALTA) CAP PO SCH ×2 (08:54→20:20)
[2018-12-26] MEDS: DAKIN'S 1/2 STRENGTH (0.25%) 473 ML BTL TOP SCH (08:55)
--- NOTE | 2018-12-26 10:16 | Progress Note - Surgery ---
Subjective Date Seen by a Provider: Dec 26, 2018 Time Seen by a Provider: 10:11 Subjective/Events-last exam wbc down. area of swelling minimally improved. pain controlled. no new complaints. denies n/v fever sweats chills shortness of breath or chest pain. Focused Exam Lactate Level 12/23/18 18:35: Lactic Acid Level 2.09*H 12/23/18 20:35: Lactic Acid Level 0.87 Time of Focused Exam: 19:58 Objective Exam Vital Signs Date Time Temp Pulse Resp B/P (MAP) Pulse Ox O2 Delivery O2 Flow Rate FiO2 12/26/18 09:00 107 13 151/82 (105) 93 Nasal Cannula 2.00 12/26/18 08:00 96 Nasal Cannula 2.00 12/26/18 08:00 89 34 126/92 (103) 99 Nasal Cannula 2.00 12/26/18 07:20 99 Nasal Cannula 2.00 12/26/18 07:13 99 Nasal Cannula 2.00 12/26/18 07:00 86 12/26/18 07:00 100 22 166/89 (114) 94 Nasal Cannula 2.00 12/26/18 05:26 Nasal Cannula 2.00 12/26/18 05:00 93 18 144/69 (94) 91 Nasal Cannula 1.00 12/26/18 04:00 92 Nasal Cannula 1.00 12/26/18 04:00 89 12 127/67 (87) 93 Nasal Cannula 1.00 12/26/18 03:00 81 15 134/67 (89) 96 Nasal Cannula 1.00 12/26/18 02:00 93 17 91 Nasal Cannula 1.00 12/26/18 01:15 93 Nasal Cannula 1.00 12/26/18 01:00 84 12/26/18 01:00 85 16 121/69 (86) 93 Nasal Cannula 1.00 12/26/18 00:00 93 Nasal Cannula 2.00 12/26/18 00:00 89 22 123/53 (76) 93 Nasal Cannula 1.00 12/25/18 23:00 91 19 118/54 (75) 92 Nasal Cannula 1.00 12/25/18 22:00 92 22 124/57 (79) 95 Nasal Cannula 1.00 12/25/18 21:14 Nasal Cannula 1.00 12/25/18 21:06 99 Nasal Cannula 2.00 12/25/18 21:00 90 20 123/60 (81) 97 Nasal Cannula 2.00 12/25/18 20:04 35.5 88 22 126/74 (91) 99 Nasal Cannula 2.00 12/25/18 20:00 93 Nasal Cannula 2.00 12/25/18 19:00 90 12/25/18 19:00 90 18 131/69 (89) 96 Nasal Cannula 3.00 12/25/18 18:47 100 Nasal Cannula 2.00 12/25/18 18:45 Nasal Cannula 2.00 12/25/18 18:42 99 Nasal Cannula 3.00 12/25/18 18:00 86 26 118/64 (82) 96 Nasal Cannula 3.00 12/25/18 17:00 87 17 119/67 (84) 98 Nasal Cannula 3.00 12/25/18 16:00 96 Nasal Cannula 3.00 12/25/18 16:00 90 19 123/69 (87) 99 Nasal Cannula 3.00 12/25/18 15:00 84 21 85/55 (65) 100 Nasal Cannula 3.00 12/25/18 14:49 99 Nasal Cannula 3.00 12/25/18 14:00 92 29 120/72 (88) 98 Nasal Cannula 3.00 12/25/18 13:00 94 31 132/72 (92) 96 Nasal Cannula 3.00 12/25/18 12:45 35.8 12/25/18 12:31 91 12/25/18 12:00 96 Nasal Cannula 3.00 12/25/18 12:00 93 35 125/68 (87) 98 Nasal Cannula 3.00 12/25/18 12:00 35.8 12/25/18 11:53 35.8 12/25/18 11:00 86 22 109/49 (69) 98 Nasal Cannula 3.00 12/25/18 10:15 98 Nasal Cannula 4.00 I & O 12/26/18 07:00 Intake Total 3295 ml Output Total 3790 ml Balance -495 ml Capillary Refill : Less Than 3 Seconds General Appearance: No Apparent Distress, WD/WN, Obese HEENT: PERRL/EOMI, Pharynx Normal Neck: Normal Inspection, Supple Respiratory: Chest Non Tender, No Accessory Muscle Use, No Respiratory Distress Cardiovascular: Regular Rate, Rhythm Peripheral Pulses: 2+ Radial Pulses (R), 2+ Radial Pulses (L) Gastrointestinal: non tender, soft Extremity: Normal Inspection, Non Tender, No Pedal Edema Neurologic/Psychiatric: Alert, Oriented x3, No Motor/Sensory Deficits, Normal Mood/Affect Skin: Other (mons, right labia and buttock still with induration and open wound still appears clean without necrotic tissue, surrounding cellulitis) Lymphatic: No Adenopathy Results Lab Laboratory Tests 12/26/18 04:00: White Blood Count 9.0, Red Blood Count 3.35L, Hemoglobin 10.1L, Hematocrit 31L, Mean Corpuscular Volume 93, Mean Corpuscular Hemoglobin 30, Mean Corpuscular Hemoglobin Concent 32, Red Cell Distribution Width 17.2H, Platelet Count 259, Mean Platelet Volume 9.9, Neutrophils (%) (Auto) 80H, Lymphocytes (%) (Auto) 13, Monocytes (%) (Auto) 5, Eosinophils (%) (Auto) 2, Basophils (%) (Auto) 0, Neutrophils # (Auto) 7.2, Lymphocytes # (Auto) 1.2, Monocytes # (Auto) 0.4, Eosinophils # (Auto) 0.1, Basophils # (Auto) 0.0, Sodium Level 138, Potassium Level 3.7, Chloride Level 108H, Carbon Dioxide Level 22, Anion Gap 8, Blood Urea Nitrogen 4L, Creatinine 0.68, Estimat Glomerular Filtration Rate > 60, BUN/Creatinine Ratio 6, Glucose Level 84, Calcium Level 7.8L, Phosphorus Level 2.4, Magnesium Level 1.5L Microbiology 12/23/18 Blood Culture - Preliminary, Resulted No growth 12/23/18 MRSA Screen - Final, Complete MRSA not isolated 12/24/18 Gram Stain - Final, Resulted 12/24/18 Anaerobic Culture, Resulted Pending 12/24/18 Surgical Culture - Preliminary, Resulted Staphylococcus aureus Assessment/Plan Assessment/Plan Assessment/Plan mons, right labial and buttock cellulitis and necrotic soft tissue infection s/p i and d debridement continue with antibiotics and close monitoring for may need further surgical intervention patient understands seriousness of infection at this time . Clinical Quality Measures DVT/VTE Risk/Contraindication: Risk Factor Score Per Nursin RFS Level Per Nursing on Admit: 3=High KELSEY MC DO Dec 26, 2018 10:16
--- NOTE | 2018-12-26 11:16 | Diagnostic Imaging Report ---
EXAM: Portable AP chest at 4:01 a.m. INDICATION: Dizziness FINDINGS: The heart size is stable when compared to the prior exam of 12/25/2018. The interstitial densities in both lungs are somewhat more prominent than on the prior exam but this finding may in part be due to differences in film technique. Overall, there has been no significant change. There is no sign of overt failure, pneumonia or of pleural effusion. The mediastinum is not widened. The osseous structures are intact. The central venous catheter on the right seen previously is unchanged in position. IMPRESSION: When compared to the prior study, there does not appear to have been any significant change. No new abnormality has developed. Dictated by: Dictated on workstation # [id number]
--- NOTE | 2018-12-26 11:59 | Progress Note - Hospitalist ---
Subjective HPI/CC On Admission Date Seen by Provider: Dec 26, 2018 Time Seen by Provider: 09:20 boil Subjective/Events-last exam She reports some pain with Dr. Rich's exam this morning. Otherwise she is doing well. She is not having any fevers. She denies chest pain and dyspnea. She denies abdominal pain, nausea, and vomiting. She is constipated. Focused Exam Lactate Level 12/23/18 18:35: Lactic Acid Level 2.09*H 12/23/18 20:35: Lactic Acid Level 0.87 Time of Focused Exam: 19:58 Objective Exam Vital Signs Vital Signs Date Time Temp Pulse Resp B/P (MAP) Pulse Ox O2 Delivery O2 Flow Rate FiO2 12/26/18 11:25 35.6 90 22 141/77 (98) 95 12/26/18 11:00 Nasal Cannula 2.00 12/23/18 23:08 96 Capillary Refill : Less Than 3 Seconds General Appearance: No Apparent Distress, WD/WN, Obese Respiratory: Lungs Clear, Normal Breath Sounds, No Respiratory Distress Cardiovascular: Regular Rate, Rhythm, No Edema, No Murmur Gastrointestinal: Normal Bowel Sounds, Non Tender, Soft Extremity: Normal Inspection, Non Tender, No Pedal Edema Neurologic/Psychiatric: Alert, Oriented x3 Results/Procedures Lab Laboratory Tests 12/26/18 04:00 Patient resulted labs reviewed. Assessment/Plan Assessment and Plan Assess & Plan/Chief Complaint Septic shock due to labial abscess -Surgery following, no plans for repeat debridement at this time -Off pressors, shock resolved -Afebrile, leukocytosis resolved -Continue Vancomycin and Zosyn -Await culture results -Wound consulted Hypothyroidism -Continue levothyroxine Constipation -Begin scheduled docusate and senna -As needed Miralax and bisacodyl Hypomagnesemia -Monitor and replace as needed Acute kidney injury, resolved Hyponatremia, resolved Hypokalemia, resolved Diagnosis/Problems Diagnosis/Problems (1) Septic shock Status: Resolved Resolution Date/Time: 12/26/18 @ 11:56 (2) Abscess of right genital labia Status: Acute (3) Acute kidney injury Status: Resolved Resolution Date/Time: 12/25/18 @ 16:21 (4) Hyponatremia Status: Resolved Resolution Date/Time: 12/25/18 @ 16:21 (5) Hypokalemia Status: Resolved Resolution Date/Time: 12/25/18 @ 16:21 (6) Hypomagnesemia Status: Acute Clinical Quality Measures DVT/VTE Risk/Contraindication: Risk Factor Score Per Nursin RFS Level Per Nursing on Admit: 3=High NORAH AMES MD Dec 26, 2018 11:59
[2018-12-26] MEDS ORDERED: MELATONIN 3 MG TABLET PO PRN (12:00)
[2018-12-26] MEDS ORDERED: POLYETHYLENE GLYCOL 17 GM (MIRALAX) PACK PO PRN (12:00)
[2018-12-26] MEDS ORDERED: ONDANSETRON 4 MG (ZOFRAN) ORAL DISSOLVE TAB PO PRN (12:00)
[2018-12-26] MEDS ORDERED: BISACODYL 5 MG (DULCOLAX) TABLET PO PRN (12:00)
[2018-12-26] MEDS ORDERED: ONDANSETRON 4 MG/2 ML (SDV) Z0FRAN IV PRN (16:15)
[2018-12-26] MEDS: DOCUSATE SODIUM 100 MG (COLACE) CAP PO SCH (20:20)
[2018-12-26] MEDS: SENNA W/DOCUSATE (SENOKOT S) TABLET PO SCH (20:20)
[2018-12-27] VITALS (15 sets, daily range): BP systolic 140–179; BP diastolic 68–106
[2018-12-27] MEDS: VASOPRESSIN INJECTION 20 UNIT in NORMAL SALINE 100 ML IV SCH (00:32)
[2018-12-27] MEDS: PIPERACILLIN/TAZOBACTAM (BULK) 4.5 GM in NS (IVPB) 100 ML IV SCH ×3 (01:10→17:20)
[2018-12-27] MEDS: RT-ALBUTEROL/IPRATROPIUM 3 ML (DUONEB) VIAL INH SCH ×5 (02:45→22:43)
[2018-12-27 03:53] LABS: BASOPHILS % (AUTO) 0 % (0-10); EOSINOPHILS # (AUTO) 0.1 10^3/uL (0.0-0.3); EOSINOPHILS % (AUTO) 1 % (0-10); HEMATOCRIT 32 % (35-52); HEMOGLOBIN 10.5 G/DL (11.5-16.0); LYMPHOCYTES # (AUTO) 1.2 X 10^3 (1.0-4.0); LYMPHOCYTES % (AUTO) 14 % (12-44); MEAN CORPUSCULAR HEMOGLOBIN 30 PG (25-34); MEAN CORPUSCULAR HGB CONC 33 G/DL (32-36); MEAN CORPUSCULAR VOLUME 94 FL (80-99); MEAN PLATELET VOLUME 10.2 FL (7.4-10.4); MONOCYTES # (AUTO) 0.6 X 10^3 (0.0-1.0); MONOCYTES % (AUTO) 7 % (0-12); NEUTROPHILS # (AUTO) 6.4 X 10^3 (1.8-7.8); NEUTROPHILS % (AUTO) 77 % (42-75); PLATELET COUNT 239 10^3/uL (130-400); WHITE BLOOD COUNT 8.3 10^3/uL (4.3-11.0)
[2018-12-27 04:21] LABS: BUN/CREATININE RATIO 4; CALCIUM 8.3 MG/DL (8.5-10.1); CARBON DIOXIDE 21 MMOL/L (21-32); CHLORIDE 109 MMOL/L (98-107); CREATININE SERUM 0.76 MG/DL (0.60-1.30); GFR ESTIMATED > 60; GLUCOSE 80 MG/DL (70-105); MAGNESIUM 1.7 MG/DL (1.6-2.4); PHOSPHORUS 3.7 MG/DL (2.3-4.7); POTASSIUM 3.7 MMOL/L (3.6-5.0); SODIUM 139 MMOL/L (135-145)
[2018-12-27] MEDS: POTASSIUM CL 10MEQ/50ML IVPB 50 ML IV SCH (04:27)
[2018-12-27] MEDS: KCL 20 MEQ TAB (K-DUR) PO SCH (04:27)
[2018-12-27] MEDS: MAGNESIUM 1 GM/100 ML IVPB 100 ML IV SCH ×3 (04:28→06:30)
[2018-12-27] MEDS: NS IV 1000 ML 1,000 ML IV SCH ×3 (05:06→16:58)
[2018-12-27] MEDS: HYDROcodone/APAP 5 MG/325 MG (LORTAB) TAB PO PRN ×3 (05:25→21:03)
[2018-12-27] MEDS: NOREPINEPHRINE 4 MG in NS (IVPB) 250 ML IV SCH (07:38)
[2018-12-27] MEDS: SENNA W/DOCUSATE (SENOKOT S) TABLET PO SCH ×2 (07:51→21:02)
[2018-12-27] MEDS: LEVOTHYROXINE 112 MCG (LEVOTHROID) TAB PO SCH (07:52)
[2018-12-27] MEDS: DULoxetine 30 MG (CYMBALTA) CAP PO SCH ×2 (07:52→21:02)
[2018-12-27] MEDS: ENOXAPARIN 40 MG/0.4 ML (LOVENOX) SYR SC SCH (07:52)
[2018-12-27] MEDS: DOCUSATE SODIUM 100 MG (COLACE) CAP PO SCH ×2 (07:52→21:02)
[2018-12-27] MEDS: FLUTICASONE NASAL SPRAY (FLONASE) 16 GM BTL NS SCH (07:53)
[2018-12-27] MEDS: PANTOPRAZOLE 40 MG (PROTONIX) TAB PO SCH (07:56)
[2018-12-27] MEDS ORDERED: VANCOMYCIN INJECTION 1,250 MG in NS (IVPB) 250 ML IV SCH (08:15)
[2018-12-27] MEDS: DAKIN'S 1/2 STRENGTH (0.25%) 473 ML BTL TOP SCH ×2 (09:55→23:02)
[2018-12-27] MEDS: VANCOMYCIN INJECTION 1,250 MG in NS (IVPB) 250 ML IV SCH ×2 (11:08→21:03)
--- NOTE | 2018-12-27 11:34 | NUR ---
Patient moved to room 418 at this time. Personal belongings sent with patient. Report called to EVELYN Hernandez, to assume care of patient.
--- NOTE | 2018-12-27 11:34 | NUR ---
pt accepted from icu at this time. report taken from agricultural engineering technologist
[2018-12-27] MEDS: RT-ADVAIR HFA 115/21 MCG PER PUFF IH SCH (17:11)
--- NOTE | 2018-12-27 17:17 | Progress Note ---
Subjective Date Seen by a Provider: Dec 27, 2018 Time Seen by a Provider: 08:10 Subjective/Events-last exam Fwup sepsis, pubic abscess, COPD, GERD, mood disorder. 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 Focused Exam Time of Focused Exam: 19:58 Objective Exam Vital Signs Date Time Temp Pulse Resp B/P (MAP) Pulse Ox O2 Delivery O2 Flow Rate FiO2 12/27/18 16:00 36.4 89 18 152/70 (97) 96 Nasal Cannula 3.50 12/27/18 12:00 36.5 92 18 158/73 (101) 93 Nasal Cannula 2.00 2.00 12/27/18 11:30 36.5 92 18 158/73 (101) 93 Nasal Cannula 3.50 12/27/18 11:00 86 15 171/91 (117) 95 Nasal Cannula 2.00 12/27/18 10:45 100 Nasal Cannula 2.00 12/27/18 10:00 5 15 174/100 (124) 96 Nasal Cannula 2.00 12/27/18 09:00 99 26 175/88 (117) 92 Nasal Cannula 2.00 12/27/18 08:00 92 24 156/80 (105) 97 Nasal Cannula 2.00 12/27/18 07:22 97 Nasal Cannula 2.00 12/27/18 07:20 35.8 12/27/18 07:00 98 Nasal Cannula 2.00 12/27/18 07:00 81 12/27/18 07:00 81 19 140/68 (92) 96 Nasal Cannula 2.00 12/27/18 06:00 83 20 153/79 (103) 92 Nasal Cannula 2.00 12/27/18 05:00 84 13 162/86 (111) 94 Nasal Cannula 2.00 12/27/18 04:32 36.4 12/27/18 04:00 86 13 152/77 (102) 98 Nasal Cannula 2.00 12/27/18 04:00 96 Nasal Cannula 2.00 12/27/18 03:00 98 11 Nasal Cannula 2.00 12/27/18 02:45 95 Nasal Cannula 2.00 12/27/18 02:00 84 24 149/83 (105) 92 Nasal Cannula 2.00 12/27/18 01:03 90 12/27/18 01:00 85 24 142/70 (94) 97 Nasal Cannula 2.00 12/27/18 00:00 36.2 12/27/18 00:00 90 15 155/106 (122) 95 Nasal Cannula 2.00 12/26/18 23:37 96 Nasal Cannula 2.00 12/26/18 23:00 96 11 170/81 (110) 94 Nasal Cannula 2.00 12/26/18 22:46 94 Nasal Cannula 2.00 12/26/18 22:00 84 29 150/85 (106) 97 Nasal Cannula 2.00 12/26/18 21:00 87 18 158/81 (106) 97 Nasal Cannula 2.00 12/26/18 20:30 83 9 109/85 (93) 98 Nasal Cannula 2.00 12/26/18 20:00 97 Nasal Cannula 2.00 12/26/18 19:52 36.0 12/26/18 19:02 87 12/26/18 19:00 87 20 151/89 (109) 95 Nasal Cannula 2.00 12/26/18 18:50 96 Nasal Cannula 2.00 12/26/18 18:50 96 Nasal Cannula 2.00 12/26/18 18:00 90 27 154/89 (110) 97 Nasal Cannula 2.00 I & O 12/27/18 07:00 Intake Total 2990 ml Output Total 2350 ml Balance 640 ml Capillary Refill : Less Than 3 Seconds General Appearance: No Apparent Distress Neck: Supple Respiratory: Lungs Clear Cardiovascular: Regular Rate, Rhythm Gastrointestinal: normal bowel sounds, non tender, soft Extremity: Non Tender, No Calf Tenderness, No Pedal Edema Neurologic/Psychiatric: Alert, Oriented x3 Skin: Erythema (still with induration in mons pubis/right labia area) Results Lab Laboratory Tests 12/27/18 03:10: White Blood Count 8.3, Red Blood Count 3.45L, Hemoglobin 10.5L, Hematocrit 32L, Mean Corpuscular Volume 94, Mean Corpuscular Hemoglobin 30, Mean Corpuscular Hemoglobin Concent 33, Red Cell Distribution Width 17.0H, Platelet Count 239, Mean Platelet Volume 10.2, Neutrophils (%) (Auto) 77H, Lymphocytes (%) (Auto) 14, Monocytes (%) (Auto) 7, Eosinophils (%) (Auto) 1, Basophils (%) (Auto) 0, Neutrophils # (Auto) 6.4, Lymphocytes # (Auto) 1.2, Monocytes # (Auto) 0.6, Eosinophils # (Auto) 0.1, Basophils # (Auto) 0.0, Sodium Level 139, Potassium Level 3.7, Chloride Level 109H, Carbon Dioxide Level 21, Anion Gap 9, Blood Urea Nitrogen 3L, Creatinine 0.76, Estimat Glomerular Filtration Rate > 60, BUN/Creatinine Ratio 4, Glucose Level 80, Calcium Level 8.3L, Phosphorus Level 3.7, Magnesium Level 1.7 Microbiology 12/23/18 Blood Culture - Preliminary, Resulted No growth 12/23/18 MRSA Screen - Final, Complete MRSA not isolated 12/24/18 Gram Stain - Final, Resulted 12/24/18 Anaerobic Culture - Preliminary, Resulted No anaerobes isolated 12/24/18 Surgical Culture - Final, Resulted Staphylococcus aureus Assessment/Plan Assessment/Plan Assess & Plan/Chief Complaint 1. Sepsis--improved, WBC count back to normal 2. Pubic Abscess--S/P I and D but still indurated so will await surgery recommendations, continue IV abx 3. COPD--back on SVNS with duoneb 4. GERD--on protonix 5. Mood Disorder--back on home meds Clinical Quality Measures Admission Status Admission Dx 1. Acute Sepsis--to ICU on sepsis protocol, currently on levaphed for hypotension, lovenox for DVT prophylaxis 2. Abscess of mons pubis/right labia majora--IV antibiotics and surgical consult for possible I and D 3. COPD--start SVNS with duoneb and IS 4. GERD--start protonix 5. Hyponatremia/electrolyte abnormalities--hydrate per protocol and treat infection and monitor electrolytes DVT/VTE Risk/Contraindication: Risk Factor Score Per Nursin RFS Level Per Nursing on Admit: 3=High GAVIN WAGNER DO Dec 27, 2018 17:17
--- NOTE | 2018-12-27 18:17 | NUR ---
PT IS RESTING WITH PILLOWS FOR SUPPORT. DR. 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
[2018-12-27] MEDS: ADVAIR HFA 115/21 MCG INHALER 8 GM IH SCH (20:22)
--- NOTE | 2018-12-27 21:29 | Progress Note - Surgery ---
Subjective Date Seen by a Provider: Dec 27, 2018 Time Seen by a Provider: 08:35 Subjective/Events-last exam patient states area feels a little better. Still with swelling and discomfort. Tolerating diet and packing changes. Denies n/v fever sweats chills shortness of breath or chest pain. Focused Exam Time of Focused Exam: 19:58 Objective Exam Vital Signs Date Time Temp Pulse Resp B/P (MAP) Pulse Ox O2 Delivery O2 Flow Rate FiO2 12/27/18 20:22 95 Nasal Cannula 3.00 12/27/18 20:00 36.8 90 20 179/94 (122) 97 Nasal Cannula 3.50 12/27/18 18:24 95 Nasal Cannula 3.00 12/27/18 16:00 36.4 89 18 152/70 (97) 96 Nasal Cannula 3.50 12/27/18 12:00 36.5 92 18 158/73 (101) 93 Nasal Cannula 2.00 2.00 12/27/18 11:30 36.5 92 18 158/73 (101) 93 Nasal Cannula 3.50 12/27/18 11:00 86 15 171/91 (117) 95 Nasal Cannula 2.00 12/27/18 10:45 100 Nasal Cannula 2.00 12/27/18 10:00 5 15 174/100 (124) 96 Nasal Cannula 2.00 12/27/18 09:00 99 26 175/88 (117) 92 Nasal Cannula 2.00 12/27/18 08:00 92 24 156/80 (105) 97 Nasal Cannula 2.00 12/27/18 07:22 97 Nasal Cannula 2.00 12/27/18 07:20 35.8 12/27/18 07:00 98 Nasal Cannula 2.00 12/27/18 07:00 81 12/27/18 07:00 81 19 140/68 (92) 96 Nasal Cannula 2.00 12/27/18 06:00 83 20 153/79 (103) 92 Nasal Cannula 2.00 12/27/18 05:00 84 13 162/86 (111) 94 Nasal Cannula 2.00 12/27/18 04:32 36.4 12/27/18 04:00 86 13 152/77 (102) 98 Nasal Cannula 2.00 12/27/18 04:00 96 Nasal Cannula 2.00 12/27/18 03:00 98 11 Nasal Cannula 2.00 12/27/18 02:45 95 Nasal Cannula 2.00 12/27/18 02:00 84 24 149/83 (105) 92 Nasal Cannula 2.00 12/27/18 01:03 90 12/27/18 01:00 85 24 142/70 (94) 97 Nasal Cannula 2.00 12/27/18 00:00 36.2 12/27/18 00:00 90 15 155/106 (122) 95 Nasal Cannula 2.00 12/26/18 23:37 96 Nasal Cannula 2.00 12/26/18 23:00 96 11 170/81 (110) 94 Nasal Cannula 2.00 12/26/18 22:46 94 Nasal Cannula 2.00 12/26/18 22:00 84 29 150/85 (106) 97 Nasal Cannula 2.00 I & O 12/27/18 07:00 Intake Total 2990 ml Output Total 2350 ml Balance 640 ml Capillary Refill : Less Than 3 Seconds General Appearance: No Apparent Distress HEENT: PERRL/EOMI, Pharynx Normal Neck: Normal Inspection, Supple Respiratory: Chest Non Tender, No Accessory Muscle Use, No Respiratory Distress Cardiovascular: Regular Rate, Rhythm Peripheral Pulses: 2+ Radial Pulses (R), 2+ Radial Pulses (L) Gastrointestinal: non tender, soft, no organomegaly Extremity: Non Tender, No Calf Tenderness, No Pedal Edema Neurologic/Psychiatric: Alert, Oriented x3 Skin: Erythema (still with induration in mons pubis/right labia area, wound still indurated no slough or necrotic appearing tissue) Lymphatic: No Adenopathy Results Lab Laboratory Tests 12/27/18 03:10: White Blood Count 8.3, Red Blood Count 3.45L, Hemoglobin 10.5L, Hematocrit 32L, Mean Corpuscular Volume 94, Mean Corpuscular Hemoglobin 30, Mean Corpuscular Hemoglobin Concent 33, Red Cell Distribution Width 17.0H, Platelet Count 239, Mean Platelet Volume 10.2, Neutrophils (%) (Auto) 77H, Lymphocytes (%) (Auto) 14, Monocytes (%) (Auto) 7, Eosinophils (%) (Auto) 1, Basophils (%) (Auto) 0, Neutrophils # (Auto) 6.4, Lymphocytes # (Auto) 1.2, Monocytes # (Auto) 0.6, Eosinophils # (Auto) 0.1, Basophils # (Auto) 0.0, Sodium Level 139, Potassium Level 3.7, Chloride Level 109H, Carbon Dioxide Level 21, Anion Gap 9, Blood Urea Nitrogen 3L, Creatinine 0.76, Estimat Glomerular Filtration Rate > 60, BUN/Creatinine Ratio 4, Glucose Level 80, Calcium Level 8.3L, Phosphorus Level 3.7, Magnesium Level 1.7 Microbiology 12/23/18 Blood Culture - Preliminary, Resulted No growth 12/23/18 MRSA Screen - Final, Complete MRSA not isolated 12/24/18 Gram Stain - Final, Resulted 12/24/18 Anaerobic Culture - Preliminary, Resulted No anaerobes isolated 12/24/18 Surgical Culture - Final, Resulted Staphylococcus aureus Assessment/Plan Assessment/Plan Assessment/Plan s/p i and d and debridement of right mons,labia and buttock cellulitis right groin continue with abx continue wound care continue close observation, may need further debridement Clinical Quality Measures DVT/VTE Risk/Contraindication: Risk Factor Score Per Nursin RFS Level Per Nursing on Admit: 3=High KELSEY MC DO Dec 27, 2018 21:29
[2018-12-28 00:46] VITALS: BP 173/82
[2018-12-28] MEDS: NS IV 1000 ML 1,000 ML IV SCH ×2 (01:02→08:51)
[2018-12-28] MEDS: PIPERACILLIN/TAZOBACTAM (BULK) 4.5 GM in NS (IVPB) 100 ML IV SCH ×2 (01:04→10:56)
[2018-12-28] MEDS: RT-ALBUTEROL/IPRATROPIUM 3 ML (DUONEB) VIAL INH SCH ×6 (02:40→22:51)
[2018-12-28 04:40] VITALS: BP 151/76
[2018-12-28 05:27] LABS: BASOPHILS % (AUTO) 0 % (0-10); EOSINOPHILS # (AUTO) 0.1 10^3/uL (0.0-0.3); EOSINOPHILS % (AUTO) 2 % (0-10); HEMATOCRIT 31 % (35-52); LYMPHOCYTES # (AUTO) 1.1 X 10^3 (1.0-4.0); LYMPHOCYTES % (AUTO) 17 % (12-44); MEAN CORPUSCULAR HEMOGLOBIN 30 PG (25-34); MEAN CORPUSCULAR HGB CONC 33 G/DL (32-36); MEAN CORPUSCULAR VOLUME 93 FL (80-99); MEAN PLATELET VOLUME 9.9 FL (7.4-10.4); MONOCYTES # (AUTO) 0.7 X 10^3 (0.0-1.0); MONOCYTES % (AUTO) 11 % (0-12); NEUTROPHILS # (AUTO) 4.5 X 10^3 (1.8-7.8); NEUTROPHILS % (AUTO) 70 % (42-75); PLATELET COUNT 281 10^3/uL (130-400); RED CELL DISTRIBUTION WIDTH 16.7 % (10.0-14.5); WHITE BLOOD COUNT 6.4 10^3/uL (4.3-11.0)
[2018-12-28 05:56] LABS: BUN/CREATININE RATIO 4; CALCIUM 8.1 MG/DL (8.5-10.1); CARBON DIOXIDE 22 MMOL/L (21-32); CHLORIDE 109 MMOL/L (98-107); CREATININE SERUM 0.82 MG/DL (0.60-1.30); GFR ESTIMATED > 60; GLUCOSE 86 MG/DL (70-105); MAGNESIUM 1.5 MG/DL (1.6-2.4); PHOSPHORUS 4.1 MG/DL (2.3-4.7); POTASSIUM 3.1 MMOL/L (3.6-5.0); SODIUM 141 MMOL/L (135-145)
[2018-12-28] MEDS: POTASSIUM CL 10MEQ/50ML IVPB 50 ML IV SCH (06:22)
[2018-12-28] MEDS: MAGNESIUM 1 GM/100 ML IVPB 100 ML IV SCH ×3 (06:23→07:39)
[2018-12-28] MEDS: KCL 20 MEQ TAB (K-DUR) PO SCH (06:26)
[2018-12-28] MEDS: ADVAIR HFA 115/21 MCG INHALER 8 GM IH SCH (06:32)
[2018-12-28 08:00] VITALS: BP 170/74
[2018-12-28] MEDS ORDERED: KCL 20 MEQ TAB (K-DUR) PO NR ×2 (08:30→12:45)
[2018-12-28] MEDS: VANCOMYCIN INJECTION 1,250 MG in NS (IVPB) 250 ML IV SCH ×2 (08:52→21:11)
[2018-12-28] MEDS: HYDROcodone/APAP 5 MG/325 MG (LORTAB) TAB PO PRN ×3 (08:52→19:48)
[2018-12-28] MEDS: ENOXAPARIN 40 MG/0.4 ML (LOVENOX) SYR SC SCH (08:54)
[2018-12-28] MEDS ORDERED: LOSARTAN 100 MG (COZAAR) TABLET PO NR (10:15)
[2018-12-28] MEDS: DULoxetine 30 MG (CYMBALTA) CAP PO SCH ×2 (10:48→21:28)
[2018-12-28] MEDS: PANTOPRAZOLE 40 MG (PROTONIX) TAB PO SCH (10:49)
[2018-12-28] MEDS: DOCUSATE SODIUM 100 MG (COLACE) CAP PO SCH ×2 (10:49→21:28)
[2018-12-28] MEDS: SENNA W/DOCUSATE (SENOKOT S) TABLET PO SCH ×2 (10:49→21:28)
[2018-12-28] MEDS: LEVOTHYROXINE 112 MCG (LEVOTHROID) TAB PO SCH (10:49)
[2018-12-28] MEDS: FLUTICASONE NASAL SPRAY (FLONASE) 16 GM BTL NS SCH (11:06)
[2018-12-28] MEDS: DAKIN'S 1/2 STRENGTH (0.25%) 473 ML BTL TOP SCH ×2 (11:06→21:28)
[2018-12-28 12:00] VITALS: BP 175/84
[2018-12-28] MEDS ORDERED: MILK OF MAGNESIA 400 MG/5 ML 30 ML UDC PO NR (12:45)
[2018-12-28] MEDS ORDERED: FUROSEMIDE 40 MG/4 ML INJ (LASIX) IVP NR (12:45)
[2018-12-28] MEDS ORDERED: methylPREDNISolone 125 MG (Solu-MEDROL) VIAL IVP NR (12:45)
--- NOTE | 2018-12-28 13:55 | Physical Therapy Evaluation ---
PT Evaluation-General Medical Diagnosis Admission Date Dec 23, 2018 at 19:44 Medical Diagnosis: right labial cellulitis/sepsis Onset Date: Dec 23, 2018 Therapy Diagnosis Therapy Diagnosis: debility Height/Weight Height (Feet): 5 Height (Inches): 4.00 Weight (Pounds): 197 Weight (Ounces): 0.0 Precautions Precautions/Isolations: Contact Isolation, Standard Precautions Referral Physician: Jerry Reason for Referral: Evaluation/Treatment Medical History Pertinent Medical History: COPD, GERD, HTN, Neuropathy, Smoking Current History ER with "boil" right labial region Reviewed History: Yes Social History Home: Apartment Current Living Status: Alone Entry Into Home: Level Entry Prior Prior Level of Function SCALE: Activities may be completed with or without assistive devices. 7-Qnvmnmhlvy-peczhwl completes the activity by him/herself with no assistance from a helper. 5-Set-up or Clean-up Assistance-helper sets up or cleans up; patient completes activity. [place] assists only prior to or following the activity. 4-Supervision or Touching Assistance-helper provides verbal cues and/or touching/steadying and/or contact guard assistance as patient completes activity. Assistance may be provided throughout the activity or intermittently. 3-Partial/Moderate Assistance-helper does LESS THAN HALF the effort. [place] lifts, holds or supports trunk or limbs, but provides less than half the effort. 2-Substantial/Maximal Assistance-helper does MORE THAN HALF the effort. [place] lifts or holds trunk or limbs and provides more than half the effort. 5-Cddohfbkn-dfmokv does ALL the effort. Patient does none of the effort to complete the activity. Or, the assistance of 2 or more helpers is required for the patient to complete the activity. If activity was not attempted, code reason: 7-Patient Refused. 9-Not Applicable-not attempted and the patient did not perform the activity before the current illness, exacerbation or injury. 10-Not Attempted due to Environmental Limitations-(lack of equipment, weather restraints, etc.). 88-Not Attempted due to Medical Conditions or Safety Concerns. Bed Mobility: 6 Transfers (B,C,W/C): 6 Gait: 6 Indoor Mobility (Ambulation): Independent Stairs: Not Applicalbe Prior Devices Use: Walker PT Evaluation-Current Subjective Patient reports 8/10 genital pain with RN issuing pain medication. Pain Numeric Pain Scale: 8 Location: Soft Tissue Location Body Site: Genital Pain Description: Pressure Objective Patient Orientation: Normal For Age Problem Solving: Fair Attachments: Oxygen (3L), [place] Catheter, IV ROM/Strength ROM Lower Extremities bilateral LE WFL Strength Lower Extremities 4-/5 grossly bilateral LE Integumentary/Posture Integumentary refer to nursing notes Bladder Incontinence: [place]oria Cath Posture WFL Neuromuscular (Tone, Coordination, Reflexes) grossly intact Sensory Vision: Functional Hearing: Functional Sensation Right Lower Extremit: Impaired Sensation Left Lower Extremity: Impaired Transfers Roll Left to Right (QC): 5 Sit to Lying (QC): 5 Lying to Sitting/Side of Bed(Q: 5 Sit to Stand (QC): 5 Chair/Aim-fg-Kylsd Xfer(QC): 5 Gait Does the Patient Walk?: Yes Mode of Locomotion: Walk Anticipated Mode of Locomotion: Walk Distance (FIM): 3=150 ft Walk 10 feet (QC): 5 Walk 50 ft with 2 Turns(QC): 5 Walk 150 ft (QC): 5 Walking 10ft/uneven surface-QC: 10 Gait Assistive Device: FWW Comments/Gait Description WBOS Balance Sitting Static: Normal Sitting Dynamic: Normal Standing Static: Normal Standing Dynamic: Normal Picking up an Object (QC): 6 Assessment/Needs 58 y.o. female, will be seen short term by skilled PT to address functional strength and mobility to improve current LOF to safely return to home at maximum LOF. Rehab Potential: Fair PT Skilled Nursing Goals Skilled Nursing Goals PT Furniture Duster Goals Time Frame: Jan 05, 2019 Sit to Lying (QC): 6 Lying-Sitting on Side/Bed(QC): 6 Sit to Stand (QC): 6 Roll Left to Right (QC): 6 Chair/Mnl-bd-Mijis Xfer(QC): 6 Car Transfer (QC): 6 Does the Patient Walk: Yes Distance: 150' Walk 10 feet (QC): 6 Walk 10ft-Uneven Surface(QC): 6 Walk 50ft with 2 Turns (QC): 6 Walk 150 ft (QC): 6 Gait Assistive Device: FWW Picking up an Object (QC): 6 PT Plan Problem List Problem List: Activity Tolerance, Functional Strength, Gait Treatment/Plan Treatment Plan: Continue Plan of Care Treatment Plan: Bed Mobility, Education, Functional Activity Anton, Functional Strength, Gait, Safety, Therapeutic Exercise, Transfers Treatment Duration: Jan 05, 2019 Frequency: 6 times per week Estimated Hrs Per Day: .25 hour per day Patient and/or Family Agrees t: Yes Time/GCodes Time In: 1310 Time Out: 1333 Total Billed Treatment Time: 23 Total Billed Treatment 1 visit EVModC 23 min PITA COLBY PT Dec 28, 2018 13:55
--- NOTE | 2018-12-28 15:29 | NUR ---
Initial visit: The pt asked me not to approach closely stating "I have infection." She said it has been a painful experience. I honored her request for space and expressed my empathy for her situation. She said she did not need a nurse but was about to take a nap when I entered the room. When I amiably offered to let her rest, she smiled and said she would appreciate that. I arranged the privacy curtain to her liking and closed the door, stating I hoped she could get some healing rest. The Pt is [place].
[2018-12-28 16:24] VITALS: BP 189/90
[2018-12-28] MEDS ORDERED: meTOproloL SUCCINATE 50 MG (TOPROL XL) TAB PO NR (19:30)
--- NOTE | 2018-12-28 19:30 | NUR ---
PATIENT BP IS 199/95 AND PULSE-82. DR WAGNER NOTIFIED OF ELEVATED BP. ORDER RECEIVED FOR METOPROLOL XL 50MG PO ONCE NOW.
--- NOTE | 2018-12-28 19:51 | Progress Note ---
Subjective Date Seen by a Provider: Dec 28, 2018 Time Seen by a Provider: 12:30 Subjective/Events-last exam Fwup sepsis, pubic abscess, COPD, GERD, mood disorder. C/O edema. C/O no BM. Wheezing today. Focused Exam Time of Focused Exam: 19:58 Objective Exam Vital Signs Date Time Temp Pulse Resp B/P (MAP) Pulse Ox O2 Delivery O2 Flow Rate FiO2 12/28/18 16:24 36.2 82 18 189/90 (123) 92 Nasal Cannula 3.00 12/28/18 14:01 94 Nasal Cannula 3.00 12/28/18 12:00 36.4 86 16 175/84 (114) 99 Nasal Cannula 3.00 12/28/18 10:42 92 Nasal Cannula 3.00 12/28/18 08:00 36.6 90 24 170/74 (106) 96 Nasal Cannula 3.00 12/28/18 08:00 Nasal Cannula 3.00 12/28/18 06:33 95 Nasal Cannula 3.00 12/28/18 04:40 36.5 89 20 151/76 (101) 96 Nasal Cannula 3.50 12/28/18 02:40 95 Nasal Cannula 3.00 12/28/18 00:46 37.0 88 18 173/82 (112) 97 Nasal Cannula 3.50 12/27/18 22:44 93 Nasal Cannula 3.00 12/27/18 20:22 95 Nasal Cannula 3.00 12/27/18 20:00 36.8 90 20 179/94 (122) 97 Nasal Cannula 3.50 I & O 12/28/18 07:00 Intake Total 6480 ml Output Total 5500 ml Balance 980 ml Capillary Refill : Less Than 3 Seconds General Appearance: Mild Distress Respiratory: Decreased Breath Sounds, Wheezing Cardiovascular: Regular Rate, Rhythm Gastrointestinal: normal bowel sounds, non tender, soft Extremity: Non Tender, No Calf Tenderness, No Pedal Edema Neurologic/Psychiatric: Alert, Oriented x3, Other (mons pubis area/right labial area stil with induration and erythema) Results Lab Laboratory Tests 12/28/18 04:35: White Blood Count 6.4, Red Blood Count 3.32L, Hemoglobin 10.0L, Hematocrit 31L, Mean Corpuscular Volume 93, Mean Corpuscular Hemoglobin 30, Mean Corpuscular Hemoglobin Concent 33, Red Cell Distribution Width 16.7H, Platelet Count 281, Mean Platelet Volume 9.9, Neutrophils (%) (Auto) 70, Lymphocytes (%) (Auto) 17, Monocytes (%) (Auto) 11, Eosinophils (%) (Auto) 2, Basophils (%) (Auto) 0, Neutrophils # (Auto) 4.5, Lymphocytes # (Auto) 1.1, Monocytes # (Auto) 0.7, Eosinophils # (Auto) 0.1, Basophils # (Auto) 0.0, Sodium Level 141, Potassium Level 3.1L, Chloride Level 109H, Carbon Dioxide Level 22, Anion Gap 10, Blood U yessi Nitrogen 3L, Creatinine 0.82, Estimat Glomerular Filtration Rate > 60, BUN/Creatinine Ratio 4, Glucose Level 86, Calcium Level 8.1L, Phosphorus Level 4.1, Magnesium Level 1.5L Microbiology 12/23/18 Blood Culture - Preliminary, Resulted No growth 12/23/18 MRSA Screen - Final, Complete MRSA not isolated 12/24/18 Gram Stain - Final, Complete 12/24/18 Anaerobic Culture - Final, Complete No anaerobes isolated 12/24/18 Surgical Culture - Final, Complete Staphylococcus aureus Assessment/Plan Assessment/Plan Assess & Plan/Chief Complaint 1. Sepsis--improved, WBC count back to normal 2. Pubic Abscess--S/P I and D but still indurated so will await surgery recommendations, continue IV Vanc as is growing out MRSA 3. COPD--back on SVNS with duoneb, solumedrol today 4. GERD--on protonix 5. Mood Disorder--back on home meds 6. Edema--lasix with potassium x1 dose 7. Constipation--on senokot-s, add MOM dose today 8. Weakness--start PT Clinical Quality Measures Admission Status Admission Dx 1. Acute Sepsis--to ICU on sepsis protocol, currently on levaphed for hypotension, lovenox for DVT prophylaxis 2. Abscess of mons pubis/right labia majora--IV antibiotics and surgical consult for possible I and D 3. COPD--start SVNS with duoneb and IS 4. GERD--start protonix 5. Hyponatremia/electrolyte abnormalities--hydrate per protocol and treat infection and monitor electrolytes DVT/VTE Risk/Contraindication: Risk Factor Score Per Nursin RFS Level Per Nursing on Admit: 3=High GAVIN WAGNER DO Dec 28, 2018 19:51
[2018-12-28 19:55] VITALS: BP 199/95
[2018-12-28] MEDS ORDERED: TROUGH ORDER-PHARMACY XX ONE (20:00)
--- NOTE | 2018-12-28 21:11 | NUR ---
PATIENT HAS A CRITICAL VANCO TROUGH OF 32.3. LIZZIE PHARMACIST AT [facility] IN [place] NOTIFIED OF [facility]. ORDER TO HOLD VANC AND REPORT LEVEL TO [facility] PHARMACIST TOMORROW.
--- NOTE | 2018-12-28 22:24 | Progress Note - Surgery ---
Subjective Date Seen by a Provider: Dec 28, 2018 Time Seen by a Provider: 18:26 Subjective/Events-last exam Less erythema around wound. Mons area still with signficant erythema but feeling better overall. continues on abx. No new complaints. Denies n/v fever sweats chills shortness of breath or chest pain. Focused Exam Time of Focused Exam: 19:58 Objective Exam Vital Signs Date Time Temp Pulse Resp B/P (MAP) Pulse Ox O2 Delivery O2 Flow Rate FiO2 12/28/18 19:55 35.7 82 20 199/95 (129) 94 Nasal Cannula 3.00 12/28/18 16:24 36.2 82 18 189/90 (123) 92 Nasal Cannula 3.00 12/28/18 14:01 94 Nasal Cannula 3.00 12/28/18 12:00 36.4 86 16 175/84 (114) 99 Nasal Cannula 3.00 12/28/18 10:42 92 Nasal Cannula 3.00 12/28/18 08:00 36.6 90 24 170/74 (106) 96 Nasal Cannula 3.00 12/28/18 08:00 Nasal Cannula 3.00 12/28/18 06:33 95 Nasal Cannula 3.00 12/28/18 04:40 36.5 89 20 151/76 (101) 96 Nasal Cannula 3.50 12/28/18 02:40 95 Nasal Cannula 3.00 12/28/18 00:46 37.0 88 18 173/82 (112) 97 Nasal Cannula 3.50 12/27/18 22:44 93 Nasal Cannula 3.00 I & O 12/28/18 06:59 Intake Total 6480 ml Output Total 5500 ml Balance 980 ml Capillary Refill : Less Than 3 Seconds General Appearance: No Apparent Distress HEENT: PERRL/EOMI Neck: Normal Inspection, Supple Respiratory: Chest Non Tender, No Accessory Muscle Use, No Respiratory Distress, Wheezing Cardiovascular: Regular Rate, Rhythm Peripheral Pulses: 2+ Radial Pulses (R), 2+ Radial Pulses (L) Gastrointestinal: non tender, soft Extremity: Non Tender, No Calf Tenderness, No Pedal Edema Neurologic/Psychiatric: Alert, Oriented x3 Skin: Erythema (still with induration in mons pubis/right labia area, wound still indurated no slough or necrotic appearing tissue slowly improving) Lymphatic: No Adenopathy Results Lab Laboratory Tests 12/28/18 04:35: White Blood Count 6.4, Red Blood Count 3.32L, Hemoglobin 10.0L, Hematocrit 31L, Mean Corpuscular Volume 93, Mean Corpuscular Hemoglobin 30, Mean Corpuscular Hemoglobin Concent 33, Red Cell Distribution Width 16.7H, Platelet Count 281, Mean Platelet Volume 9.9, Neutrophils (%) (Auto) 70, Lymphocytes (%) (Auto) 17, Monocytes (%) (Auto) 11, Eosinophils (%) (Auto) 2, Basophils (%) (Auto) 0, N eutrophils # (Auto) 4.5, Lymphocytes # (Auto) 1.1, Monocytes # (Auto) 0.7, Eosinophils # (Auto) 0.1, Basophils # (Auto) 0.0, Sodium Level 141, Potassium Level 3.1L, Chloride Level 109H, Carbon Dioxide Level 22, Anion Gap 10, Blood Urea Nitrogen 3L, Creatinine 0.82, Estimat Glomerular Filtration Rate > 60, BUN/Creatinine Ratio 4, Glucose Level 86, Calcium Level 8.1L, Phosphorus Level 4.1, Magnesium Level 1.5L 12/28/18 20:05: Vancomycin Level Trough 32.3*H Microbiology 12/23/18 Blood Culture - Preliminary, Resulted No growth 12/23/18 MRSA Screen - Final, Complete MRSA not isolated 12/24/18 Gram Stain - Final, Complete 12/24/18 Anaerobic Culture - Final, Complete No anaerobes isolated 12/24/18 Surgical Culture - Final, Complete Staphylococcus aureus Assessment/Plan Assessment/Plan Assessment/Plan s/p i and d debridement of necrotic soft tissue mons, right labia and buttock patient with barbosa will dc in am still with indurated/erythematous of mons area slowly improving will, get u/s to re-evaluate continue with wound care abx may still need surgical intervention and this is possible to rapidly worsen. patient understands and all questions answered. Clinical Quality Measures DVT/VTE Risk/Contraindication: Risk Factor Score Per Nursin RFS Level Per Nursing on Admit: 3=High KELSEY MC DO Dec 28, 2018 22:24
[2018-12-29] MEDS: HYDROcodone/APAP 5 MG/325 MG (LORTAB) TAB PO PRN ×3 (00:36→17:00)
[2018-12-29 00:48] VITALS: BP 161/74
[2018-12-29] MEDS: ADVAIR HFA 115/21 MCG INHALER 8 GM IH SCH ×3 (02:02→18:56)
[2018-12-29] MEDS: RT-ALBUTEROL/IPRATROPIUM 3 ML (DUONEB) VIAL INH SCH ×6 (02:02→22:20)
[2018-12-29 04:45] VITALS: BP 158/79
[2018-12-29 06:38] LABS: BASOPHILS % (AUTO) 0 % (0-10); EOSINOPHILS # (AUTO) 0.1 10^3/uL (0.0-0.3); EOSINOPHILS % (AUTO) 1 % (0-10); HEMATOCRIT 33 % (35-52); LYMPHOCYTES # (AUTO) 1.7 X 10^3 (1.0-4.0); LYMPHOCYTES % (AUTO) 16 % (12-44); MEAN CORPUSCULAR HEMOGLOBIN 30 PG (25-34); MEAN CORPUSCULAR HGB CONC 33 G/DL (32-36); MEAN CORPUSCULAR VOLUME 92 FL (80-99); MEAN PLATELET VOLUME 9.6 FL (7.4-10.4); MONOCYTES % (AUTO) 9 % (0-12); NEUTROPHILS # (AUTO) 8.2 X 10^3 (1.8-7.8); NEUTROPHILS % (AUTO) 75 % (42-75); PLATELET COUNT 315 10^3/uL (130-400); RED CELL DISTRIBUTION WIDTH 16.4 % (10.0-14.5)
[2018-12-29 06:58] LABS: BUN/CREATININE RATIO 5; CALCIUM 8.4 MG/DL (8.5-10.1); CARBON DIOXIDE 25 MMOL/L (21-32); CHLORIDE 105 MMOL/L (98-107); CREATININE SERUM 0.94 MG/DL (0.60-1.30); GFR ESTIMATED > 60; GLUCOSE 96 MG/DL (70-105); MAGNESIUM 1.6 MG/DL (1.6-2.4); PHOSPHORUS 4.5 MG/DL (2.3-4.7); POTASSIUM 4.1 MMOL/L (3.6-5.0); SODIUM 139 MMOL/L (135-145)
[2018-12-29] MEDS: POTASSIUM CL 10MEQ/50ML IVPB 50 ML IV SCH (06:59)
[2018-12-29] MEDS: KCL 20 MEQ TAB (K-DUR) PO SCH (07:00)
[2018-12-29 08:00] VITALS: BP 127/75
[2018-12-29] MEDS: DOCUSATE SODIUM 100 MG (COLACE) CAP PO SCH ×2 (10:21→20:02)
[2018-12-29] MEDS: DULoxetine 30 MG (CYMBALTA) CAP PO SCH ×2 (10:22→20:01)
[2018-12-29] MEDS: LEVOTHYROXINE 112 MCG (LEVOTHROID) TAB PO SCH (10:22)
[2018-12-29] MEDS: SENNA W/DOCUSATE (SENOKOT S) TABLET PO SCH ×2 (10:22→20:02)
[2018-12-29] MEDS: LOSARTAN 100 MG (COZAAR) TABLET PO SCH (10:22)
[2018-12-29] MEDS: MAGNESIUM 1 GM/100 ML IVPB 100 ML IV SCH (10:28)
[2018-12-29] MEDS: DAKIN'S 1/2 STRENGTH (0.25%) 473 ML BTL TOP SCH ×2 (10:31→20:02)
--- NOTE | 2018-12-29 10:33 | Diagnostic Imaging Report ---
INDICATION: Right labial cellulitis. FINDINGS: Sonographic interrogation of right pubic and labial region was performed. There is some minimal edema in the subcutaneous tissues but no discrete fluid collection or abscess is detected. IMPRESSION: Subcutaneous edema. No discrete fluid collection or abscess is detected. Dictated by: Dictated on workstation # [id number]
[2018-12-29] MEDS: PANTOPRAZOLE 40 MG (PROTONIX) TAB PO SCH (10:34)
[2018-12-29] MEDS: ENOXAPARIN 40 MG/0.4 ML (LOVENOX) SYR SC SCH (10:35)
[2018-12-29] MEDS: FLUTICASONE NASAL SPRAY (FLONASE) 16 GM BTL NS SCH (10:35)
--- NOTE | 2018-12-29 11:39 | Physical Therapy Daily Note ---
PT Daily Note-Current Subjective Patient in bed pre tx, agrees to PT reluctantly, has significant groin pain. Appearance Patient BTB post tx with nurse call, phone, tray, all needs met. Mental Status Patient Orientation: Person, Place, Situation Attachments: Oxygen Transfers SCALE: Activities may be completed with or without assistive devices. 2-Ithnxxolbf-zvicfad completes the activity by him/herself with no assistance from a helper. 5-Set-up or Clean-up Assistance-helper sets up or cleans up; patient completes activity. [place] assists only prior to or following the activity. 4-Supervision or Touching Assistance-helper provides verbal cues and/or touching/steadying and/or contact guard assistance as patient completes activity. Assistance may be provided throughout the activity or intermittently. 3-Partial/Moderate Assistance-helper does LESS THAN HALF the effort. [place] lifts, holds or supports trunk or limbs, but provides less than half the effort. 2-Substantial/Maximal Assistance-helper does MORE THAN HALF the effort. [place] lifts or holds trunk or limbs and provides more than half the effort. 7-Sxkazkxgn-bmqrub does ALL the effort. Patient does none of the effort to complete the activity. Or, the assistance of 2 or more helpers is required for the patient to complete the activity. If activity was not attempted, code reason: 7-Patient Refused. 9-Not Applicable-not attempted and the patient did not perform the activity before the current illness, exacerbation or injury. 10-Not Attempted due to Environmental Limitations-(lack of equipment, weather restraints, etc.). 88-Not Attempted due to Medical Conditions or Safety Concerns. Roll Left to Right (QC): 4 Sit to Lying (QC): 4 Sit to Stand (QC): 4 Chair/Boi-pg-Iuqck Xfer(QC): 4 SBA Gait Training Distance: 100' Walk 10 feet (QC): 4 Walk 50 ft with 2 Turns(QC): 4 Gait Persons Needed: 1 Gait Assistive Device: FWW slow but steady ambulation, wide MAGGIE, states she is fatiguing and isn't sure if she can make it back to the bed at the end of ambulation but she is able to. Exercises Supine Ex: Ankle pumps, Heel Slides Supine Reps: 15 Treatments ambulation, bed mobility and transfers, LE exercise Assessment Current Status: Fair Progress slightly improved endurance PT Mcc Goals Boarder Machine Goals PT Boarder Machine Goals Time Frame: Jan 05, 2019 Sit to Lying (QC): 6 Lying-Sitting on Side/Bed(QC): 6 Sit to Stand (QC): 6 Roll Left to Right (QC): 6 Chair/Vcx-zo-Brnxp Xfer(QC): 6 Car Transfer (QC): 6 Does the Patient Walk: Yes Distance: 150' Walk 10 feet (QC): 6 Walk 10ft-Uneven Surface(QC): 6 Walk 50ft with 2 Turns (QC): 6 Walk 150 ft (QC): 6 Gait Assistive Device: FWW Picking up an Object (QC): 6 PT Plan Problem List Problem List: Activity Tolerance, Functional Strength, Safety, Balance, Gait, Transfer, Bed Mobility Treatment/Plan Treatment Plan: Continue Plan of Care Treatment Plan: Bed Mobility, Education, Functional Activity Anton, Functional Strength, Gait, Safety, Therapeutic Exercise, Transfers Treatment Duration: Jan 05, 2019 Frequency: 6 times per week Estimated Hrs Per Day: .25 hour per day Patient and/or Family Agrees t: Yes Safety Risks/Education Patient Education: Gait Training, Transfer Techniques, Correct Positioning, Safety Issues Teaching Recipient: Patient Teaching Methods: Demonstration, Discussion Response to Teaching: Reinforcement Needed Time/GCodes Time In: 1120 Time Out: 1130 Total Billed Treatment Time: 10 Total Billed Treatment 1 visit GT 10' WYATT BORJA PT Dec 29, 2018 11:39
[2018-12-29 12:00] VITALS: BP 162/83
[2018-12-29] MEDS ORDERED: MILK OF MAGNESIA 400 MG/5 ML 30 ML UDC PO ONE (13:15)
--- NOTE | 2018-12-29 13:16 | NUR ---
VANCOMYCIN DOSING TROUGH LEVEL 32.3 (12/28 20:05) RECHECK LEVEL 21.6 (12/29 10:19) - RESTART VANC 1 GM Q24H CHECK TROUGH LEVEL 12/31 1700
[2018-12-29] MEDS ORDERED: FUROSEMIDE 40 MG (LASIX) TAB PO NR (13:30)
[2018-12-29] MEDS ORDERED: predniSONE 20 MG TAB PO NR (13:30)
[2018-12-29] MEDS ORDERED: KCL 20 MEQ TAB (K-DUR) PO NR (13:30)
--- NOTE | 2018-12-29 14:33 | NUR ---
RD ASSESSMENT PMHx: COPD, HTN, GERD, wound PT INTERACTION: Pt was awake and pleasant during nutrition assessment. Pt states current appetite is "so-so" and has been for the past few weeks. Pt states following a regular diet at home, and having no recent issues with chewing/swallowing at this time. Pt states no recent with n/v at this time. Pt states some recent issues with constipation. Note last BM recorded was 12/24. Pt states recent 19# wt loss x3-6mon. Note recent 18# wt gain x3mon, per chart review. ABNORMAL NUTRITION-RELATED LAB VALUES: Hgb 11 (L); Hct 33 (L); BUN 5 (L); Ca 8.5 (L) Est. kcal needs: 3981-1175 kcal (15-20 kcal/kg) Est. Pro needs: 78-98 g Pro (0.8-1.0 g Pro/kg) PES STATEMENT: Inadequate oral intake related to loss of appetite as evidenced by pt interview INTERVENTION: Continue with current diet order of regular diet. Encouraged pt to eat when able. MONITOR/EVALUATE: PO Intake; Plan of Care; Hydration Status; Weight Status; Lab Values; Stool Output Shanta Peterson, MS, RD, LD [phone]
--- NOTE | 2018-12-29 15:18 | Progress Note - Surgery ---
[facility] 12/29/18 1518: Subjective Date Seen by a Provider: Dec 29, 2018 Time Seen by a Provider: 08:35 Subjective/Events-last exam Patient doing better. Skin infection has improved significantly with tenderness at the mons pubis and labia majora. Decreased erythema at the medial aspect of right thigh. Was convinced that catheter should be removed due to increased risk of infection. WBC at 11.0 Focused Exam Time of Focused Exam: 19:58 Objective Exam Vital Signs Date Time Temp Pulse Resp B/P (MAP) Pulse Ox O2 Delivery O2 Flow Rate FiO2 12/29/18 14:01 93 Nasal Cannula 3.00 12/29/18 12:00 35.7 82 18 162/83 (109) 94 Nasal Cannula 3.00 12/29/18 10:38 95 Nasal Cannula 3.00 12/29/18 10:32 94 Nasal Cannula 3.00 12/29/18 08:00 36.3 82 20 127/75 (92) 94 Nasal Cannula 3.00 12/29/18 08:00 Nasal Cannula 3.00 12/29/18 06:47 94 Nasal Cannula 3.00 12/29/18 04:45 36.0 65 20 158/79 (105) 94 Nasal Cannula 3.00 12/29/18 02:02 94 Nasal Cannula 3.00 12/29/18 00:48 35.9 80 18 161/74 (103) 93 Nasal Cannula 3.00 12/28/18 22:51 94 Nasal Cannula 3.00 12/28/18 20:30 Nasal Cannula 3.00 12/28/18 19:55 35.7 82 20 199/95 (129) 94 Nasal Cannula 3.00 12/28/18 16:24 36.2 82 18 189/90 (123) 92 Nasal Cannula 3.00 I & O 12/29/18 07:00 Intake Total 1720 ml Output Total 2400 ml Balance -680 ml Capillary Refill : Less Than 3 Seconds General Appearance: No Apparent Distress HEENT: PERRL/EOMI Neck: Normal Inspection, Supple Respiratory: Chest Non Tender, No Accessory Muscle Use, No Respiratory Distress Cardiovascular: Regular Rate, Rhythm Peripheral Pulses: 2+ Radial Pulses (R), 2+ Radial Pulses (L) Gastrointestinal: non tender, soft Extremity: Non Tender, No Calf Tenderness, No Pedal Edema Neurologic/Psychiatric: Alert, Oriented x3 Skin: Erythema (still with induration in mons pubis/right labia area, wound still indurated no slough or necrotic appearing tissue slowly improving) Lymphatic: No Adenopathy Other comments Decreased erythema and swellling at labia majora, mons pubis, medial aspect of thigh Tenderness at labia majora, mons pubis. Incision had iodoform packing. Wound is healing. Results Lab Laboratory Tests 12/28/18 20:05: Vancomycin Level Trough 32.3*H 12/29/18 06:30: White Blood Count 11.0, Red Blood Count 3.62L, Hemoglobin 11.0L, Hematocrit 33L, Mean Corpuscular Volume 92, Mean Corpuscular Hemoglobin 30, Mean Corpuscular Hemoglobin Concent 33, Red Cell Distribution Width 16.4H, Platelet Count 315, Mean Platelet Volume 9.6, Neutrophils (%) (Auto) 75, Lymphocytes (%) (Auto) 16, Monocytes (%) (Auto) 9, Eosinophils (%) (Auto) 1, Basophils (%) (Auto) 0, Neutrophils # (Auto) 8.2H, Lymphocytes # (Auto) 1.7, Monocytes # (Auto) 1.0, Eosinophils # (Auto) 0.1, Basophils # (Auto) 0.0, Sodium Level 139, Potassium Level 4.1, Chloride Level 105, Carbon Dioxide Level 25, Anion Gap 9, Blood Urea Nitrogen 5L, Creatinine 0.94, Estimat Glomerular Filtration Rate > 60, BUN/Creatinine Ratio 5, Glucose Level 96, Calcium Level 8.4L, Phosphorus Level 4.5, Magnesium Level 1.6 12/29/18 10:19: Vancomycin Level Trough 21.6H Microbiology 12/23/18 Blood Culture - Preliminary, Resulted No growth 12/23/18 MRSA Screen - Final, Complete MRSA not isolated 12/24/18 Gram Stain - Final, Complete 12/24/18 Anaerobic Culture - Final, Complete No anaerobes isolated 12/24/18 Surgical Culture - Final, Complete Staphylococcus aureus Assessment/Plan Assessment/Plan Assessment/Plan Per Sim LYONII s/p i and d debridement of necrotic soft tissue mons, right labia and buttock Consulted patient on removal of catheter. Ultrasound to evaluate progression of infected tissue antibiotics Per Dr. Mc. s/p i and d debridement of necrotic soft tissue mons, right labia and buttock patient with barbosa will dc in am still with indurated/erythematous of mons area slowly improving will, get u/s to re-evaluate continue with wound care abx may still need surgical intervention and this is possible to rapidly worsen. patient understands and all questions answered. Clinical Quality Measures DVT/VTE Risk/Contraindication: Risk Factor Score Per Nursin RFS Level Per Nursing on Admit: 3=High KELSEY MC DO 12/29/18 2250: Subjective Subjective/Events-last exam Patient feel she is doing better. Having more pain in the upper part of mons area. Trying to increase activity Denies n/v fever sweats chills shortness of breath or chest pain. Objective Exam General Appearance: No Apparent Distress HEENT: PERRL/EOMI Neck: Normal Inspection Respiratory: Chest Non Tender, No Accessory Muscle Use, No Respiratory Distress Gastrointestinal: non tender, soft Extremity: Non Tender, No Calf Tenderness Neurologic/Psychiatric: Alert, Oriented x3 Skin: Erythema (still with induration in mons pubis/right labia area, wound still indurated no slough or necrotic appearing tissue slowly improving) Lymphatic: No Adenopathy Assessment/Plan Assessment/Plan Assessment/Plan s/p i and d debridement of necrotic soft tissue mons, right labia and buttock barbosa dc'd this morning after discussion u/s not showing any fluid collection re-evaluation this evening slightl more edematous at mons area may need further surgical intervention or at least wash out will make npo after midnight, continue wound care continue abx Supervisory-Addendum Brief Verification & Attestation Participated in pt care: history, MDM, physical Personally performed: exam, history, MDM, supervision of care Care discussed with: Medical Student Procedures: n/a Results interpretation: Verified all documentation Verification and Attestation of Medical Student E/M Service A medical student performed and documented this service in my presence. I reviewed and verified all information documented by the medical student and made modifications to such information, when appropriate. I personally performed the physical exam and medical decision making. Kelsey Mc, Dec 29, 2018,22:50 MANPREET NÚÑEZ MED STUD Dec 29, 2018 15:18 KELSEY MC DO Dec 29, 2018 22:50
[2018-12-29 15:52] VITALS: BP 172/78
--- NOTE | 2018-12-29 18:19 | Progress Note ---
Subjective Date Seen by a Provider: Dec 29, 2018 Time Seen by a Provider: 12:45 Subjective/Events-last exam Fwup sepsis, pubic abscess, COPD, GERD, mood disorder. Diuresed well with IV lasix and IV solumedrol helped wheezing. Focused Exam Time of Focused Exam: 19:58 Objective Exam Vital Signs Date Time Temp Pulse Resp B/P (MAP) Pulse Ox O2 Delivery O2 Flow Rate FiO2 12/29/18 15:52 36.4 80 18 172/78 (109) 96 Nasal Cannula 2.50 12/29/18 14:01 93 Nasal Cannula 3.00 12/29/18 12:00 35.7 82 18 162/83 (109) 94 Nasal Cannula 3.00 12/29/18 10:38 95 Nasal Cannula 3.00 12/29/18 10:32 94 Nasal Cannula 3.00 12/29/18 08:00 36.3 82 20 127/75 (92) 94 Nasal Cannula 3.00 12/29/18 08:00 Nasal Cannula 3.00 12/29/18 06:47 94 Nasal Cannula 3.00 12/29/18 04:45 36.0 65 20 158/79 (105) 94 Nasal Cannula 3.00 12/29/18 02:02 94 Nasal Cannula 3.00 12/29/18 00:48 35.9 80 18 161/74 (103) 93 Nasal Cannula 3.00 12/28/18 22:51 94 Nasal Cannula 3.00 12/28/18 20:30 Nasal Cannula 3.00 12/28/18 19:55 35.7 82 20 199/95 (129) 94 Nasal Cannula 3.00 I & O 12/29/18 07:00 Intake Total 1720 ml Output Total 2400 ml Balance -680 ml Capillary Refill : Less Than 3 Seconds General Appearance: No Apparent Distress Respiratory: Lungs Clear Cardiovascular: Regular Rate, Rhythm Gastrointestinal: normal bowel sounds, non tender, soft Extremity: No Calf Tenderness, No Pedal Edema Neurologic/Psychiatric: Alert, Oriented x3 Skin: Erythema (to mons pubis and right labia majora with ongoing induration but does not look as edematous today) Results Lab Laboratory Tests 12/28/18 20:05: Vancomycin Level Trough 32.3*H 12/29/18 06:30: White Blood Count 11.0, Red Blood Count 3.62L, Hemoglobin 11.0L, Hematocrit 33L, Mean Corpuscular Volume 92, Mean Corpuscular Hemoglobin 30, Mean Corpuscular Hemoglobin Concent 33, Red Cell Distribution Width 16.4H, Platelet Count 315, Mean Platelet Volume 9.6, Neutrophils (%) (Auto) 75, Lymphocytes (%) (Auto) 16, Monocytes (%) (Auto) 9, Eosinophils (%) (Auto) 1, Basophils (%) (Auto) 0, Neut rophils # (Auto) 8.2H, Lymphocytes # (Auto) 1.7, Monocytes # (Auto) 1.0, Eosinophils # (Auto) 0.1, Basophils # (Auto) 0.0, Sodium Level 139, Potassium Level 4.1, Chloride Level 105, Carbon Dioxide Level 25, Anion Gap 9, Blood Urea Nitrogen 5L, Creatinine 0.94, Estimat Glomerular Filtration Rate > 60, BUN/Creatinine Ratio 5, Glucose Level 96, Calcium Level 8.4L, Phosphorus Level 4.5, Magnesium Level 1.6 12/29/18 10:19: Vancomycin Level Trough 21.6H Microbiology 12/23/18 Blood Culture - Final, Complete No growth 12/23/18 MRSA Screen - Final, Complete MRSA not isolated 12/24/18 Gram Stain - Final, Complete 12/24/18 Anaerobic Culture - Final, Complete No anaerobes isolated 12/24/18 Surgical Culture - Final, Complete Staphylococcus aureus Assessment/Plan Assessment/Plan Assess & Plan/Chief Complaint 1. Sepsis--improved, WBC count back to normal 2. Pubic Abscess--S/P I and D but still indurated so will await surgery recommendations, continue IV Vanc as is growing out MRSA 3. COPD--back on SVNS with duoneb, start low dose prednisone 4. GERD--on protonix 5. Mood Disorder--back on home meds 6. Edema--oral lasix with potassium 7. Constipation--on senokot-s, repeat MOM today 8. Weakness--doing PT Clinical Quality Measures Admission Status Admission Dx 1. Acute Sepsis--to ICU on sepsis protocol, currently on levaphed for hypotension, lovenox for DVT prophylaxis 2. Abscess of mons pubis/right labia majora--IV antibiotics and surgical consult for possible I and D 3. COPD--start SVNS with duoneb and IS 4. GERD--start protonix 5. Hyponatremia/electrolyte abnormalities--hydrate per protocol and treat infection and monitor electrolytes DVT/VTE Risk/Contraindication: Risk Factor Score Per Nursin RFS Level Per Nursing on Admit: 3=High GAVIN WAGNER DO Dec 29, 2018 18:18
[2018-12-29] MEDS: VANCOMYCIN INJECTION 1,000 MG in NS (IVPB) 250 ML IV SCH (19:15)
[2018-12-29] MEDS: amLODIPine 5 MG (NORVASC) TAB PO SCH (20:02)
[2018-12-29] MEDS: POLYETHYLENE GLYCOL 17 GM (MIRALAX) PACK PO SCH (20:02)
[2018-12-30] VITALS (13 sets, daily range): BP systolic 138–183; BP diastolic 70–87
[2018-12-30] MEDS: HYDROcodone/APAP 5 MG/325 MG (LORTAB) TAB PO PRN ×3 (01:03→20:33)
[2018-12-30] MEDS: RT-ALBUTEROL/IPRATROPIUM 3 ML (DUONEB) VIAL INH SCH ×7 (03:25→22:22)
[2018-12-30 05:33] LABS: BASOPHILS % (AUTO) 0 % (0-10); EOSINOPHILS # (AUTO) 0.1 10^3/uL (0.0-0.3); EOSINOPHILS % (AUTO) 2 % (0-10); HEMATOCRIT 33 % (35-52); HEMOGLOBIN 11.1 G/DL (11.5-16.0); LYMPHOCYTES # (AUTO) 1.7 X 10^3 (1.0-4.0); LYMPHOCYTES % (AUTO) 23 % (12-44); MEAN CORPUSCULAR HEMOGLOBIN 31 PG (25-34); MEAN CORPUSCULAR HGB CONC 33 G/DL (32-36); MEAN CORPUSCULAR VOLUME 92 FL (80-99); MEAN PLATELET VOLUME 9.4 FL (7.4-10.4); MONOCYTES # (AUTO) 0.7 X 10^3 (0.0-1.0); MONOCYTES % (AUTO) 9 % (0-12); NEUTROPHILS # (AUTO) 4.9 X 10^3 (1.8-7.8); NEUTROPHILS % (AUTO) 66 % (42-75); PLATELET COUNT 345 10^3/uL (130-400); RED CELL DISTRIBUTION WIDTH 16.7 % (10.0-14.5); WHITE BLOOD COUNT 7.4 10^3/uL (4.3-11.0)
[2018-12-30 05:59] LABS: BUN/CREATININE RATIO 5; CALCIUM 8.5 MG/DL (8.5-10.1); CARBON DIOXIDE 29 MMOL/L (21-32); CHLORIDE 101 MMOL/L (98-107); CREATININE SERUM 0.95 MG/DL (0.60-1.30); GFR ESTIMATED > 60; GLUCOSE 84 MG/DL (70-105); MAGNESIUM 1.7 MG/DL (1.6-2.4); PHOSPHORUS 4.1 MG/DL (2.3-4.7); POTASSIUM 3.8 MMOL/L (3.6-5.0); SODIUM 141 MMOL/L (135-145)
[2018-12-30] MEDS: POTASSIUM CL 10MEQ/50ML IVPB 50 ML IV SCH (06:02)
[2018-12-30] MEDS: KCL 20 MEQ TAB (K-DUR) PO SCH ×2 (06:03→19:10)
[2018-12-30] MEDS: MAGNESIUM 1 GM/100 ML IVPB 100 ML IV SCH ×3 (06:37→08:13)
[2018-12-30] MEDS: ADVAIR HFA 115/21 MCG INHALER 8 GM IH SCH ×2 (07:12→22:22)
[2018-12-30] MEDS: DOCUSATE SODIUM 100 MG (COLACE) CAP PO SCH ×2 (09:00→20:33)
[2018-12-30] MEDS: FLUTICASONE NASAL SPRAY (FLONASE) 16 GM BTL NS SCH (09:00)
[2018-12-30] MEDS: LEVOTHYROXINE 112 MCG (LEVOTHROID) TAB PO SCH (09:00)
[2018-12-30] MEDS: FUROSEMIDE 40 MG (LASIX) TAB PO SCH (09:00)
[2018-12-30] MEDS: PANTOPRAZOLE 40 MG (PROTONIX) TAB PO SCH (09:00)
[2018-12-30] MEDS: ENOXAPARIN 40 MG/0.4 ML (LOVENOX) SYR SC SCH (09:00)
[2018-12-30] MEDS: DULoxetine 30 MG (CYMBALTA) CAP PO SCH ×2 (09:00→20:32)
[2018-12-30] MEDS: SENNA W/DOCUSATE (SENOKOT S) TABLET PO SCH ×2 (09:00→20:33)
[2018-12-30] MEDS: DAKIN'S 1/2 STRENGTH (0.25%) 473 ML BTL TOP SCH ×2 (09:00→20:33)
--- NOTE | 2018-12-30 09:00 | NUR ---
PT REFUSED DAILY DRESSING CHANGE.
--- NOTE | 2018-12-30 09:21 | Physician Query Clarification ---
PQ-Conflicting Diagnosis Admission/Discharge Admission Date: Dec 23, 2018 at 19:44 Discharge Date: The medical record reflects the following clinical scenario: History/Risk Factors: Sepsis Abscess/cellulitis labia majora, gluteal cheek and mons pubis. Clinical Findings: Lactic Acid 2.09, persistent hypotension BP on admit 84/35, 10/ -94/46. Treatment: Levophed, IV Vancomycin and Zosyn. Question: Do you agree with the impression of the Septic shock per Dr. Shepard? Please document a response in Progress Note or Discharge Summary. 1. Yes 2. No 3. Other, with explanation of clinical findings 4. Clinically undetermined, no explanation for clinical findings. PHYSICIAN RESPONSE Do you agree w/Consulting Dx?: Yes Please remember a lack of response to the above will prompt a phone page by CDI/Coding staff. In responding to this query, please exercise your independent professional judgment. The purpose of this communication is to more accurately reflect the complexity of your patients condition. The fact that a question is asked does not imply that any particular answer is desired or expected. Thank you for your timely response to this clarification. Requestors name: Maya Schilling [facility] Phone # ext [phone] or [phone] THIS PHYSICIAN QUERY FORM IS A PERMANENT PART OF THE MEDICAL RECORD MAYA SCHILLING Dec 30, 2018 09:21 GAVIN WAGNER DO Dec 30, 2018 12:44
--- NOTE | 2018-12-30 10:43 | Physical Therapy Daily Note ---
PT Daily Note-Current Subjective Patient agrees to PT. She reports she is having surgery today. Pain Numeric Pain Scale: 9 Location: Soft Tissue Location Body Site: Genital Pain Description: Pressure Mental Status Patient Orientation: Normal For Age Attachments: IV Transfers SCALE: Activities may be completed with or without assistive devices. 0-Wbpoxbtbhl-phpqogv completes the activity by him/herself with no assistance from a helper. 5-Set-up or Clean-up Assistance-helper sets up or cleans up; patient completes activity. [place] assists only prior to or following the activity. 4-Supervision or Touching Assistance-helper provides verbal cues and/or touching/steadying and/or contact guard assistance as patient completes activity. Assistance may be provided throughout the activity or intermittently. 3-Partial/Moderate Assistance-helper does LESS THAN HALF the effort. [place] lifts, holds or supports trunk or limbs, but provides less than half the effort. 2-Substantial/Maximal Assistance-helper does MORE THAN HALF the effort. [place] lifts or holds trunk or limbs and provides more than half the effort. 5-Zmccinqak-keruzl does ALL the effort. Patient does none of the effort to complete the activity. Or, the assistance of 2 or more helpers is required for the patient to complete the activity. If activity was not attempted, code reason: 7-Patient Refused. 9-Not Applicable-not attempted and the patient did not perform the activity before the current illness, exacerbation or injury. 10-Not Attempted due to Environmental Limitations-(lack of equipment, weather restraints, etc.). 88-Not Attempted due to Medical Conditions or Safety Concerns. Transfers (B, C, W/C): 6 Roll Left to Right (QC): 6 Sit to Lying (QC): 6 Sit to Stand (QC): 6 Chair/Lfc-pw-Fqmfy Xfer(QC): 6 Bed to/from Chair: 6 Gait Training Does the Patient Walk?: Yes Distance: 200' Walk 10 feet (QC): 6 Walk 50 ft with 2 Turns(QC): 6 Walk 150 ft (QC): 6 Gait Assistive Device: FWW improved, steady gait sequence with FWW Assessment Patient returned to room and sitting on EOB with RN present to issue medication. Plan dismissal from services after tomorrows treatment secondary to patient is at PLOF with all gross motor skills. PT Assisted Goals Warehouse Team Member Goals PT Warehouse Team Member Goals Time Frame: Jan 05, 2019 Sit to Lying (QC): 6 Lying-Sitting on Side/Bed(QC): 6 Sit to Stand (QC): 6 Roll Left to Right (QC): 6 Chair/Ojx-vz-Dcsan Xfer(QC): 6 Car Transfer (QC): 6 Does the Patient Walk: Yes Distance: 150' Walk 10 feet (QC): 6 Walk 10ft-Uneven Surface(QC): 6 Walk 50ft with 2 Turns (QC): 6 Walk 150 ft (QC): 6 Gait Assistive Device: FWW Picking up an Object (QC): 6 PT Plan Treatment/Plan Treatment Plan: Continue Plan of Care Treatment Plan: Bed Mobility, Education, Functional Activity Anton, Functional Strength, Gait, Safety, Therapeutic Exercise, Transfers Treatment Duration: Jan 05, 2019 Frequency: 6 times per week Estimated Hrs Per Day: .25 hour per day Patient and/or Family Agrees t: Yes Time/GCodes Time In: 920 Time Out: 930 Total Billed Treatment Time: 10 Total Billed Treatment 1 visit FA 10 min PITA COLBY PT Dec 30, 2018 10:43
--- NOTE | 2018-12-30 12:47 | Progress Note ---
Subjective Date Seen by a Provider: Dec 30, 2018 Time Seen by a Provider: 12:45 Subjective/Events-last exam Fwup sepsis, pubic abscess, COPD, GERD, mood disorder. More swelling and hardness and pain in pubic area so going back to surgery this afternoon. Did have BM. Focused Exam Time of Focused Exam: 19:58 Objective Exam Vital Signs Date Time Temp Pulse Resp B/P (MAP) Pulse Ox O2 Delivery O2 Flow Rate FiO2 12/30/18 08:48 36.3 88 18 155/75 (101) 90 Nasal Cannula 2.00 12/30/18 07:30 Nasal Cannula 2.00 12/30/18 07:19 Nasal Cannula 2.00 12/30/18 07:12 93 Nasal Cannula 2.00 12/30/18 03:55 36.1 78 18 165/74 (104) 93 Nasal Cannula 2.50 12/30/18 03:25 Nasal Cannula 2.00 12/30/18 02:33 183/81 (115) 12/30/18 00:35 36.0 79 18 95 Nasal Cannula 2.50 12/29/18 22:20 95 Nasal Cannula 2.00 12/29/18 20:45 Nasal Cannula 3.00 12/29/18 18:57 92 Nasal Cannula 2.00 12/29/18 15:52 36.4 80 18 172/78 (109) 96 Nasal Cannula 2.50 12/29/18 14:01 93 Nasal Cannula 3.00 I & O 12/30/18 07:00 Intake Total 1625 ml Output Total 2300 ml Balance -675 ml Capillary Refill : Less Than 3 Seconds General Appearance: No Apparent Distress Neck: Supple Respiratory: Lungs Clear Cardiovascular: Regular Rate, Rhythm Gastrointestinal: normal bowel sounds, non tender, soft Extremity: Non Tender, No Calf Tenderness, Pedal Edema (trace) Neurologic/Psychiatric: Alert, Oriented x3 Skin: Erythema (with worsening swelling/induration to mons pubis/right labial area) Results Lab Laboratory Tests 12/30/18 05:15: White Blood Count 7.4, Red Blood Count 3.62L, Hemoglobin 11.1L, Hematocrit 33L, Mean Corpuscular Volume 92, Mean Corpuscular Hemoglobin 31, Mean Corpuscular Hemoglobin Concent 33, Red Cell Distribution Width 16.7H, Platelet Count 345, Mean Platelet Volume 9.4, Neutrophils (%) (Auto) 66, Lymphocytes (%) (Auto) 23, Monocytes (%) (Auto) 9, Eosinophils (%) (Auto) 2, Basophils (%) (Auto) 0, Neutrophils # (Auto) 4.9, Lymphocytes # (Auto) 1.7, Monocytes # (Auto) 0.7, Eosinophils # (Auto) 0.1, Basophils # (Auto) 0.0, Sodium Level 141, Potassium Level 3.8, Chloride Level 101, Carbon Dioxide Level 29, Anion Gap 11, Blood Urea Nitrogen 5L, Creatinine 0.95, Estimat Glomerular Filtration Rate > 60, BUN/Creatinine Ratio 5, Glucose Level 84, Calcium Level 8.5, Phosphorus Level 4.1, Magnesium Level 1.7 Microbiology 12/23/18 Blood Culture - Final, Complete No growth 12/23/18 MRSA Screen - Final, Complete MRSA not isolated 12/24/18 Gram Stain - Final, Complete 12/24/18 Anaerobic Culture - Final, Complete No anaerobes isolated 12/24/18 Surgical Culture - Final, Complete Staphylococcus aureus Assessment/Plan Assessment/Plan Assess & Plan/Chief Complaint 1. Sepsis--improved, WBC count back to normal 2. Pubic Abscess--S/P I and D but worsening induration/pain/swelling so back to surgery this afternoon 3. COPD--back on SVNS with duoneb, started low dose prednisone 4. GERD--on protonix 5. Mood Disorder--back on home meds 6. Edema--oral lasix with potassium started 7. Constipation--improved 8. Weakness--doing PT Clinical Quality Measures Admission Status Admission Dx 1. Acute Sepsis--to ICU on sepsis protocol, currently on levaphed for hypotension, lovenox for DVT prophylaxis 2. Abscess of mons pubis/right labia majora--IV antibiotics and surgical consult for possible I and D 3. COPD--start SVNS with duoneb and IS 4. GERD--start protonix 5. Hyponatremia/electrolyte abnormalities--hydrate per protocol and treat infection and monitor electrolytes DVT/VTE Risk/Contraindication: Risk Factor Score Per Nursin RFS Level Per Nursing on Admit: 3=High GAVIN WAGNER DO Dec 30, 2018 12:47
[2018-12-30] MEDS ORDERED: PANTOPRAZOLE 40 MG (PROTONIX) VIAL IV ONE (16:00)
--- NOTE | 2018-12-30 16:19 | Diagnostic Imaging Report ---
EXAMINATION: Portable erect AP chest at 04:01 p.m. INDICATION: Chest pain. FINDINGS: In the interval since the prior exam of 12/26/2018, the central venous catheter on the right has been removed. There is no sign of a pneumothorax. The heart is stable in size when compared to the prior exam, but the interstitial densities do seem perhaps somewhat less prominent than on the prior study. There is still no evidence for overt failure or pneumonia and there is no pleural effusion visualized. The mediastinum is not widened. The osseous structures are intact. IMPRESSION: 1. The appearance of the chest has improved somewhat since the prior study as the interstitial densities in both lungs do not appear as prominent. There is no acute abnormality identified. 2. There has been removal of the central venous catheter on the right without apparent complication. Dictated by: Dictated on workstation # [id number]
[2018-12-30] MEDS ORDERED: LACTATED RINGERS 1,000 ML IV PRN (16:31)
[2018-12-30] MEDS ORDERED: ONDANSETRON 4 MG/2 ML (SDV) Z0FRAN IVP PRN (16:45)
[2018-12-30] MEDS ORDERED: morphine INJ 10 MG/ML 1ML (SYR OR VIAL) IVP ONE (16:45)
[2018-12-30] MEDS ORDERED: fentaNYL INJECTION 100 MCG/2 ML AMP IVP ONE (16:45)
[2018-12-30] MEDS ORDERED: MEPERIDINE (DEMEROL) INJ 50 MG/ML IVP ONE (16:45)
[2018-12-30] MEDS ORDERED: fentaNYL INJECTION 100 MCG/2 ML AMP ONE ×2 (16:57→17:39)
[2018-12-30] MEDS ORDERED: DEXAMETHASONE 10 MG/ML (DECADRON) 1 ML VIAL ONE (16:57)
[2018-12-30] MEDS ORDERED: ONDANSETRON 4 MG/2 ML (SDV) Z0FRAN ONE (16:57)
[2018-12-30] MEDS ORDERED: LIDOCAINE PF 2% 5 ML (XYLOCAINE) VIAL ONE (16:57)
[2018-12-30] MEDS ORDERED: MIDAZOLAM 2 MG/2 ML (VERSED) VIAL ONE (16:57)
[2018-12-30] MEDS ORDERED: proPOfol 200 MG/20 ML (DIPRIVAN) VIAL IV ONE (16:57)
[2018-12-30] MEDS ORDERED: SEVOFLURANE (ULTANE) 15 ML INHAL SOLN ONE ×9 (16:57→17:28)
--- NOTE | 2018-12-30 17:00 | NUR ---
PT TAKEN OFF FLOOR FOR PROCEDURE
--- NOTE | 2018-12-30 17:13 | Progress Note - Surgery ---
Subjective Date Seen by a Provider: Dec 30, 2018 Time Seen by a Provider: 16:11 Subjective/Events-last exam Patient doing okay but still with pain in groin/mons area. U/s reviewed yesterday with no significant collection. Patient reflux is bothering her since she's been NPO. No other new complaints. Focused Exam Time of Focused Exam: 19:58 Objective Exam Vital Signs Date Time Temp Pulse Resp B/P (MAP) Pulse Ox O2 Delivery O2 Flow Rate FiO2 12/30/18 16:20 36.2 80 20 170/82 (111) 92 Nasal Cannula 2.00 12/30/18 12:00 35.6 80 18 175/79 (111) 95 Nasal Cannula 2.00 12/30/18 08:48 36.3 88 18 155/75 (101) 90 Nasal Cannula 2.00 12/30/18 07:30 Nasal Cannula 2.00 12/30/18 07:19 Nasal Cannula 2.00 12/30/18 07:12 93 Nasal Cannula 2.00 12/30/18 03:55 36.1 78 18 165/74 (104) 93 Nasal Cannula 2.50 12/30/18 03:25 Nasal Cannula 2.00 12/30/18 02:33 183/81 (115) 12/30/18 00:35 36.0 79 18 95 Nasal Cannula 2.50 12/29/18 22:20 95 Nasal Cannula 2.00 12/29/18 20:45 Nasal Cannula 3.00 12/29/18 18:57 92 Nasal Cannula 2.00 I & O 12/30/18 07:00 Intake Total 1625 ml Output Total 2300 ml Balance -675 ml Capillary Refill : Less Than 3 Seconds General Appearance: No Apparent Distress HEENT: PERRL/EOMI Neck: Supple Respiratory: Lungs Clear Cardiovascular: Regular Rate, Rhythm Peripheral Pulses: 2+ Radial Pulses (R), 2+ Radial Pulses (L) Gastrointestinal: normal bowel sounds, non tender, soft Extremity: Non Tender, No Calf Tenderness, Pedal Edema (trace) Neurologic/Psychiatric: Alert, Oriented x3 Skin: Erythema (with worsening swelling/induration to mons pubis/right labial area) Lymphatic: No Adenopathy Results Lab Laboratory Tests 12/30/18 05:15: White Blood Count 7.4, Red Blood Count 3.62L, Hemoglobin 11.1L, Hematocrit 33L, Mean Corpuscular Volume 92, Mean Corpuscular Hemoglobin 31, Mean Corpuscular Hemoglobin Concent 33, Red Cell Distribution Width 16.7H, Platelet Count 345, Mean Platelet Volume 9.4, Neutrophils (%) (Auto) 66, Lymphocytes (%) (Auto) 23, Monocytes (%) (Auto) 9, Eosinophils (%) (Auto) 2, Basophils (%) (Auto) 0, Neutrophils # (Auto) 4.9, Lymphocytes # (Auto) 1.7, Monocytes # (Auto) 0.7, Eosinophils # (Auto) 0.1, Basophils # (Auto) 0.0, Sodium Level 141, Potassium Level 3.8, Chloride Level 101, Carbon Dioxide Level 29, Anion Gap 11, Blood Urea Nitrogen 5L, Creatinine 0.95, Estimat Glomerular Filtration Rate > 60, BUN/Creatinine Ratio 5, Glucose Level 84, Calcium Level 8.5, Phosphorus Level 4.1, Magnesium Level 1.7 Microbiology 12/23/18 Blood Culture - Final, Complete No growth 12/23/18 MRSA Screen - Final, Complete MRSA not isolated 12/24/18 Gram Stain - Final, Complete 12/24/18 Anaerobic Culture - Final, Complete No anaerobes isolated 12/24/18 Surgical Culture - Final, Complete Staphylococcus aureus Assessment/Plan Assessment/Plan Assessment/Plan cellulitis/necrotic soft tissue mons, right labia and buttock plan on taking to or for further incision and drainage/debridement or mons, right labia and buttock she agrees with plan to or npo Clinical Quality Measures DVT/VTE Risk/Contraindication: Risk Factor Score Per Nursin RFS Level Per Nursing on Admit: 3=High KELSEY MC DO Dec 30, 2018 17:13
[2018-12-30] MEDS ORDERED: PROMETHAZINE INJ 25 MG/ML (PHENERGAN) AMP ONE (18:18)
--- NOTE | 2018-12-30 18:50 | NUR ---
PT BACK TO FLOOR FROM PROCEDURE
[2018-12-30] MEDS: predniSONE 20 MG TAB PO SCH (19:09)
[2018-12-30] MEDS: VANCOMYCIN INJECTION 1,000 MG in NS (IVPB) 250 ML IV SCH (19:09)
[2018-12-30] MEDS: amLODIPine 5 MG (NORVASC) TAB PO SCH (19:10)
[2018-12-30] MEDS: LOSARTAN 100 MG (COZAAR) TABLET PO SCH (19:11)
[2018-12-30] MEDS: POLYETHYLENE GLYCOL 17 GM (MIRALAX) PACK PO SCH (20:33)
--- NOTE | 2018-12-30 23:45 | OPERATIVE REPORT ---
DATE OF SERVICE: 12/30/2018 PREOPERATIVE DIAGNOSIS: Necrotic abscess of the mons and right labia, right buttock. POSTOPERATIVE DIAGNOSIS: Necrotic abscess of the mons and right labia, right buttock. PROCEDURE: Incision, debridement 15 x 6 x 5 cm skin and subcutaneous tissue. SURGEON: Kelsey Rich D.O. ANESTHESIA: General. ESTIMATED BLOOD LOSS: Minimal. COMPLICATIONS: None. INDICATIONS: The patient is a 58-year-old female with previous incision and drainage. The wound was slowly healing, continued to look better. There were still some areas that need to be looked in the operating room. There was an area of the mons as well, which is the primary reason that demonstrated erythematous changes, still firmness and suspicion for further necrotic tissue in these layers. The patient understands risks and benefits and wished to proceed with procedure. Consent was signed in the chart. DESCRIPTION OF PROCEDURE: The patient was taken to the operating suite. She was placed in lithotomy position. She was prepped and draped in sterile fashion. Timeout was performed. Exploration of the existing wound was present and some necrotic tissue on the inferior aspect very minimal though, but further probing, there was two small pockets present within this area. The tissue was then debrided and opened this area up further for packing and further care. Some of the skin and subcutaneous tissues were then excised removing the necrotic tissues and also assisting further wound care. On the mons area, there was still necrotic tissue that was able to be found on the more superior aspect of the wound with several pockets that were created. Cautery was used to open these areas up and the skin and subcutaneous tissues were then debrided off. Overall, size of the wound after all of the debridement was 15 x 6 x 5 cm. The wound was irrigated with copious amounts of irrigation and then packed and sterile bandage was applied. The patient tissues were all healthy appearing at the time of ending of the surgery. Job ID: [id number] DocumentID: [id number] Dictated Date: 12/30/2018 18:41:53 Advertising Vice President Date: 12/30/2018 23:45:11 Dictated By: KELSEY RICH DO
[2018-12-31 00:05] VITALS: BP 144/77
[2018-12-31] MEDS: RT-ALBUTEROL/IPRATROPIUM 3 ML (DUONEB) VIAL INH SCH ×4 (02:51→19:05)
[2018-12-31] MEDS: predniSONE 20 MG TAB PO SCH (04:45)
[2018-12-31] MEDS: HYDROcodone/APAP 5 MG/325 MG (LORTAB) TAB PO PRN ×3 (04:45→20:18)
[2018-12-31 05:34] VITALS: BP 157/71
[2018-12-31 06:13] LABS: BASOPHILS % (AUTO) 0 % (0-10); EOSINOPHILS % (AUTO) 0 % (0-10); HEMATOCRIT 34 % (35-52); HEMOGLOBIN 11.1 G/DL (11.5-16.0); LYMPHOCYTES % (AUTO) 11 % (12-44); MEAN CORPUSCULAR HEMOGLOBIN 31 PG (25-34); MEAN CORPUSCULAR HGB CONC 33 G/DL (32-36); MEAN CORPUSCULAR VOLUME 93 FL (80-99); MEAN PLATELET VOLUME 9.3 FL (7.4-10.4); MONOCYTES # (AUTO) 0.4 X 10^3 (0.0-1.0); MONOCYTES % (AUTO) 4 % (0-12); NEUTROPHILS # (AUTO) 7.5 X 10^3 (1.8-7.8); NEUTROPHILS % (AUTO) 85 % (42-75); PLATELET COUNT 325 10^3/uL (130-400); RED CELL DISTRIBUTION WIDTH 16.1 % (10.0-14.5); WHITE BLOOD COUNT 8.8 10^3/uL (4.3-11.0)
[2018-12-31 06:26] LABS: CALCIUM 7.8 MG/DL (8.5-10.1); CREATININE SERUM 0.96 MG/DL (0.60-1.30); MAGNESIUM 1.9 MG/DL (1.6-2.4); PHOSPHORUS 4.7 MG/DL (2.3-4.7); POTASSIUM 4.2 MMOL/L (3.6-5.0)
[2018-12-31] MEDS: POTASSIUM CL 10MEQ/50ML IVPB 50 ML IV SCH (06:33)
[2018-12-31] MEDS: MAGNESIUM 1 GM/100 ML IVPB 100 ML IV SCH (06:33)
[2018-12-31] MEDS: KCL 20 MEQ TAB (K-DUR) PO SCH ×2 (06:34→06:38)
[2018-12-31] MEDS ORDERED: RT-ADVAIR HFA 115/21 MCG PER PUFF IH ONE (06:47)
[2018-12-31] MEDS: ADVAIR HFA 115/21 MCG INHALER 8 GM IH SCH ×2 (06:59→19:06)
[2018-12-31 08:00] VITALS: BP 157/78
[2018-12-31] MEDS: PANTOPRAZOLE 40 MG (PROTONIX) TAB PO SCH (08:40)
[2018-12-31] MEDS: FUROSEMIDE 40 MG (LASIX) TAB PO SCH (08:41)
[2018-12-31] MEDS: amLODIPine 5 MG (NORVASC) TAB PO SCH (08:41)
[2018-12-31] MEDS: LEVOTHYROXINE 112 MCG (LEVOTHROID) TAB PO SCH (08:41)
[2018-12-31] MEDS: LOSARTAN 100 MG (COZAAR) TABLET PO SCH (08:41)
[2018-12-31] MEDS: SENNA W/DOCUSATE (SENOKOT S) TABLET PO SCH ×2 (08:41→21:52)
[2018-12-31] MEDS: DOCUSATE SODIUM 100 MG (COLACE) CAP PO SCH ×2 (08:41→21:52)
[2018-12-31] MEDS: DULoxetine 30 MG (CYMBALTA) CAP PO SCH ×2 (08:42→21:51)
[2018-12-31] MEDS: FLUTICASONE NASAL SPRAY (FLONASE) 16 GM BTL NS SCH (08:45)
[2018-12-31] MEDS: DAKIN'S 1/2 STRENGTH (0.25%) 473 ML BTL TOP SCH ×2 (08:45→21:52)
[2018-12-31] MEDS: ENOXAPARIN 40 MG/0.4 ML (LOVENOX) SYR SC SCH (09:24)
--- NOTE | 2018-12-31 10:03 | Progress Note ---
Subjective Date Seen by a Provider: Dec 31, 2018 Time Seen by a Provider: 10:01 Subjective/Events-last exam Fwup sepsis, pubic abscess, COPD, GERD, mood disorder. Went back to surgery yesterday and found a superior abscess pocket that was drained. Focused Exam Time of Focused Exam: 19:58 Objective Exam Vital Signs Date Time Temp Pulse Resp B/P (MAP) Pulse Ox O2 Delivery O2 Flow Rate FiO2 12/31/18 08:00 35.4 79 20 157/78 (104) 94 Nasal Cannula 3.00 12/31/18 06:59 94 Nasal Cannula 3.00 12/31/18 05:34 36.6 73 19 157/71 (99) 94 Nasal Cannula 2.00 12/31/18 04:00 36.6 12/31/18 02:51 92 Nasal Cannula 3.00 12/31/18 00:05 36.2 75 19 144/77 (99) 98 Nasal Cannula 2.00 12/30/18 22:22 Nasal Cannula 2.00 12/30/18 22:22 98 Nasal Cannula 3.00 12/30/18 20:10 Nasal Cannula 3.00 12/30/18 19:06 36.0 77 20 173/77 (109) 93 Nasal Cannula 2.00 12/30/18 18:50 OxyMask 3 12/30/18 18:50 19 149/70 (96) 94 Nasal Cannula 3 12/30/18 18:40 19 149/70 (96) 94 OxyMask 3 12/30/18 18:40 OxyMask 3 12/30/18 18:30 OxyMask 3 12/30/18 18:30 22 156/72 (100) 94 OxyMask 3 12/30/18 18:20 21 155/72 (99) 94 OxyMask 3 12/30/18 18:15 OxyMask 3 12/30/18 18:10 20 167/87 (113) 96 OxyMask 3 12/30/18 18:00 OxyMask 3 12/30/18 18:00 20 138/73 (94) 100 OxyMask 3 12/30/18 17:54 OxyMask 8 12/30/18 17:54 36.8 19 150/77 (101) 97 OxyMask 8 12/30/18 16:20 36.2 80 20 170/82 (111) 92 Nasal Cannula 2.00 12/30/18 12:00 35.6 80 18 175/79 (111) 95 Nasal Cannula 2.00 I & O 12/31/18 07:00 Intake Total 2160 ml Output Total 2400 ml Balance -240 ml Capillary Refill : Less Than 3 SecondsLess Than 3 Seconds General Appearance: No Apparent Distress Neck: Supple Respiratory: Lungs Clear Cardiovascular: Regular Rate, Rhythm Gastrointestinal: normal bowel sounds, non tender, soft Extremity: Non Tender, No Calf Tenderness, No Pedal Edema Neurologic/Psychiatric: Alert, Oriented x3 Skin: Warm/Dry, Other (dressing to pubic area in place with much less erythema/swelling and induration) Results Lab Laboratory Tests 12/30/18 19:00: Troponin I < 0.028 12/31/18 05:57: White Blood Count 8.8, Red Blood Count 3.64L, Hemoglobin 11.1L, Hematocrit 34L, Mean Corpuscular Volume 93, Mean Corpuscular Hemoglobin 31, Mean Corpuscular Hemoglobin Concent 33, Red Cell Distribution Width 16.1H, Platelet Count 325, Mean Platelet Volume 9.3, Neutrophils (%) (Auto) 85H, Lymphocytes (%) (Auto) 11L , Monocytes (%) (Auto) 4, Eosinophils (%) (Auto) 0, Basophils (%) (Auto) 0, Neutrophils # (Auto) 7.5, Lymphocytes # (Auto) 1.0, Monocytes # (Auto) 0.4, Eosinophils # (Auto) 0.0, Basophils # (Auto) 0.0, Sodium Level 138, Potassium Level 4.2, Chloride Level 100, Carbon Dioxide Level 30, Anion Gap 8, Blood Urea Nitrogen 7, Creatinine 0.96, Estimat Glomerular Filtration Rate 60, BUN/Creatinine Ratio 7, Glucose Level 132H, Calcium Level 7.8L, Phosphorus Level 4.7, Magnesium Level 1.9 Microbiology 12/23/18 Blood Culture - Final, Complete No growth 12/23/18 MRSA Screen - Final, Complete MRSA not isolated 12/24/18 Gram Stain - Final, Complete 12/24/18 Anaerobic Culture - Final, Complete No anaerobes isolated 12/24/18 Surgical Culture - Final, Complete Staphylococcus aureus Assessment/Plan Assessment/Plan Assess & Plan/Chief Complaint 1. Sepsis--improved, WBC count back to normal 2. Pubic Abscess--S/P I and D x2, continue Vanc 3. COPD--back on SVNS with duoneb, started low dose prednisone 4. GERD--on protonix 5. Mood Disorder--back on home meds 6. Edema--oral lasix with potassium started 7. Constipation--improved 8. Weakness--doing PT Clinical Quality Measures Admission Status Admission Dx 1. Acute Sepsis--to ICU on sepsis protocol, currently on levaphed for hypotension, lovenox for DVT prophylaxis 2. Abscess of mons pubis/right labia majora--IV antibiotics and surgical consult for possible I and D 3. COPD--start SVNS with duoneb and IS 4. GERD--start protonix 5. Hyponatremia/electrolyte abnormalities--hydrate per protocol and treat infection and monitor electrolytes DVT/VTE Risk/Contraindication: Risk Factor Score Per Nursin RFS Level Per Nursing on Admit: 3=High GAVIN WAGNER DO Dec 31, 2018 10:03
--- NOTE | 2018-12-31 11:45 | Physical Therapy Daily Note ---
PT Daily Note-Current Subjective Patient agrees to PT. Pain Numeric Pain Scale: 0-No Pain Location: No Pain Reported Mental Status Patient Orientation: Normal For Age Attachments: IV Transfers SCALE: Activities may be completed with or without assistive devices. 9-Rncffvissj-xxzolbf completes the activity by him/herself with no assistance from a helper. 5-Set-up or Clean-up Assistance-helper sets up or cleans up; patient completes activity. [place] assists only prior to or following the activity. 4-Supervision or Touching Assistance-helper provides verbal cues and/or touching/steadying and/or contact guard assistance as patient completes activity. Assistance may be provided throughout the activity or intermittently. 3-Partial/Moderate Assistance-helper does LESS THAN HALF the effort. [place] lifts, holds or supports trunk or limbs, but provides less than half the effort. 2-Substantial/Maximal Assistance-helper does MORE THAN HALF the effort. [place] lifts or holds trunk or limbs and provides more than half the effort. 9-Exqreybbw-witaxr does ALL the effort. Patient does none of the effort to complete the activity. Or, the assistance of 2 or more helpers is required for the patient to complete the activity. If activity was not attempted, code reason: 7-Patient Refused. 9-Not Applicable-not attempted and the patient did not perform the activity before the current illness, exacerbation or injury. 10-Not Attempted due to Environmental Limitations-(lack of equipment, weather restraints, etc.). 88-Not Attempted due to Medical Conditions or Safety Concerns. Roll Left to Right (QC): 6 Sit to Lying (QC): 6 Sit to Stand (QC): 6 Chair/Byt-pv-Tskgk Xfer(QC): 6 Bed to/from Chair: 6 Gait Training Does the Patient Walk?: Yes Distance: 225' Walk 10 feet (QC): 6 Walk 50 ft with 2 Turns(QC): 6 Walk 150 ft (QC): 6 Gait Assistive Device: FWW safe and functional gait sequence with no deviation Assessment Patient is currently at [facility] with all gross motor skills. PT instructed nursing staff to ambulate with patient PRN in hallway. Patient is up ad megha in room currently. PT to dismiss patient from services at this time. PT Jail Goals Tax Manager Public Goals PT Tax Manager Public Goals Time Frame: Jan 05, 2019 Sit to Lying (QC): 6 Lying-Sitting on Side/Bed(QC): 6 Sit to Stand (QC): 6 Roll Left to Right (QC): 6 Chair/Nlp-kg-Twhcu Xfer(QC): 6 Car Transfer (QC): 6 Does the Patient Walk: Yes Distance: 150' Walk 10 feet (QC): 6 Walk 10ft-Uneven Surface(QC): 6 Walk 50ft with 2 Turns (QC): 6 Walk 150 ft (QC): 6 Gait Assistive Device: FWW Picking up an Object (QC): 6 PT Plan Treatment/Plan Treatment Plan: Discontinue PT, goals met Treatment Plan: Bed Mobility, Education, Functional Activity Anton, Functional Strength, Gait, Safety, Therapeutic Exercise, Transfers Treatment Duration: Jan 05, 2019 Frequency: 6 times per week Estimated Hrs Per Day: .25 hour per day Patient and/or Family Agrees t: Yes Time/GCodes Time In: 1000 Time Out: 1011 Total Billed Treatment Time: 11 Total Billed Treatment 1 visit FA 11 min PITA COLBY PT Dec 31, 2018 11:45
[2018-12-31 12:10] VITALS: BP 152/85
[2018-12-31] MEDS ORDERED: RT-ALBUTEROL/IPRATROPIUM 3 ML (DUONEB) VIAL INH PRN (13:45)
[2018-12-31] MEDS ORDERED: RT-ALBUTEROL/IPRATROPIUM 3 ML (DUONEB) VIAL INH SCH (14:00)
[2018-12-31 16:45] VITALS: BP 167/83
[2018-12-31] MEDS ORDERED: TROUGH ORDER-PHARMACY XX NR (17:00)
[2018-12-31] MEDS: VANCOMYCIN INJECTION 1,000 MG in NS (IVPB) 250 ML IV SCH (19:42)
--- NOTE | 2018-12-31 19:50 | Progress Note - Surgery ---
Subjective Date Seen by a Provider: Dec 31, 2018 Time Seen by a Provider: 13:50 Subjective/Events-last exam PATIENT FEELING BETTER. PAIN CONTROLLED. GROIN DOES FEEL LIKE SOME SWELLING GOING DOWN. DENIES N/V FEVER SWEATS CHILLS SHORTNESS OF BREATH OR CHEST PAIN. Focused Exam Time of Focused Exam: 19:58 Objective Exam Vital Signs Date Time Temp Pulse Resp B/P (MAP) Pulse Ox O2 Delivery O2 Flow Rate FiO2 12/31/18 19:06 93 Nasal Cannula 3.00 12/31/18 16:45 36.4 80 20 167/83 (111) 96 Nasal Cannula 3.00 12/31/18 12:10 36.3 86 18 152/85 (107) 97 Nasal Cannula 3.00 12/31/18 10:48 89 Nasal Cannula 3.00 12/31/18 08:00 35.4 79 20 157/78 (104) 94 Nasal Cannula 3.00 12/31/18 08:00 Nasal Cannula 3.00 12/31/18 06:59 94 Nasal Cannula 3.00 12/31/18 05:34 36.6 73 19 157/71 (99) 94 Nasal Cannula 2.00 12/31/18 04:00 36.6 12/31/18 02:51 92 Nasal Cannula 3.00 12/31/18 00:05 36.2 75 19 144/77 (99) 98 Nasal Cannula 2.00 12/30/18 22:22 Nasal Cannula 2.00 12/30/18 22:22 98 Nasal Cannula 3.00 12/30/18 20:10 Nasal Cannula 3.00 I & O 12/31/18 07:00 Intake Total 2160 ml Output Total 2400 ml Balance -240 ml Capillary Refill : Less Than 3 SecondsLess Than 3 Seconds General Appearance: No Apparent Distress HEENT: PERRL/EOMI Neck: Supple Respiratory: Lungs Clear Cardiovascular: Regular Rate, Rhythm Peripheral Pulses: 2+ Radial Pulses (R), 2+ Radial Pulses (L) Gastrointestinal: normal bowel sounds, non tender, soft Extremity: Non Tender, No Calf Tenderness, No Pedal Edema Neurologic/Psychiatric: Alert, Oriented x3 Skin: Warm/Dry, Other (mons and right labia/groin/buttock less erythema/swelling and induration) Lymphatic: No Adenopathy Results Lab Laboratory Tests 12/31/18 05:57: White Blood Count 8.8, Red Blood Count 3.64L, Hemoglobin 11.1L, Hematocrit 34L, Mean Corpuscular Volume 93, Mean Corpuscular Hemoglobin 31, Mean Corpuscular Hemoglobin Concent 33, Red Cell Distribution Width 16.1H, Platelet Count 325, Mean Platelet Volume 9.3, Neutrophils (%) (Auto) 85H, Lymphocytes (%) (Auto) 11L , Monocytes (%) (Auto) 4, Eosinophils (%) (Auto) 0, Basophils (%) (Auto) 0, Neutrophils # (Auto) 7.5, Lymphocytes # (Auto) 1.0, Monocytes # (Auto) 0.4, Eosinophils # (Auto) 0.0, Basophils # (Auto) 0.0, Sodium Level 138, Potassium Level 4.2, Chloride Level 100, Carbon Dioxide Level 30, Anion Gap 8, Blood Urea Nitrogen 7, Creatinine 0.96, Estimat Glomerular Filtration Rate 60, BUN/Creatinine Ratio 7, Glucose Level 132H, Calcium Level 7.8L, Phosphorus Level 4.7, Magnesium Level 1.9 12/31/18 18:00: Vancomycin Level Trough 15.7 Microbiology 12/23/18 Blood Culture - Final, Complete No growth 12/23/18 MRSA Screen - Final, Complete MRSA not isolated 12/30/18 Gram Stain, Resulted Pending 12/30/18 Anaerobic Culture, Resulted Pending 12/30/18 Surgical Culture - Preliminary, Resulted Staphylococcus aureus Assessment/Plan Assessment/Plan Assessment/Plan s/p i and d/debridement mons, right labia and buttock continue abx continue wound care still need to watch closely, may require further surgical intervention Clinical Quality Measures DVT/VTE Risk/Contraindication: Risk Factor Score Per Nursin RFS Level Per Nursing on Admit: 3=High KELSEY MC DO Dec 31, 2018 19:50
[2018-12-31 20:45] VITALS: BP 149/75
[2018-12-31] MEDS: POLYETHYLENE GLYCOL 17 GM (MIRALAX) PACK PO SCH (21:52)
[2019-01-01] VITALS: BP 138/71
--- NOTE | 2019-01-01 02:01 | NUR ---
CONTACTED DR CORTES REGARDING PATIENT ITCHING ALL OVER/ACID REFLUX. ORDER RCV'D FOR BENADRYL 25MG PO Q4H PRN ITCHING. TUMS 500MG PO Q4H PRN HEARTBURN.
[2019-01-01] MEDS ORDERED: CALCIUM CARBONATE 500 MG (TUMS) TAB.CHEW PO PRN (02:15)
[2019-01-01] MEDS ORDERED: CALCIUM CARBONATE 500 MG (TUMS) TAB.CHEW ONE (02:27)
[2019-01-01] MEDS ORDERED: diphenhydrAMINE 25 MG TAB (BENADRYL) PO ONE (02:27)
[2019-01-01] MEDS: diphenhydrAMINE 25 MG TAB (BENADRYL) PO PRN ×4 (02:32→23:10)
[2019-01-01 04:00] VITALS: BP 157/70
[2019-01-01 06:50] LABS: BASOPHILS % (AUTO) 0 % (0-10); EOSINOPHILS # (AUTO) 0.1 10^3/uL (0.0-0.3); EOSINOPHILS % (AUTO) 1 % (0-10); HEMATOCRIT 35 % (35-52); HEMOGLOBIN 11.1 G/DL (11.5-16.0); LYMPHOCYTES # (AUTO) 2.2 X 10^3 (1.0-4.0); LYMPHOCYTES % (AUTO) 27 % (12-44); MEAN CORPUSCULAR HEMOGLOBIN 30 PG (25-34); MEAN CORPUSCULAR HGB CONC 32 G/DL (32-36); MEAN CORPUSCULAR VOLUME 95 FL (80-99); MEAN PLATELET VOLUME 10.5 FL (7.4-10.4); MONOCYTES # (AUTO) 0.7 X 10^3 (0.0-1.0); MONOCYTES % (AUTO) 8 % (0-12); NEUTROPHILS # (AUTO) 5.2 X 10^3 (1.8-7.8); NEUTROPHILS % (AUTO) 64 % (42-75); PLATELET COUNT 153 10^3/uL (130-400); RED CELL DISTRIBUTION WIDTH 16.6 % (10.0-14.5); WHITE BLOOD COUNT 8.1 10^3/uL (4.3-11.0)
[2019-01-01] MEDS: RT-ALBUTEROL/IPRATROPIUM 3 ML (DUONEB) VIAL INH SCH ×2 (06:57→14:40)
[2019-01-01] MEDS: ADVAIR HFA 115/21 MCG INHALER 8 GM IH SCH ×2 (06:57→22:22)
[2019-01-01 07:11] LABS: CALCIUM 8.1 MG/DL (8.5-10.1); CREATININE SERUM 1.03 MG/DL (0.60-1.30); MAGNESIUM 1.7 MG/DL (1.6-2.4); PHOSPHORUS 4.4 MG/DL (2.3-4.7)
[2019-01-01] MEDS: POTASSIUM CL 10MEQ/50ML IVPB 50 ML IV SCH (07:34)
[2019-01-01] MEDS: MAGNESIUM 1 GM/100 ML IVPB 100 ML IV SCH (07:34)
[2019-01-01] MEDS: KCL 20 MEQ TAB (K-DUR) PO SCH ×2 (07:35→07:42)
[2019-01-01] MEDS: predniSONE 20 MG TAB PO SCH (07:45)
[2019-01-01 08:00] VITALS: BP 163/76
[2019-01-01] MEDS: SENNA W/DOCUSATE (SENOKOT S) TABLET PO SCH ×2 (09:45→21:34)
[2019-01-01] MEDS: DULoxetine 30 MG (CYMBALTA) CAP PO SCH ×2 (09:45→21:34)
[2019-01-01] MEDS: ENOXAPARIN 40 MG/0.4 ML (LOVENOX) SYR SC SCH (09:46)
[2019-01-01] MEDS: LEVOTHYROXINE 112 MCG (LEVOTHROID) TAB PO SCH (09:46)
[2019-01-01] MEDS: HYDROcodone/APAP 5 MG/325 MG (LORTAB) TAB PO PRN ×3 (09:46→22:57)
[2019-01-01] MEDS: DOCUSATE SODIUM 100 MG (COLACE) CAP PO SCH ×2 (09:47→21:34)
[2019-01-01] MEDS: DAKIN'S 1/2 STRENGTH (0.25%) 473 ML BTL TOP SCH ×2 (09:47→21:35)
[2019-01-01] MEDS: amLODIPine 5 MG (NORVASC) TAB PO SCH (09:47)
[2019-01-01] MEDS: FLUTICASONE NASAL SPRAY (FLONASE) 16 GM BTL NS SCH (09:47)
[2019-01-01] MEDS: FUROSEMIDE 40 MG (LASIX) TAB PO SCH (09:47)
[2019-01-01] MEDS: LOSARTAN 100 MG (COZAAR) TABLET PO SCH (09:47)
[2019-01-01] MEDS: PANTOPRAZOLE 40 MG (PROTONIX) TAB PO SCH (09:47)
[2019-01-01 12:00] VITALS: BP 157/74
--- NOTE | 2019-01-01 12:19 | Progress Note - Hospitalist ---
Subjective HPI/CC On Admission Date Seen by Provider: Jan 01, 2019 Time Seen by Provider: 12:14 boil Subjective/Events-last exam Pt reports doing better but having itching. Stated two days ago. Noticed rash on thighs this morning. Focused Exam Time of Focused Exam: 19:58 Objective Exam Vital Signs Vital Signs Date Time Temp Pulse Resp B/P (MAP) Pulse Ox O2 Delivery O2 Flow Rate FiO2 01/01/19 10:20 36.5 01/01/19 08:00 Nasal Cannula 3.00 01/01/19 08:00 79 20 163/76 (105) 95 Capillary Refill : Less Than 3 SecondsLess Than 3 Seconds General Appearance: No Apparent Distress, WD/WN Respiratory: Lungs Clear, No Respiratory Distress Cardiovascular: Regular Rate, Rhythm, No Murmur Neurologic/Psychiatric: Alert, Oriented x3, Normal Mood/Affect Skin: Other (urticaria on meridal thighs) Results/Procedures Lab Laboratory Tests 01/01/19 05:46 Patient resulted labs reviewed. Assessment/Plan Assessment and Plan Assess & Plan/Chief Complaint Sepsis 2/2 labial abscess improved s/p I&D on 12/30 OR cultures reveal MRSA Continue Vanc Wound care consulted Allergic Reaction Continue Benadryl Consider IV steroids if needed COPD --MAT Protcol - Continue low dose prednisone GERD on protonix Mood Disorder back on home meds Constipation--resolved Weakness doing PT Consider swing bed if needs continue therapy as may need pipe recovery specialist IV abx and wound vac Clinical Quality Measures DVT/VTE Risk/Contraindication: Risk Factor Score Per Nursin RFS Level Per Nursing on Admit: 3=High DONNA VALDOVINOS MD Jan 01, 2019 12:19 pm
--- NOTE | 2019-01-01 13:19 | Progress Note - Surgery ---
[facility] 01/01/19 1319: Subjective Date Seen by a Provider: Jan 01, 2019 Time Seen by a Provider: 07:50 Subjective/Events-last exam Patient is doing better, Does not complain of any pain. Only complaint is Diffuse pruritus. Was given Benadryl which alleviated the pruritus. Wound around labia had redness due to adhesive tape, otherwise is healing Denies, n/v, abdominal pain, SOB, chest pain, or headaches. Blood pressure is 157/74. Review of Systems General: No Chills, No Other (fever) HEENT: No Head Aches Pulmonary: No Dyspnea Cardiovascular: No: Chest Pain Gastrointestinal: No: Nausea, Vomiting, Abdominal Pain Focused Exam Time of Focused Exam: 19:58 Objective Exam Vital Signs Date Time Temp Pulse Resp B/P (MAP) Pulse Ox O2 Delivery O2 Flow Rate FiO2 01/01/19 10:20 36.5 01/01/19 08:00 Nasal Cannula 3.00 01/01/19 08:00 36.5 79 20 163/76 (105) 95 Nasal Cannula 3.00 01/01/19 04:00 36.4 81 16 157/70 (99) 96 Nasal Cannula 3.00 01/01/19 00:00 36.3 82 20 138/71 (93) 96 Nasal Cannula 3.00 12/31/18 20:45 36.6 88 20 149/75 (99) 93 Nasal Cannula 3.00 12/31/18 20:00 Nasal Cannula 3.00 12/31/18 19:06 93 Nasal Cannula 3.00 12/31/18 16:45 36.4 80 20 167/83 (111) 96 Nasal Cannula 3.00 I & O 01/01/19 07:00 Intake Total 2785 ml Balance 2785 ml Capillary Refill : Less Than 3 SecondsLess Than 3 Seconds General Appearance: No Apparent Distress, WD/WN HEENT: PERRL/EOMI Neck: Supple Respiratory: Chest Non Tender, No Respiratory Distress Cardiovascular: Regular Rate, Rhythm, No JVD Peripheral Pulses: 2+ Radial Pulses (R), 2+ Radial Pulses (L) Gastrointestinal: non tender, soft Extremity: Non Tender, No Calf Tenderness, No Pedal Edema Neurologic/Psychiatric: Alert, Oriented x3, Normal Mood/Affect Skin: Other (Incision of labia major) Lymphatic: No Adenopathy Results Lab Laboratory Tests 12/31/18 18:00: Vancomycin Level Trough 15.7 01/01/19 05:46: White Blood Count 8.1, Red Blood Count 3.66L, Hemoglobin 11.1L, Hematocrit 35, Mean Corpuscular Volume 95, Mean Corpuscular Hemoglobin 30, Mean Corpuscular Hemoglobin Concent 32, Red Cell Distribution Width 16.6H, Platelet Count 153, Mean Platelet Volume 10.5H, Neutrophils (%) (Auto) 64, Lymphocytes (%) (Auto) 27, Monocytes (%) (Auto) 8, Eosinophils (%) (Auto) 1, Basophils (%) (Auto) 0, Neutrophils # (Auto) 5.2, Lymphocytes # (Auto) 2.2, Monocytes # (Auto) 0.7, Eosinophils # (Auto) 0.1, Basophils # (Auto) 0.0, Sodium Level 141, Potassium Level 4.0, Chloride Level 99, Carbon Dioxide Level 30, Anion Gap 12, Blood Urea Nitrogen 9, Creatinine 1.03, Estimat Glomerular Filtration Rate 55, BUN/Creatinine Ratio 9, Glucose Level 76, Calcium Level 8.1L, Phosphorus Level 4.4, Magnesium Level 1.7 Microbiology 12/23/18 Blood Culture - Final, Complete No growth 12/23/18 MRSA Screen - Final, Complete MRSA not isolated 12/30/18 Gram Stain - Final, Resulted 12/30/18 Anaerobic Culture, Resulted Pending 12/30/18 Surgical Culture - Preliminary, Resulted Staphylococcus aureus Assessment/Plan Assessment/Plan Assessment/Plan s/p i and d/debridement mons, right labia and buttock continue wound care still need to watch closely, may require further surgical intervention Hold Vancomycin for possible Drea Syndrome Benadryl as needed. Clinical Quality Measures DVT/VTE Risk/Contraindication: Risk Factor Score Per Nursin RFS Level Per Nursing on Admit: 3=High KELSEY RICH DO 01/02/19 1327: Subjective Subjective/Events-last exam complaints of pruritus but alleviated with benadry. Wounds feels better. No new complaints. Denies n/v fever sweats chills shortness of breath or chest pain Objective Exam General Appearance: No Apparent Distress HEENT: PERRL/EOMI Neck: Supple Respiratory: Chest Non Tender Cardiovascular: Regular Rate, Rhythm Gastrointestinal: non tender, soft Extremity: Non Tender, No Calf Tenderness Neurologic/Psychiatric: Oriented x3, Normal Mood/Affect Skin: Other (mons, right labia/buttock, wound clean no purulent drainage, less induration) Lymphatic: No Adenopathy Assessment/Plan Assessment/Plan Assessment/Plan cellulitis/s/p i and d debridement x 2 of mons, right labia and buttock continue wound care improving home soon Supervisory-Addendum Brief Verification & Attestation Participated in pt care: history, MDM, physical Personally performed: exam, history, MDM, supervision of care Care discussed with: Medical Student Procedures: n/a Results interpretation: Verified all documentation Verification and Attestation of Medical Student E/M Service A medical student performed and documented this service in my presence. I reviewed and verified all information documented by the medical student and made modifications to such information, when appropriate. I personally performed the physical exam and medical decision making. Kelsey Rich, Jan 01, 2019,13:28 [facility] Jan 01, 2019 13:19 KELSEY RICH DO Jan 02, 2019 13:27
[2019-01-01 17:29] VITALS: BP 147/81
[2019-01-01] MEDS: VANCOMYCIN INJECTION 1,000 MG in NS (IVPB) 250 ML IV SCH (17:45)
[2019-01-01 21:00] VITALS: BP 145/82
[2019-01-01] MEDS: POLYETHYLENE GLYCOL 17 GM (MIRALAX) PACK PO SCH (21:34)
[2019-01-02] VITALS: BP 162/74
[2019-01-02 04:00] VITALS: BP 161/76
[2019-01-02] MEDS: diphenhydrAMINE 25 MG TAB (BENADRYL) PO PRN ×2 (04:37→22:28)
[2019-01-02 05:53] LABS: BASOPHILS % (AUTO) 0 % (0-10); EOSINOPHILS # (AUTO) 0.4 10^3/uL (0.0-0.3); EOSINOPHILS % (AUTO) 4 % (0-10); HEMATOCRIT 35 % (35-52); HEMOGLOBIN 11.2 G/DL (11.5-16.0); LYMPHOCYTES # (AUTO) 2.4 X 10^3 (1.0-4.0); LYMPHOCYTES % (AUTO) 27 % (12-44); MEAN CORPUSCULAR HEMOGLOBIN 30 PG (25-34); MEAN CORPUSCULAR HGB CONC 32 G/DL (32-36); MEAN CORPUSCULAR VOLUME 95 FL (80-99); MEAN PLATELET VOLUME 10.2 FL (7.4-10.4); MONOCYTES # (AUTO) 0.6 X 10^3 (0.0-1.0); MONOCYTES % (AUTO) 6 % (0-12); NEUTROPHILS # (AUTO) 5.5 X 10^3 (1.8-7.8); NEUTROPHILS % (AUTO) 62 % (42-75); PLATELET COUNT 305 10^3/uL (130-400); RED CELL DISTRIBUTION WIDTH 16.4 % (10.0-14.5); WHITE BLOOD COUNT 8.8 10^3/uL (4.3-11.0)
[2019-01-02 06:16] LABS: CALCIUM 8.2 MG/DL (8.5-10.1); CREATININE SERUM 1.24 MG/DL (0.60-1.30); MAGNESIUM 1.7 MG/DL (1.6-2.4); PHOSPHORUS 4.5 MG/DL (2.3-4.7); POTASSIUM 3.7 MMOL/L (3.6-5.0)
[2019-01-02] MEDS: POTASSIUM CL 10MEQ/50ML IVPB 50 ML IV SCH (06:18)
[2019-01-02] MEDS: MAGNESIUM 1 GM/100 ML IVPB 100 ML IV SCH (06:19)
[2019-01-02] MEDS: KCL 20 MEQ TAB (K-DUR) PO SCH ×2 (06:19→06:37)
[2019-01-02] MEDS: predniSONE 20 MG TAB PO SCH (06:37)
[2019-01-02] MEDS: RT-ALBUTEROL/IPRATROPIUM 3 ML (DUONEB) VIAL INH SCH ×3 (07:27→22:39)
[2019-01-02] MEDS: ADVAIR HFA 115/21 MCG INHALER 8 GM IH SCH ×2 (07:29→22:00)
[2019-01-02 08:00] VITALS: BP 174/82
[2019-01-02] MEDS: DOCUSATE SODIUM 100 MG (COLACE) CAP PO SCH ×2 (08:29→21:22)
[2019-01-02] MEDS: ENOXAPARIN 40 MG/0.4 ML (LOVENOX) SYR SC SCH (08:29)
[2019-01-02] MEDS: SENNA W/DOCUSATE (SENOKOT S) TABLET PO SCH ×2 (08:29→21:23)
[2019-01-02] MEDS: LOSARTAN 100 MG (COZAAR) TABLET PO SCH (08:30)
[2019-01-02] MEDS: amLODIPine 5 MG (NORVASC) TAB PO SCH (08:30)
[2019-01-02] MEDS: FUROSEMIDE 40 MG (LASIX) TAB PO SCH (08:30)
[2019-01-02] MEDS ORDERED: methylPREDNISolone 125 MG (Solu-MEDROL) VIAL IVP NR (08:30)
[2019-01-02] MEDS: PANTOPRAZOLE 40 MG (PROTONIX) TAB PO SCH (08:30)
[2019-01-02] MEDS: DULoxetine 30 MG (CYMBALTA) CAP PO SCH ×2 (08:30→21:23)
--- NOTE | 2019-01-02 08:34 | Progress Note - Hospitalist ---
Subjective HPI/CC On Admission Date Seen by Provider: Jan 02, 2019 Time Seen by Provider: 08:32 boil Subjective/Events-last exam Pt reports worsening rash. Benadryl helping with itching but hives spreading. Focused Exam Time of Focused Exam: 19:58 Objective Exam Vital Signs Vital Signs Date Time Temp Pulse Resp B/P (MAP) Pulse Ox O2 Delivery O2 Flow Rate FiO2 01/02/19 07:32 Nasal Cannula 3.00 01/02/19 07:27 87 01/02/19 04:00 36.3 82 14 161/76 (104) Capillary Refill : Less Than 3 SecondsLess Than 3 Seconds General Appearance: No Apparent Distress, WD/WN Respiratory: Lungs Clear, No Respiratory Distress Cardiovascular: Regular Rate, Rhythm, No Murmur Neurologic/Psychiatric: Alert, Oriented x3, Normal Mood/Affect Skin: Other (urticaria noted on medial thighs, worse than yesterday and excoriations noted on arms and legs) Results/Procedures Lab Laboratory Tests 01/02/19 05:15 Patient resulted labs reviewed. Assessment/Plan Assessment and Plan Assess & Plan/Chief Complaint Sepsis 2/2 labial abscess improving s/p I&D on 12/30 OR cultures reveal MRSA Continue Vanc Wound care consulted Allergic Reaction with urticaria Continue Benadryl Solumedrol Claritin added COPD --MAT Protcol - Continue low dose prednisone GERD on protonix Mood Disorder back on home meds Constipation--resolved Weakness doing PT Consider swing bed if needs continue therapy as may need [facility] IV abx and wound vac Clinical Quality Measures DVT/VTE Risk/Contraindication: Risk Factor Score Per Nursin RFS Level Per Nursing on Admit: 3=High DONNA VALDOVINOS MD Jan 02, 2019 8:34 am
[2019-01-02] MEDS: FLUTICASONE NASAL SPRAY (FLONASE) 16 GM BTL NS SCH (08:35)
[2019-01-02] MEDS: LEVOTHYROXINE 112 MCG (LEVOTHROID) TAB PO SCH (09:51)
[2019-01-02] MEDS: LORATADINE (CLARITIN) 10 MG TAB PO SCH (09:51)
[2019-01-02] MEDS: DAKIN'S 1/2 STRENGTH (0.25%) 473 ML BTL TOP SCH ×2 (10:16→21:25)
--- NOTE | 2019-01-02 10:56 | Progress Note - Surgery ---
[facility] 01/02/19 1056: Subjective Date Seen by a Provider: Jan 02, 2019 Time Seen by a Provider: 08:15 Subjective/Events-last exam Patient is feeling much better. Patient states that this morning she had diffuse pruritus with a rash. She received appropriate medication and the symptoms have since resolved. She does not complain of any pain. Patient denies sob, chest pain, n/v, abdominal pain, fevers or chills. Review of Systems General: No Chills, No Other (fevers) Pulmonary: No Dyspnea Cardiovascular: No: Chest Pain Gastrointestinal: No: Nausea, Vomiting, Abdominal Pain Focused Exam Time of Focused Exam: 19:58 Objective Exam Vital Signs Date Time Temp Pulse Resp B/P (MAP) Pulse Ox O2 Delivery O2 Flow Rate FiO2 01/02/19 08:00 37.1 83 20 174/82 (112) 95 Nasal Cannula 3.00 01/02/19 08:00 Nasal Cannula 2.00 01/02/19 07:32 Nasal Cannula 3.00 01/02/19 07:27 87 Room Air 01/02/19 04:00 36.3 82 14 161/76 (104) 95 Nasal Cannula 3.00 01/02/19 00:00 36.2 82 16 162/74 (103) 94 Nasal Cannula 3.00 01/01/19 22:19 97 Nasal Cannula 3.00 01/01/19 21:00 36.5 79 14 145/82 (103) 96 Nasal Cannula 3.00 01/01/19 20:00 Nasal Cannula 3.00 01/01/19 17:29 36.0 77 14 147/81 (103) 94 Room Air 01/01/19 14:40 95 Nasal Cannula 3.00 01/01/19 12:00 36.2 76 20 157/74 (101) 94 Nasal Cannula 3.00 I & O 01/02/19 06:59 Intake Total 3570 ml Output Total 2 ml Balance 3568 ml Capillary Refill : Less Than 3 SecondsLess Than 3 Seconds General Appearance: No Apparent Distress, WD/WN HEENT: PERRL/EOMI Neck: Supple Respiratory: Chest Non Tender, No Accessory Muscle Use, No Respiratory Distress Cardiovascular: Regular Rate, Rhythm, No Edema Gastrointestinal: non tender, soft Neurologic/Psychiatric: Alert, Oriented x3, Normal Mood/Affect Lymphatic: No Adenopathy Results Lab Laboratory Tests 01/02/19 05:15: White Blood Count 8.8, Red Blood Count 3.68L, Hemoglobin 11.2L, Hematocrit 35, Mean Corpuscular Volume 95, Mean Corpuscular Hemoglobin 30, Mean Corpuscular Hemoglobin Concent 32, Red Cell Distribution Width 16.4H, Platelet Count 305, Mean Platelet Volume 10.2, Neutrophils (%) (Auto) 62, Lymphocytes (%) (Auto) 27, Monocytes (%) (Auto) 6, Eosinophils (%) (Auto) 4, Basophils (%) (Auto) 0, Neutrophils # (Auto) 5.5, Lymphocytes # (Auto) 2.4, Monocytes # (Auto) 0.6, Eosinophils # (Auto) 0.4H, Basophils # (Auto) 0.0, Sodium Level 138, Potassium Level 3.7, Chloride Level 97L, Carbon Dioxide Level 31, Anion Gap 10, Blood Urea Nitrogen 10, Creatinine 1.24, Estimat Glomerular Filtration Rate 45, BUN/Creatinine Ratio 8, Glucose Level 96, Calcium Level 8.2L, Phosphorus Level 4.5, Magnesium Level 1.7 Microbiology 12/23/18 Blood Culture - Final, Complete No growth 12/23/18 MRSA Screen - Final, Complete MRSA not isolated 12/30/18 Gram Stain - Final, Resulted 12/30/18 Anaerobic Culture, Resulted Pending 12/30/18 Surgical Culture - Final, Resulted Staphylococcus aureus Assessment/Plan Assessment/Plan Assessment/Plan s/p i and d/debridement mons, right labia and buttock continue wound care still need to watch closely, may require further surgical intervention Hold Vancomycin for possible Drea Syndrome Benadryl as needed. Encourage incentive spirometer Clinical Quality Measures DVT/VTE Risk/Contraindication: Risk Factor Score Per Nursin RFS Level Per Nursing on Admit: 3=High KELSEY RICH DO 01/02/19 1334: Subjective Subjective/Events-last exam Patient no new complaints. Has some pruritus but better. right groin continues to feel better. denies n/v fever sweats chills shortness of breath or chest pain. Objective Exam General Appearance: No Apparent Distress, WD/WN HEENT: PERRL/EOMI Respiratory: Chest Non Tender Cardiovascular: Regular Rate, Rhythm Gastrointestinal: non tender, soft Neurologic/Psychiatric: Alert, Oriented x3 Skin: Other (right groin less erythema and induration, wound clean) Lymphatic: No Adenopathy Assessment/Plan Assessment/Plan Assessment/Plan cellulitis s/p i and d debridement mons right labia and buttock x 2 patient overall improving continue wound [facility] soon pain control Supervisory-Addendum Brief Verification & Attestation Participated in pt care: history, MDM, physical Personally performed: exam, history, MDM, supervision of care Care discussed with: Medical Student Procedures: n/a Results interpretation: Verified all documentation Verification and Attestation of Medical Student E/M Service A medical student performed and documented this service in my presence. I reviewed and verified all information documented by the medical student and made modifications to such information, when appropriate. I personally performed the physical exam and medical decision making. Kelsey Rich, Jan 02, 2019,13:34 [facility] Jan 02, 2019 10:56 KELSEY RICH DO Jan 02, 2019 13:34
[2019-01-02 16:00] VITALS: BP 138/81
[2019-01-02] MEDS: VANCOMYCIN INJECTION 1,000 MG in NS (IVPB) 250 ML IV SCH (16:30)
[2019-01-02] MEDS: POLYETHYLENE GLYCOL 17 GM (MIRALAX) PACK PO SCH (21:23)
[2019-01-02] MEDS: HYDROcodone/APAP 5 MG/325 MG (LORTAB) TAB PO PRN (22:25)
[2019-01-03 00:02] VITALS: BP 156/78
[2019-01-03] MEDS: predniSONE 20 MG TAB PO SCH (06:10)
[2019-01-03] MEDS: KCL 20 MEQ TAB (K-DUR) PO SCH ×2 (06:10→08:35)
[2019-01-03] MEDS: DAKIN'S 1/2 STRENGTH (0.25%) 473 ML BTL TOP SCH (06:48)
[2019-01-03 06:57] LABS: BASOPHILS % (AUTO) 0 % (0-10); EOSINOPHILS # (AUTO) 0.1 10^3/uL (0.0-0.3); EOSINOPHILS % (AUTO) 1 % (0-10); HEMATOCRIT 35 % (35-52); HEMOGLOBIN 11.4 G/DL (11.5-16.0); LYMPHOCYTES # (AUTO) 2.6 X 10^3 (1.0-4.0); LYMPHOCYTES % (AUTO) 23 % (12-44); MEAN CORPUSCULAR HEMOGLOBIN 30 PG (25-34); MEAN CORPUSCULAR HGB CONC 32 G/DL (32-36); MEAN CORPUSCULAR VOLUME 93 FL (80-99); MEAN PLATELET VOLUME 8.9 FL (7.4-10.4); MONOCYTES # (AUTO) 0.7 X 10^3 (0.0-1.0); MONOCYTES % (AUTO) 6 % (0-12); NEUTROPHILS # (AUTO) 7.9 X 10^3 (1.8-7.8); NEUTROPHILS % (AUTO) 71 % (42-75); PLATELET COUNT 353 10^3/uL (130-400); RED CELL DISTRIBUTION WIDTH 16.1 % (10.0-14.5); WHITE BLOOD COUNT 11.2 10^3/uL (4.3-11.0)
[2019-01-03] MEDS: RT-ALBUTEROL/IPRATROPIUM 3 ML (DUONEB) VIAL INH SCH ×2 (07:06→14:54)
[2019-01-03] MEDS: ADVAIR HFA 115/21 MCG INHALER 8 GM IH SCH (07:08)
[2019-01-03 07:13] LABS: CALCIUM 8.5 MG/DL (8.5-10.1); CREATININE SERUM 1.22 MG/DL (0.60-1.30); MAGNESIUM 1.4 MG/DL (1.6-2.4); PHOSPHORUS 4.2 MG/DL (2.3-4.7); POTASSIUM 3.3 MMOL/L (3.6-5.0)
[2019-01-03] MEDS: diphenhydrAMINE 25 MG TAB (BENADRYL) PO PRN (07:13)
[2019-01-03 08:00] VITALS: BP 143/66
[2019-01-03] MEDS: POTASSIUM CL 10MEQ/50ML IVPB 50 ML IV SCH (08:16)
[2019-01-03] MEDS: MAGNESIUM 1 GM/100 ML IVPB 100 ML IV SCH (08:31)
[2019-01-03] MEDS: ENOXAPARIN 40 MG/0.4 ML (LOVENOX) SYR SC SCH (08:35)
[2019-01-03] MEDS: FLUTICASONE NASAL SPRAY (FLONASE) 16 GM BTL NS SCH (08:35)
[2019-01-03] MEDS: amLODIPine 5 MG (NORVASC) TAB PO SCH (08:36)
[2019-01-03] MEDS: DOCUSATE SODIUM 100 MG (COLACE) CAP PO SCH (08:36)
[2019-01-03] MEDS: SENNA W/DOCUSATE (SENOKOT S) TABLET PO SCH (08:36)
[2019-01-03] MEDS: LORATADINE (CLARITIN) 10 MG TAB PO SCH (08:36)
[2019-01-03] MEDS: HYDROcodone/APAP 5 MG/325 MG (LORTAB) TAB PO PRN ×2 (08:36→17:12)
[2019-01-03] MEDS: DULoxetine 30 MG (CYMBALTA) CAP PO SCH (08:36)
[2019-01-03] MEDS: FUROSEMIDE 40 MG (LASIX) TAB PO SCH (08:36)
[2019-01-03] MEDS: LOSARTAN 100 MG (COZAAR) TABLET PO SCH (08:36)
[2019-01-03] MEDS: PANTOPRAZOLE 40 MG (PROTONIX) TAB PO SCH (08:37)
[2019-01-03] MEDS: LEVOTHYROXINE 112 MCG (LEVOTHROID) TAB PO SCH (08:41)
[2019-01-03] MEDS ORDERED: LINE600T5 PO (12:36)
[2019-01-03] MEDS ORDERED: ACHD5005 PO (12:40)
[2019-01-03] MEDS ORDERED: MAGN400C PO (12:40)
[2019-01-03] MEDS ORDERED: POTA20TA8 PO (12:40)
--- NOTE | 2019-01-03 14:12 | NUR ---
CM/SS spoke with the patient for discharge planning. Patient is hopeful she will be able to discharge this day. She wants HHC at discharge. She is unsure of with whom in [facility], but knows that she is not wanting [facility]. Will make arrangements for the HHC at discharge.
[2019-01-03 16:00] VITALS: BP 147/78
--- NOTE | 2019-01-03 17:12 | Discharge Inst-Simple/Standard ---
Discharge Inst-Standard Discharge Medications New, Converted or Re-Newed RX: RX on Chart Patient Instructions/Follow Up Plan of Care/Instructions/FU: Daily wound care needed. See Dr. Rich office tomorrow 01/03/19 for wound care. Follow up Dr. Rich appointment [address] Edwards in next 2 weeks. Any issues be seen at that time. Need daily dressing change and as needed. Activity as Tolerated: No Discharge Diet: Regular Diet Other Inst to Patient Follow up Appt: Daily wound care needed. See Dr. Rich office tomorrow 01/03/19 for wound care. They will help arrange wound care arrangements as well. Follow up Dr. Rich appointment [address] Edwards in next 2 weeks. Any issues be seen at that time. Take all medications as prescribed. Instructions: No lifting greater than 10 pounds. No strenuous activity. May shower, no tub bath or soaking. Use incentive spirometer at home as directed. No Smoking Skin/Wound Care: Wound care as above, keep area clean and dry. Symptoms to Report: Appetite Changes, Extremity Discoloration, Numbness/Tingling, Swelling Increased, Bleeding Excessive, Eyesight Changes, Pain Increased, Urine Color Change, Constipation(Persistent), Fever over 101 degree F, Pain/Pressure in chest, Urinating Difficulty, Cough Up/Vomit Blood, Heart Beat Irreg/Pounding, Pain/Pressure in jaw, Vaginal Bleeding Increase, Cramps in feet or legs, Lightheadedness, Pain/Pressure in shoulder, Diarrhea(Persistent), Memory Changes Suddenly, Questions/Concerns, Weight gain consecutive days, Dizziness/Fainting, Nausea/Vomiting, Shortness of Breath, Weight gain over 2 pounds If questions or concerns contact your physician Or seek help at emergency department. Planned Outpatient Orders/Ref. Pneu Vac Indicated: Yes KELSEY RICH DO Jan 03, 2019 17:12
[2019-01-03] MEDS ORDERED: FLU QUADRIvalent (5+ YOA) 2019-2020 (AFLURIA) 0.5 ML IM ONE (17:15)
--- NOTE | 2019-01-03 17:16 | Progress Note - Surgery ---
Subjective Date Seen by a Provider: Jan 03, 2019 Time Seen by a Provider: 09:11 Subjective/Events-last exam Patient doing well. Hoping to go home. Pain controlled. Wound improving. No new complaints. Denies n/v fever sweats chills shortness of breath or chest pain. Focused Exam Time of Focused Exam: 19:58 Objective Exam Vital Signs Date Time Temp Pulse Resp B/P (MAP) Pulse Ox O2 Delivery O2 Flow Rate FiO2 01/03/19 16:00 35.8 83 20 147/78 (101) 93 Nasal Cannula 3.00 01/03/19 14:54 96 Nasal Cannula 3.00 01/03/19 08:00 Nasal Cannula 2.00 01/03/19 08:00 36.0 91 20 143/66 (91) 93 Nasal Cannula 3.00 01/03/19 07:06 96 Nasal Cannula 3.00 01/03/19 00:02 36.4 84 18 156/78 (104) 96 Nasal Cannula 3.00 01/02/19 22:06 Nasal Cannula 3.00 01/02/19 22:00 96 Nasal Cannula 3.00 01/02/19 21:20 Nasal Cannula 2.00 I & O 01/03/19 07:00 Intake Total 3400 ml Balance 3400 ml Capillary Refill : Less Than 3 SecondsLess Than 3 Seconds General Appearance: No Apparent Distress, WD/WN HEENT: PERRL/EOMI Neck: Supple Respiratory: Chest Non Tender Cardiovascular: Regular Rate, Rhythm Gastrointestinal: non tender, soft Extremity: Non Tender, No Calf Tenderness Neurologic/Psychiatric: Alert, Oriented x3 Skin: Other (right groin minimal erythema and induration, wound clean) Lymphatic: No Adenopathy Results Lab Laboratory Tests 01/03/19 06:35: White Blood Count 11.2H, Red Blood Count 3.82L, Hemoglobin 11.4L, Hematocrit 35, Mean Corpuscular Volume 93, Mean Corpuscular Hemoglobin 30, Mean Corpuscular Hemoglobin Concent 32, Red Cell Distribution Width 16.1H, Platelet Count 353, Mean Platelet Volume 8.9, Neutrophils (%) (Auto) 71, Lymphocytes (%) (Auto) 23, Monocytes (%) (Auto) 6, Eosinophils (%) (Auto) 1, Basophils (%) (Auto) 0, Neutrophils # (Auto) 7.9H, Lymphocytes # (Auto) 2.6, Monocytes # (Auto) 0.7, Eosinophils # (Auto) 0.1, Basophils # (Auto) 0.0, Sodium Level 138, Potassium Level 3.3L, Chloride Level 96L, Carbon Dioxide Level 30, Anion Gap 12, Blood Urea Nitrogen 12, Creatinine 1.22, Estimat Glomerular Filtration Rate 45, BUN /Creatinine Ratio 10, Glucose Level 98, Calcium Level 8.5, Phosphorus Level 4.2, Magnesium Level 1.4L Microbiology 12/23/18 Blood Culture - Final, Complete No growth 12/23/18 MRSA Screen - Final, Complete MRSA not isolated 12/30/18 Gram Stain - Final, Resulted 12/30/18 Anaerobic Culture - Preliminary, Resulted No anaerobes isolated 12/30/18 Surgical Culture - Final, Resulted Staphylococcus aureus Assessment/Plan Assessment/Plan Assessment/Plan cellulitis s/p i and d debridement mons right labia and buttock x 2 patient overall improving continue wound snf today with close outpatient follow up. Discussed with Dr. Edwards and in agreement. Patient understands plan. She would like to be seen in the wound care clinic as well. Which she has been a patient of theirs before. Due to the complexity of the wound I feel it would be a good idea to have them help with the management. Would also consider placing a wound vac. pain control Clinical Quality Measures DVT/VTE Risk/Contraindication: Risk Factor Score Per Nursin RFS Level Per Nursing on Admit: 3=High KELSEY MC DO Jan 03, 2019 17:16
--- NOTE | 2019-01-03 18:34 | Progress Note ---
Subjective Date Seen by a Provider: Jan 03, 2019 Time Seen by a Provider: 12:30 Subjective/Events-last exam Fwup sepsis, pubic abscess, COPD, GERD, mood disorder. Pubic area much better. Wants to go home--states is okay with surgery. Focused Exam Time of Focused Exam: 19:58 Objective Exam Vital Signs Date Time Temp Pulse Resp B/P (MAP) Pulse Ox O2 Delivery O2 Flow Rate FiO2 01/03/19 16:00 35.8 83 20 147/78 (101) 93 Nasal Cannula 3.00 01/03/19 14:54 96 Nasal Cannula 3.00 01/03/19 08:00 Nasal Cannula 2.00 01/03/19 08:00 36.0 91 20 143/66 (91) 93 Nasal Cannula 3.00 01/03/19 07:06 96 Nasal Cannula 3.00 01/03/19 00:02 36.4 84 18 156/78 (104) 96 Nasal Cannula 3.00 01/02/19 22:06 Nasal Cannula 3.00 01/02/19 22:00 96 Nasal Cannula 3.00 01/02/19 21:20 Nasal Cannula 2.00 I & O0 01/03/19 07:00 Intake Total 3400 ml Balance 3400 ml Capillary Refill : Less Than 3 SecondsLess Than 3 Seconds General Appearance: No Apparent Distress Cardiovascular: Regular Rate, Rhythm Gastrointestinal: normal bowel sounds, non tender, soft Extremity: Non Tender, No Calf Tenderness, No Pedal Edema Neurologic/Psychiatric: Alert, Oriented x3 Skin: Warm/Dry, Other (right mons pubis/labial abscess with minimal induration/no erythema and good granulation tissue) Results Lab Laboratory Tests 01/03/19 06:35: White Blood Count 11.2H, Red Blood Count 3.82L, Hemoglobin 11.4L, Hematocrit 35, Mean Corpuscular Volume 93, Mean Corpuscular Hemoglobin 30, Mean Corpuscular Hemoglobin Concent 32, Red Cell Distribution Width 16.1H, Platelet Count 353, Mean Platelet Volume 8.9, Neutrophils (%) (Auto) 71, Lymphocytes (%) (Auto) 23, Monocytes (%) (Auto) 6, Eosinophils (%) (Auto) 1, Basophils (%) (Auto) 0, Neutrophils # (Auto) 7.9H, Lymphocytes # (Auto) 2.6, Monocytes # (Auto) 0.7, Eosinophils # (Auto) 0.1, Basophils # (Auto) 0.0, Sodium Level 138, Potassium Level 3.3L, Chloride Level 96L, Carbon Dioxide Level 30, Anion Gap 12, Blood Urea Nitrogen 12, Creatinine 1.22, Estimat Glomerular Filtration Rate 45, BUN /Creatinine Ratio 10, Glucose Level 98, Calcium Level 8.5, Phosphorus Level 4.2, Magnesium Level 1.4L Microbiology 12/23/18 Blood Culture - Final, Complete No growth 12/23/18 MRSA Screen - Final, Complete MRSA not isolated 12/30/18 Gram Stain - Final, Resulted 12/30/18 Anaerobic Culture - Preliminary, Resulted No anaerobes isolated 12/30/18 Surgical Culture - Final, Resulted Staphylococcus aureus Assessment/Plan Assessment/Plan Assess & Plan/Chief Complaint 1. Sepsis--improved 2. Pubic Abscess--S/P I and D x2, home on Zyvox with outpatient wound care 3. COPD--stable 4. GERD--on protonix 5. Mood Disorder--back on home meds 6. Edema--improved 7. Constipation--improved 8. Weakness--improving Clinical Quality Measures Admission Status Admission Dx 1. Acute Sepsis--to ICU on sepsis protocol, currently on levaphed for hypote nsion, lovenox for DVT prophylaxis 2. Abscess of mons pubis/right labia majora--IV antibiotics and surgical consult for possible I and D 3. COPD--start SVNS with duoneb and IS 4. GERD--start protonix 5. Hyponatremia/electrolyte abnormalities--hydrate per protocol and treat infection and monitor electrolytes DVT/VTE Risk/Contraindication: Risk Factor Score Per Nursin RFS Level Per Nursing on Admit: 3=High GAVIN WAGNER DO Jan 03, 2019 18:34
== END 2019-01-03 20:05 | disposition home or self-care (01) | DRG 853 ==
LOC: EDUNIT# 18:21 → ER 18:22 → ICU 19:44 → 4TH 12-27 11:24
PROVIDERS: ADMIT Family Medicine; ATTEND Family Medicine
PROC: 0J5 Subcutaneous Tissue and Fascia, Destruction (ICD-10-PCS; 2018-12-24)
PROC: 0J5 Subcutaneous Tissue and Fascia, Destruction (ICD-10-PCS; principal; 2018-12-24 12:48)
PROC: 0JBB0ZZ Excision of Perineum Subcutaneous Tissue and Fascia, Open Approach (ICD-10-PCS; 2018-12-30)
PROC: 0JB90ZZ Excision of Buttock Subcutaneous Tissue and Fascia, Open Approach (ICD-10-PCS; 2018-12-30)
DX: A41.02 Sepsis due to Methicillin resistant Staphylococcus aureus (principal); R65.21 Severe sepsis with septic shock; L02.215 Cutaneous abscess of perineum; N76.4 Abscess of vulva; L02.31 Cutaneous abscess of buttock; E87.1 Hypo-osmolality and hyponatremia; N17.9 Acute kidney failure, unspecified; I95.9 Hypotension, unspecified; J44.9 Chronic obstructive pulmonary disease, unspecified; I10 Essential (primary) hypertension; L50.0 Allergic urticaria; F17.210 Nicotine dependence, cigarettes, uncomplicated; J30.2 Other seasonal allergic rhinitis; R53.1 Weakness; E89.0 Postprocedural hypothyroidism; G43.909 Migraine, unspecified, not intractable, without status migrainosus; G62.9 Polyneuropathy, unspecified; K21.9 Gastro-esophageal reflux disease without esophagitis; M19.91 Primary osteoarthritis, unspecified site; F41.9 Anxiety disorder, unspecified; F32.9 Major depressive disorder, single episode, unspecified; E66.9 Obesity, unspecified; Z68.35 Body mass index [BMI] 35.0-35.9, adult; K59.00 Constipation, unspecified; E87.6 Hypokalemia; E83.42 Hypomagnesemia; Z99.81 Dependence on supplemental oxygen; Z23 Encounter for immunization
CPT/HCPCS: 36415; 71045; 74176; 76937; 76999; 80048; 80053; 80202; 82962; 83605; 83735; 84100; 84484; 85007; 85025; 85027; 87040; 87070; 87075; 87077; 87081; 87186; 87205; 93005; 94640; 94664; 94760; 96374

== ENCOUNTER → 2019-01-10 | Outpatient (CLI) | payer OTHER, MEDICAID ==
[~2019-01-10] MED LIST changes: +ACHD5005 PO; +CYAN500T44 PO; +LINE600T5 PO; +MAGN400C PO; +POTA20TA8 PO
== END ==
LOC: WOUNDCARE 13:50
PROVIDERS: ATTEND Surgery
DX: I96 Gangrene, not elsewhere classified (principal); L98.492 Non-pressure chronic ulcer of skin of other sites with fat layer exposed; L02.215 Cutaneous abscess of perineum; T65.222A Toxic effect of tobacco cigarettes, intentional self-harm, initial encounter; J44.9 Chronic obstructive pulmonary disease, unspecified; E66.01 Morbid (severe) obesity due to excess calories
CPT/HCPCS: 99213

== ENCOUNTER → 2019-01-17 | Outpatient (CLI) | payer OTHER, MEDICAID | LOC: WOUNDCARE 11:03 | PROVIDERS: ATTEND Surgery | DX: I96 Gangrene, not elsewhere classified (principal); L98.492 Non-pressure chronic ulcer of skin of other sites with fat layer exposed; L02.215 Cutaneous abscess of perineum; T65.222A Toxic effect of tobacco cigarettes, intentional self-harm, initial encounter; J44.9 Chronic obstructive pulmonary disease, unspecified; E66.01 Morbid (severe) obesity due to excess calories | CPT/HCPCS: 99213 ==

== ENCOUNTER → 2019-01-24 | Outpatient (CLI) | payer OTHER, MEDICAID | LOC: WOUNDCARE 11:40 | PROVIDERS: ATTEND Surgery | DX: L98.492 Non-pressure chronic ulcer of skin of other sites with fat layer exposed (principal); L02.215 Cutaneous abscess of perineum; T65.222A Toxic effect of tobacco cigarettes, intentional self-harm, initial encounter; J44.9 Chronic obstructive pulmonary disease, unspecified; E66.01 Morbid (severe) obesity due to excess calories; I96 Gangrene, not elsewhere classified | CPT/HCPCS: 99213 ==

== ENCOUNTER → 2019-01-31 | Outpatient (CLI) | payer OTHER, MEDICAID | LOC: WOUNDCARE 11:03 | PROVIDERS: ATTEND Surgery | DX: L98.492 Non-pressure chronic ulcer of skin of other sites with fat layer exposed (principal); L02.215 Cutaneous abscess of perineum; J44.9 Chronic obstructive pulmonary disease, unspecified; E66.01 Morbid (severe) obesity due to excess calories; T65.222A Toxic effect of tobacco cigarettes, intentional self-harm, initial encounter; I96 Gangrene, not elsewhere classified | CPT/HCPCS: 99213 ==

== ENCOUNTER → 2019-02-07 | Outpatient (CLI) | payer OTHER, MEDICAID | LOC: WOUNDCARE 11:07 | PROVIDERS: ATTEND Surgery | DX: L98.492 Non-pressure chronic ulcer of skin of other sites with fat layer exposed (principal); L02.215 Cutaneous abscess of perineum; T65.222A Toxic effect of tobacco cigarettes, intentional self-harm, initial encounter; J44.9 Chronic obstructive pulmonary disease, unspecified; E66.01 Morbid (severe) obesity due to excess calories; I96 Gangrene, not elsewhere classified | CPT/HCPCS: 99212 ==

== ENCOUNTER → 2019-02-14 | Outpatient (CLI) | payer OTHER, MEDICAID | LOC: WOUNDCARE 10:32 | PROVIDERS: ATTEND Surgery | DX: I96 Gangrene, not elsewhere classified (principal); L98.492 Non-pressure chronic ulcer of skin of other sites with fat layer exposed; L02.215 Cutaneous abscess of perineum; T65.222A Toxic effect of tobacco cigarettes, intentional self-harm, initial encounter; J44.9 Chronic obstructive pulmonary disease, unspecified; F17.218 Nicotine dependence, cigarettes, with other nicotine-induced disorders; E66.01 Morbid (severe) obesity due to excess calories | CPT/HCPCS: 99213 ==

== ENCOUNTER → 2019-02-21 | Outpatient (CLI) | payer OTHER, MEDICAID | LOC: WOUNDCARE 11:13 | PROVIDERS: ATTEND Surgery | DX: I96 Gangrene, not elsewhere classified (principal); L98.492 Non-pressure chronic ulcer of skin of other sites with fat layer exposed; L02.215 Cutaneous abscess of perineum; T65.222A Toxic effect of tobacco cigarettes, intentional self-harm, initial encounter; F17.218 Nicotine dependence, cigarettes, with other nicotine-induced disorders; E66.01 Morbid (severe) obesity due to excess calories; J44.9 Chronic obstructive pulmonary disease, unspecified | CPT/HCPCS: 99213 ==

== ENCOUNTER → 2019-02-28 | Outpatient (CLI) | payer OTHER, MEDICAID ==
[~2019-02-28] MED LIST changes: -ARIP5TAB20 PO; +ARIP5TAB57 PO; +LINE600T12 PO; -LINE600T5 PO
== END ==
LOC: WOUNDCARE 10:57
PROVIDERS: ATTEND Surgery
DX: L98.492 Non-pressure chronic ulcer of skin of other sites with fat layer exposed (principal); T65.222A Toxic effect of tobacco cigarettes, intentional self-harm, initial encounter; L02.215 Cutaneous abscess of perineum; J44.9 Chronic obstructive pulmonary disease, unspecified; F17.218 Nicotine dependence, cigarettes, with other nicotine-induced disorders; E66.01 Morbid (severe) obesity due to excess calories; I96 Gangrene, not elsewhere classified
CPT/HCPCS: 11042

== ENCOUNTER → 2019-03-07 | Outpatient (CLI) | payer OTHER, MEDICAID ==
[~2019-03-07] MED LIST changes: +ARIP5TAB20 PO; -ARIP5TAB57 PO; -LINE600T12 PO; +LINE600T5 PO
== END ==
LOC: WOUNDCARE 10:59
PROVIDERS: ATTEND Surgery
DX: L98.492 Non-pressure chronic ulcer of skin of other sites with fat layer exposed (principal); T65.222A Toxic effect of tobacco cigarettes, intentional self-harm, initial encounter; L02.215 Cutaneous abscess of perineum; J44.9 Chronic obstructive pulmonary disease, unspecified; E66.01 Morbid (severe) obesity due to excess calories; F17.218 Nicotine dependence, cigarettes, with other nicotine-induced disorders; I96 Gangrene, not elsewhere classified
CPT/HCPCS: 99213

== ENCOUNTER → 2019-03-14 | Outpatient (CLI) | payer OTHER, MEDICAID | LOC: WOUNDCARE 10:34 | PROVIDERS: ATTEND Surgery | DX: L92.8 Other granulomatous disorders of the skin and subcutaneous tissue (principal); L98.492 Non-pressure chronic ulcer of skin of other sites with fat layer exposed; T65.222A Toxic effect of tobacco cigarettes, intentional self-harm, initial encounter; L02.215 Cutaneous abscess of perineum; J44.9 Chronic obstructive pulmonary disease, unspecified; F17.218 Nicotine dependence, cigarettes, with other nicotine-induced disorders; E66.01 Morbid (severe) obesity due to excess calories; I96 Gangrene, not elsewhere classified | CPT/HCPCS: 17250 ==

== ENCOUNTER → 2019-03-21 | Outpatient (CLI) | payer OTHER, MEDICAID | LOC: WOUNDCARE 10:45 | PROVIDERS: ATTEND Surgery | DX: L92.8 Other granulomatous disorders of the skin and subcutaneous tissue (principal); L98.492 Non-pressure chronic ulcer of skin of other sites with fat layer exposed; T65.222A Toxic effect of tobacco cigarettes, intentional self-harm, initial encounter; L02.215 Cutaneous abscess of perineum; J44.9 Chronic obstructive pulmonary disease, unspecified; E66.01 Morbid (severe) obesity due to excess calories; I96 Gangrene, not elsewhere classified; F17.218 Nicotine dependence, cigarettes, with other nicotine-induced disorders | CPT/HCPCS: 17250 ==

== ENCOUNTER → 2019-03-28 | Outpatient (CLI) | payer OTHER, MEDICAID | LOC: WOUNDCARE 11:00 | PROVIDERS: ATTEND Preventive Medicine Undersea and Hyperbaric Medicine | DX: L98.492 Non-pressure chronic ulcer of skin of other sites with fat layer exposed (principal); L02.215 Cutaneous abscess of perineum; L92.8 Other granulomatous disorders of the skin and subcutaneous tissue; T65.222A Toxic effect of tobacco cigarettes, intentional self-harm, initial encounter; J44.9 Chronic obstructive pulmonary disease, unspecified; F17.218 Nicotine dependence, cigarettes, with other nicotine-induced disorders; E66.01 Morbid (severe) obesity due to excess calories | CPT/HCPCS: 99212 ==

== ENCOUNTER → 2019-09-26 | Outpatient (CLI) | payer OTHER, MEDICAID ==
[~2019-09-26] MED LIST changes: -ARIP5TAB20 PO; +ARIP5TAB57 PO; +LINE600T12 PO; -LINE600T5 PO
--- NOTE | 2019-09-26 15:14 | Diagnostic Imaging Report ---
INDICATION: Shortness of breath. EXAMINATION: PA and lateral chest. FINDINGS: Heart size and pulmonary vascularity are normal. Lungs are clear. There are no effusions or pneumothoraces. IMPRESSION: Negative chest. Dictated by: Dictated on workstation # [id number]
== END ==
LOC: RAD 14:38
PROVIDERS: ATTEND Nurse Practitioner Family
DX: J44.9 Chronic obstructive pulmonary disease, unspecified (principal)
CPT/HCPCS: 71046

== ENCOUNTER → 2020-01-13 | Outpatient (CLI) | payer OTHER, MEDICAID | LOC: LABNPT 06:40 | PROVIDERS: ATTEND Family Medicine | DX: R09.81 Nasal congestion (principal); R05 Cough; R06.00 Dyspnea, unspecified; R51.9 Headache, unspecified; Z20.828 Contact with and (suspected) exposure to other viral communicable diseases | CPT/HCPCS: 87635 ==

== ENCOUNTER 2020-05-23 14:40 | Emergency (ER) | payer OTHER, MEDICAID ==
[~2020-05-23] VITALS: Ht 162.6 cm; Wt 94.3 kg
--- NOTE | 2020-05-23 14:54 | ED General ---
General Chief Complaint: Neurological Problems Stated Complaint: NUMBNESS/PAIN L EXT Source of Information: Patient Exam Limitations: No Limitations History of Present Illness Date Seen by Provider: May 23, 2020 Time Seen by Provider: 14:52 Initial Comments To ER with reports of pain and numbness in bilateral lower extremities. She was brought to the emergency room by EMS. She stood up from the slot machine and noticed that she was numb from the waist down. She is on Lyrica for chronic neuropathy but typically that begins a little bit lower. She does not have numbness of the genitals nor does she have loss of control of bowel or bladder. No history of cancer no fevers or chills. She is concerned because she had a similar episode about a year ago and during that time was found to have low blood pressure and hyponatremia. Timing/Duration: 1-2 Days Severity: Moderate Associated Systoms: Denies Symptoms Allergies and Home Medications Allergies Coded Allergies: No Known Drug Allergies (Unverified , 10/10/10) Home Medications Albuterol Sulfate 2.5 Mg/3 Ml Vial.neb, 2.5 MG NEB Q4H PRN for SHORTNESS OF BREATH, (Reported) Albuterol/Ipratropium 4 Gm Aero, 1 PUFF IH QID PRN for SHORTNESS OF BREATH, (Reported) Aripiprazole 5 Mg Tablet, 5 MG PO DAILY, (Reported) Budesonide/Formoterol Fumarate 10.2 Gm Hfa.aer.ad, 2 PUFF IH BID, (Reported) Calcium Carbonate/Vitamin D3 1 Each Tablet, 1 TAB PO HS, (Reported) Cyanocobalamin (Vitamin B-12) 500 Mcg Tablet, 500 MCG PO DAILY, (Reported) Dexlansoprazole 60 Mg Cap.dr.bp, 60 MG PO DAILY, (Reported) Diclofenac Sodium 100 Gm Gel..gram., 2 GM TP TID PRN for JOINT PAIN, (Reported) Duloxetine HCl 60 Mg Capsule.dr, 60 MG PO BID, (Reported) Fluticasone Propionate 16 Gm [place].susp, 2 SPRAYS NS DAILY, (Reported) Hydrocodone Bit/Acetaminophen 1 Tab Tab, 1 TAB PO Q4H PRN for PAIN-MODERATE Prescribed by: GAVIN WAGNER on 01/03/19 1240 Levothyroxine Sodium 112 Mcg Tablet, 112 MCG PO DAILY, (Reported) Linezolid 600 Mg Tablet, 600 MG PO BID Prescribed by: GAVIN WAGNER on 01/03/19 1236 Losartan Potassium 100 Mg Tablet, 100 MG PO DAILY, (Reported) Magnesium Oxide 400 Mg Capsule, 400 MG PO DAILY Prescribed by: GAVIN WAGNER on 01/03/19 1240 Potassium Chloride 20 Meq Tab.er.prt, 20 MEQ PO DAILY@0700 Prescribed by: GAVIN WAGNER on 01/03/19 1240 Rosuvastatin Calcium 20 Mg Tablet, 20 MG PO DAILY, (Reported) Patient Home Medication List Home Medication List Reviewed: Yes Review of Systems Review of Systems Constitutional: see HPI EENTM: see HPI Respiratory: no symptoms reported Cardiovascular: no symptoms reported Genitourinary: no symptoms reported Musculoskeletal: see HPI Skin: no symptoms reported Psychiatric/Neurological: No Symptoms Reported Hematologic/Lymphatic: No Symptoms Reported Past [id number] Hx Patient Social History Type Used: Cigarettes 2nd Hand Smoke Exposure: Yes Recent Hopitalizations: No Immunizations Up To Date Tetanus Booster (TDap): Unknown Date of Pneumonia Vaccine: Mar 03, 2012 Date of Influenza Vaccine: Jan 11, 2018 Seasonal Allergies Seasonal Allergies: Yes Past Medical History Surgeries: Yes (neck, rotator cuff repair) Adenoidectomy, Gallbladder, Hysterectomy, Thyroidectomy, Tonsillectomy, Tubal Ligation Respiratory: Yes COPD Cardiac: Yes Hypertension Neurological: Yes Headaches /Migraines, Neuropathy [employer] History: Hysterectomy Gastrointestinal: Yes Gastroesophageal Reflux Musculoskeletal: Yes Arthritis Endocrine: Yes Loss of Vision: Denies Hearing Impairment: Denies Cancer: No Psychosocial: Yes Anxiety, Depression Integumentary: No Blood Disorders: No Family Medical History Copd 19 FATHER 19 MOTHER Diabetes mellitus 19 MOTHER Hypertension 19 FATHER G8 SISTER Myocardial infarction 19 FATHER 19 MOTHER Heart Disease, Cancer, COPD, Diabetes, Hypertension Physical Exam Vital Signs Vital Signs - First Documented 05/23/20 14:46 Temp 36.3 Pulse 97 Resp 18 B/P (MAP) 96/63 (74) Pulse Ox 97 O2 Delivery Nasal Cannula O2 Flow Rate 3.00 Capillary Refill : Height, Weight, BMI Height: 5'4.00" Weight: 197lbs. 0.0oz. [id number]; 33.05 BMI Method:Stated General Appearance: No Apparent Distress, WD/WN, Other (Alert and oriented GCS 15 blood pressure around 90 systolic. Both lower extremities are warm.) Eyes: Bilateral Eye Normal Inspection, Bilateral Eye PERRL, Bilateral Eye EOMI HEENT: PERRL/EOMI, TMs Normal Neck: Full Range of Motion, Normal Inspection Respiratory: No Accessory Muscle Use, No Respiratory Distress Gastrointestinal: Normal Bowel Sounds, Non Tender, Soft Extremity: Normal Capillary Refill, Normal Inspection Neurologic/Psychiatric: Alert, Oriented x3 Skin: Normal Color, Warm/Dry Focused Exam Lactate Level 05/23/20 15:55: Lactic Acid Level 2.80*H 05/23/20 17:56: Lactic Acid Level Laboratory Tests Test 05/23/20 15:55 05/23/20 17:56 Lactic Acid Level 2.80 MMOL/L (0.50-2.00) *H Progress/Results/Core Measures Suspected Sepsis SIRS Temperature: Pulse: Respiratory Rate: Laboratory Tests 05/23/20 14:50: White Blood Count 19.2H Blood Pressure / Mean: 05/23/20 15:55: Lactic Acid Level 2.80*H 05/23/20 17:56: Laboratory Tests 05/23/20 14:50: Creatinine 1.05, Platelet Count 341, Total Bilirubin 0.3 Results/Orders Lab Results Laboratory Tests Test 05/23/20 14:50 05/23/20 15:55 05/23/20 17:05 05/23/20 17:56 Range/Units White Blood Count 19.2 H 4.3-11.0 10^3/uL Red Blood Count 4.04 3.80-5.11 10^6/uL Hemoglobin 12.3 11.5-16.0 g/dL Hematocrit 38 35-52 % Mean Corpuscular Volume 94 80-99 fL Mean Corpuscular Hemoglobin 30 25-34 pg Mean Corpuscular Hemoglobin Concent 33 32-36 g/dL Red Cell Distribution Width 13.6 10.0-14.5 % Platelet Count 341 130-400 10^3/uL Mean Platelet Volume 9.0 9.0-12.2 fL Immature Granulocyte % (Auto) 1 % Neutrophils (%) (Auto) 83 H 42-75 % Lymphocytes (%) (Auto) 12 12-44 % Monocytes (%) (Auto) 5 0-12 % Eosinophils (%) (Auto) 0 0-10 % Basophils (%) (Auto) 0 0-10 % Neutrophils # (Auto) 15.8 H 1.8-7.8 10^3/uL Lymphocytes # (Auto) 2.2 1.0-4.0 10^3/uL Monocytes # (Auto) 0.9 0.0-1.0 10^3/uL Eosinophils # (Auto) 0.1 0.0-0.3 10^3/uL Basophils # (Auto) 0.1 0.0-0.1 10^3/uL Immature Granulocyte # (Auto) 0.2 H 0.0-0.1 10^3/uL Neutrophils % (Manual) 79 % Lymphocytes % (Manual) 15 % Monocytes % (Manual) 6 % Blood Morphology Comment NORMAL Sodium Level 134 L 135-145 MMOL/L Potassium Level 3.8 3.6-5.0 MMOL/L Chloride Level 96 L 98-107 MMOL/L Carbon Dioxide Level 26 21-32 MMOL/L Anion Gap 12 5-14 MMOL/L Blood Urea Nitrogen 3 L 7-18 MG/DL Creatinine 1.05 0.60-1.30 MG/DL Estimat Glomerular Filtration Rate 54 BUN/Creatinine Ratio 3 Glucose Level 113 H 70-105 MG/DL Calcium Level 7.8 L 8.5-10.1 MG/DL Corrected Calcium 8.5 8.5-10.1 MG/DL Total Bilirubin 0.3 0.1-1.0 MG/DL Aspartate Amino Transf (AST/SGOT) 9 5-34 U/L Alanine Aminotransferase (ALT/SGPT) 8 0-55 U/L Alkaline Phosphatase 101 40-136 U/L C-Reactive Protein High Sensitivity 1.38 H 0.00-0.50 MG/DL Total Protein 5.9 L 6.4-8.2 GM/DL Albumin 3.1 L 3.2-4.5 GM/DL Procalcitonin 0.04 <0.10 NG/ML Lactic Acid Level 2.80 *H 0.50-2.00 MMOL/L Urine Color YELLOW Urine Clarity CLEAR Urine pH 5.0 5-9 Urine Specific [place] 1.010 L 1.016-1.022 Urine Protein NEGATIVE NEGATIVE Urine Glucose (UA) NEGATIVE NEGATIVE Urine Ketones NEGATIVE NEGATIVE Urine Nitrite NEGATIVE NEGATIVE Urine Bilirubin NEGATIVE NEGATIVE Urine Urobilinogen 0.2 < = 1.0 MG/DL Urine Leukocyte Esterase NEGATIVE NEGATIVE Urine RBC (Auto) NEGATIVE NEGATIVE Urine RBC NONE /HPF Urine WBC 0-2 /HPF Urine Crystals PRESENT H /LPF Urine Amorphous Sediment FEW KEREN URATES H /LPF Urine Bacteria NEGATIVE /HPF Urine Casts NONE /LPF Urine Mucus NEGATIVE /LPF Urine Culture Indicated NO My Orders Orders - OLIVER GUTIERREZ APRN Cbc With Automated Diff (05/23/20 14:50) Comprehensive Metabolic Panel (05/23/20 14:50) Ua Culture If Indicated (05/23/20 14:50) Ed Iv/Invasive Line Start (05/23/20 14:50) Lactated Ringers (Lr 1000 Ml Iv Solution (05/23/20 15:00) Ketorolac Injection (Toradol Injection) (05/23/20 15:00) Manual Differential (05/23/20 14:50) Chest 1 View, Ap/Pa Only (05/23/20 15:42) Blood Culture (05/23/20 15:42) Lactic Acid Analyzer (05/23/20 15:42) Hs C Reactive Protein (05/23/20 15:42) Procalcitonin (Pct) (05/23/20 15:42) Ns Iv 1000 Ml (Sodium Chloride 0.9%) (05/23/20 16:30) Albuterol/Ipra Inhalation Soln (Duoneb I (05/23/20 17:52) Albuterol/Ipra Inhalation Soln (Duoneb I (05/23/20 18:00) Svn Small Volume Nebulizer (05/23/20 18:00) Medications Given in ED Current Medications Medications Dose Ordered Sig/Allan Route Start Time Stop Time Status Last Admin Dose Admin Ketorolac Tromethamine 15 mg ONCE ONCE IVP 05/23/20 15:00 05/23/20 15:01 DC 05/23/20 15:00 15 MG Vital Signs/I&O 05/23/20 05/23/20 14:46 15:00 Temp 36.3 36.3 Pulse 97 Resp 18 B/P (MAP) 96/63 (74) Pulse Ox 97 O2 Delivery Nasal Cannula O2 Flow Rate 3.00 Capillary Refill : Departure Communication (Admissions) 9564-states she is feeling much better. Does have some audible expiratory wheezes. Oxygen saturation is 94% on 2 L of oxygen. She has known COPD. Heart rate is 88. Blood pressure is up to 114/70 after 2 liters of IV fluids. She states her legs feel back to normal now. No fevers or chills. No other infectious symptoms. Her CRP is minimally elevated procalcitonin is normal. I suspect the leukocytosis lactic acid and hypotension are from volume depletion. Impression Primary Impression: Volume depletion Additional Impression: COPD exacerbation Disposition: HOME, SELF-CARE Condition: Stable Departure-Patient Inst. Decision time for Depature: 18:15 Referrals: GAVIN WAGNER DO (PCP/Family) Primary Care Physician Patient Instructions: COPD Exacerbation, Adult ED Add. Discharge Instructions: 1. Take the steroids and antibiotics as directed. Return promptly to ER for any fevers chills or recurrent/worsening symptoms. All discharge instructions reviewed with patient and/or family. Voiced understanding. Scripts Cefuroxime Axetil (Cefuroxime) 500 Mg Tablet 500 MG PO BID, #10 TAB Prov: OLIVER GUTIERREZ APRN 05/23/20 Prednisone (Prednisone) 20 Mg Tab 40 MG PO DAILY, #6 TAB 0 Refills Prov: OLIVER GUTIERREZ APRN 05/23/20 OLIVER GUTIERREZ APRN May 23, 2020 14:54
[2020-05-23] MEDS ORDERED: LACTATED RINGERS 1,000 ML IV SCH (15:00)
[2020-05-23] MEDS ORDERED: KETOROLAC 30 MG/ML VIAL IVP ONE (15:00)
[2020-05-23 15:02] LABS: BASOPHILS # (AUTO) 0.1 10^3/uL (0.0-0.1); BASOPHILS % (AUTO) 0 % (0-10); EOSINOPHILS # (AUTO) 0.1 10^3/uL (0.0-0.3); EOSINOPHILS % (AUTO) 0 % (0-10); HEMATOCRIT 38 % (35-52); HEMOGLOBIN 12.3 g/dL (11.5-16.0); LYMPHOCYTES # (AUTO) 2.2 10^3/uL (1.0-4.0); LYMPHOCYTES % (AUTO) 12 % (12-44); MEAN CORPUSCULAR HEMOGLOBIN 30 pg (25-34); MEAN CORPUSCULAR HGB CONC 33 g/dL (32-36); MEAN CORPUSCULAR VOLUME 94 fL (80-99); MONOCYTES # (AUTO) 0.9 10^3/uL (0.0-1.0); MONOCYTES % (AUTO) 5 % (0-12); NEUTROPHILS # (AUTO) 15.8 10^3/uL (1.8-7.8); NEUTROPHILS % (AUTO) 83 % (42-75); PLATELET COUNT 341 10^3/uL (130-400); WHITE BLOOD COUNT 19.2 10^3/uL (4.3-11.0)
[2020-05-23 15:17] LABS: ALBUMIN 3.1 GM/DL (3.2-4.5); POTASSIUM 3.8 MMOL/L (3.6-5.0)
[2020-05-23 15:18] LABS: CALCIUM 7.8 MG/DL (8.5-10.1)
[2020-05-23 15:20] LABS: TOTAL PROTEIN 5.9 GM/DL (6.4-8.2)
[2020-05-23 15:21] LABS: BILIRUBIN,TOTAL 0.3 MG/DL (0.1-1.0)
[2020-05-23 15:23] LABS: CREATININE SERUM 1.05 MG/DL (0.60-1.30)
[2020-05-23 15:43] LABS: LYMPHOCYTES % (MANUAL) 15 %; MONOCYTES % (MANUAL) 6 %; NEUTROPHILS % (MANUAL) 79 %
[2020-05-23 15:44] LABS: RBC MORPH NORMAL
--- NOTE | 2020-05-23 16:09 | Diagnostic Imaging Report ---
INDICATION: Leukocytosis Portable chest 4:09 PM Heart size and pulmonary vascularity are normal. Lungs are clear. There are no effusions or pneumothoraces. IMPRESSION: Negative chest Dictated by: Dictated on workstation # [id number]
[2020-05-23] MEDS ORDERED: NS IV 1000 ML 1,000 ML IV SCH (16:30)
[2020-05-23 17:12] LABS: BILIRUBIN,URINE NEGATIVE (NEGATIVE); CLARITY,URINE CLEAR; COLOR,URINE YELLOW; GLUCOSE, URINE (UA) NEGATIVE (NEGATIVE); KETONES,URINE NEGATIVE (NEGATIVE); LEUKOCYTE ESTERASE ,URINE NEGATIVE (NEGATIVE); NITRITE,URINE NEGATIVE (NEGATIVE); PROTEIN,URINE NEGATIVE (NEGATIVE)
[2020-05-23 17:22] LABS: AMORPHOUS SEDIMENT,UR FEW AMOR URATES /LPF; BACTERIA,URINE NEGATIVE /HPF; WBC,URINE 0-2 /HPF
[2020-05-23] MEDS ORDERED: RT-ALBUTEROL/IPRATROPIUM 3 ML (DUONEB) VIAL ONE (17:52)
[2020-05-23] MEDS ORDERED: RT-ALBUTEROL/IPRATROPIUM 3 ML (DUONEB) VIAL INH ONE (18:00)
[2020-05-23] MEDS ORDERED: cefTRIAXone FOR IV USE 1,000 MG in WATER (STERILE) FOR INJECTION 10 ML IV ONE (18:15)
[2020-05-23] MEDS ORDERED: predniSONE 20 MG TAB PO ONE (18:15)
[2020-05-23] MEDS ORDERED: PRD20T PO (18:17)
[2020-05-23] MEDS ORDERED: CEFU500T63 PO (18:17)
[2020-05-23 18:31] VITALS: BP 103/64
== END 2020-05-23 18:31 | disposition home or self-care (01) ==
LOC: EDUNIT# 14:40 → ER 14:43
DX: E86.9 Volume depletion, unspecified (principal); J44.1 Chronic obstructive pulmonary disease with (acute) exacerbation; I10 Essential (primary) hypertension; F41.9 Anxiety disorder, unspecified; F32.9 Major depressive disorder, single episode, unspecified; K21.9 Gastro-esophageal reflux disease without esophagitis; Z83.3 Family history of diabetes mellitus; Z82.49 Family history of ischemic heart disease and other diseases of the circulatory system; Z80.9 Family history of malignant neoplasm, unspecified; Z77.22 Contact with and (suspected) exposure to environmental tobacco smoke (acute) (chronic)
CPT/HCPCS: 36415; 51701; 71045; 80053; 81000; 83605; 84145; 85007; 85027; 86141; 87040